=== PATIENT | female | born 1940 | race Caucasian/White ===

== ENCOUNTER 2016-09-23 05:21 | Inpatient (IN) | payer MEDICARE, OTHER ==
[2016-09-22 15:36] VITALS: BMI 25.8
[~2016-09-23] VITALS: Ht 162.6 cm; Wt 69.0 kg
[2016-09-23] VITALS (21 sets, daily range): BP systolic 125–159; BP diastolic 58–85; PULSE 63–88; RESP 17–19; Ht 162.6 cm; Wt 69.0 kg
[2016-09-23] MEDS ORDERED: LACTATED RINGER'S 1,000 ML IV* SCH (05:30)
[2016-09-23] MEDS ORDERED: CEFAZOLIN 2 GM/50 ML (PMX) 50 ML IVPB ONE (05:30)
[2016-09-23] MEDS ORDERED: ROCURONIUM 50 MG INJ ONE (06:47)
[2016-09-23] MEDS ORDERED: GLYCOPYRROLATE 1 MG INJ ONE (06:47)
[2016-09-23] MEDS ORDERED: LIDOCAINE 2% (SDV) 5 ML INJ ONE (06:47)
[2016-09-23] MEDS ORDERED: NEOSTIGMINE 3 MG/3 ML SYRINGE ONE (06:47)
[2016-09-23] MEDS ORDERED: PROPOFOL 20 ML ONE (06:47)
[2016-09-23] MEDS ORDERED: FENTAnyl 50 MCG/ML VIAL ONE (06:48)
[2016-09-23] MEDS ORDERED: MIDAZOLAM 1 MG/ML 2 ML INJ ONE (06:48)
[2016-09-23] MEDS ORDERED: BUPIVACAINE 0.25%/EPI (SDV) 30 ML INJ ONE ×2 (06:54→12:34)
[2016-09-23] MEDS ORDERED: GELATIN SIZE 100 SPONGE ONE (06:54)
[2016-09-23] MEDS ORDERED: POLYMYXIN/BACITRACIN 1L IRRIG ONE (06:54)
[2016-09-23] MEDS ORDERED: BUPIVACAINE 0.25% (MPF) 30 ML INJ ONE (06:54)
[2016-09-23] MEDS ORDERED: THROMBIN 5000 UNIT VIAL ONE (06:55)
[2016-09-23] MEDS ORDERED: ONDANSETRON 4 MG INJ IV PRN (07:00)
[2016-09-23] MEDS ORDERED: MIDAZOLAM 1 MG/ML 2 ML INJ IV PRN (07:00)
[2016-09-23] MEDS ORDERED: CEFAZOLIN 1 GM INJ ONE (07:00)
[2016-09-23] MEDS ORDERED: hydrALAzine 20 MG INJ IV PRN (07:00)
[2016-09-23] MEDS ORDERED: EPHEDrine SULFATE 50 MG/5 ML SYG IV PRN (07:00)
[2016-09-23] MEDS ORDERED: ATROPINE 1 MG/10 ML SYRINGE IV PRN (07:00)
[2016-09-23] MEDS ORDERED: DEXAMETHASONE 4 MG/ML 1 ML INJ ONE (07:00)
[2016-09-23] MEDS ORDERED: ONDANSETRON 4 MG INJ ONE (07:00)
[2016-09-23] MEDS ORDERED: MEPERIDINE 25 MG INJ IV PRN (07:00)
[2016-09-23] MEDS ORDERED: morphine (1 MG/ML) 10ML SYRINGE IV PRN ×3 (07:00)
[2016-09-23] MEDS ORDERED: OXYCODONE/ACETAMINOPHEN (5/325) TAB PO PRN ×2 (07:00)
[2016-09-23] MEDS ORDERED: FENTAnyl 50 MCG/ML VIAL IV PRN ×2 (07:00)
[2016-09-23] MEDS ORDERED: DIPHENHYDRAMINE 50 MG INJ IV PRN (07:00)
[2016-09-23] MEDS ORDERED: LABETALOL HCL 20MG INJ IV PRN (07:00)
[2016-09-23] MEDS ORDERED: HYDROmorphONE (0.2 MG/ML) 10ML SYG IV PRN ×3 (07:00)
--- NOTE | 2016-09-23 07:25 | HPN ---
Date/Time of Note Date/Time of Note DATE: 09/23/16 TIME: 07:25 Interval H&P Admission Note Pt. seen H&P reviewed: No system changes CANDICE PORTER MD Sep 23, 2016 07:25
[2016-09-23] MEDS ORDERED: CITA-104 PO (07:49)
[2016-09-23] MEDS ORDERED: LORA1TAB PO (07:49)
[2016-09-23] MEDS ORDERED: IBUP200C11 PO (07:49)
[2016-09-23] MEDS ORDERED: VENL75TA PO (07:49)
[2016-09-23] MEDS ORDERED: METO25TA4 PO (07:49)
[2016-09-23] MEDS ORDERED: AMLO-147 PO (07:49)
[2016-09-23] MEDS ORDERED: hydrALAzine 20 MG INJ ONE (08:34)
[2016-09-23] MEDS ORDERED: BUPIVACAINE LIPOSOME/PF 266 MG/20 ML VIAL INFIL SCH (09:00)
[2016-09-23] MEDS ORDERED: THROMBIN 5000 UNIT VIAL TOP ONE (12:43)
[2016-09-23] MEDS ORDERED: NACL 0.9% 3 ML SYG IV SCH (14:00)
[2016-09-23] MEDS ORDERED: CEPASTAT LOZENGE MT PRN (14:00)
[2016-09-23] MEDS ORDERED: BETHANECHOL 25 MG TAB PO PRN (14:00)
[2016-09-23] MEDS ORDERED: HYDROCODONE/APAP (5/325) TAB PO PRN ×2 (14:00)
[2016-09-23] MEDS ORDERED: AL HYDROX/MG HYDROX/SIMETH 30 ML CUP PO PRN (14:00)
[2016-09-23] MEDS ORDERED: ACETAMINOPHEN 325 MG TAB PO PRN (14:00)
[2016-09-23] MEDS ORDERED: NALOXONE (0.4 MG/ML) INJ IV PRN (14:00)
[2016-09-23] MEDS ORDERED: ZOLPIDEM 5 MG TAB PO PRN (14:00)
[2016-09-23] MEDS ORDERED: PROCHLORPERAZINE 10 MG TAB PO PRN (14:00)
[2016-09-23] MEDS ORDERED: TRIMETHOBENZAMIDE 100 MG/ML VIAL IM PRN (14:00)
[2016-09-23] MEDS ORDERED: DIPHENHYDRAMINE 50 MG CAP PO PRN (14:00)
[2016-09-23] MEDS ORDERED: HYDROmorphONE 0.2 MG/ML PCA ONE (14:02)
[2016-09-23] MEDS: HYDROmorphONE 0.2 MG/ML PCA IV SCH (14:11)
[2016-09-23] MEDS ORDERED: LORAZEPAM 1 MG TAB PO PRN (14:30)
[2016-09-23] MEDS ORDERED: LORAZEPAM 0.5 MG TAB PO PRN (14:30)
--- NOTE | 2016-09-23 14:42 | RADRPT ---
PROCEDURE: Intraoperative imaging of the lumbar spine with fluoroscopy. CLINICAL INDICATION: Back pain. Intraoperative. TECHNIQUE: 10 images of the lumbar spine were obtained in the operating room with an image intensi fier. No radiologist was in attendance. 46.2 seconds of fluoroscopy time was used. COMPARISON: No prior study is available for comparison. FINDINGS: Images demonstrate surgical instruments overlying the lumbar spine. IMPRESSION: 1. Intraoperative imaging of the lumbar spine. RPTAT: QQ .Juan Smith MD, MD Date Time Electronically viewed and signed by .Juan Smith MD, MD on 09/23/2016 14:42 .R/
[2016-09-23] MEDS ORDERED: CEFAZOLIN 1 GM/50 ML (PMX) 50 ML IVPB ONE (14:57)
[2016-09-23] MEDS: CEFAZOLIN 1 GM/50 ML (PMX) 50 ML IVPB SCH ×2 (15:07→20:40)
--- NOTE | 2016-09-23 15:37 | CONS ---
DATE OF ADMISSION: 09/23/2016 DATE OF CONSULTATION: TYPE OF CONSULTATION: Nephrology. Thank you, Dr. Tello for asking me to participate in the medical management of this patient. REASON FOR CONSULTATION: To manage the patient's hypertension, hyperlipidemia, COPD and chronic con stipation. HISTORY OF PRESENT ILLNESS: This 76-year-old female is now in the postanesthesia recovery room afte r undergoing a lumbar spine surgery by Dr. Tello. The patient is just coming out of anesthesia. She does respond to verbal stimuli and follows simple commands. The patient apparently was having what was thought to be claudication at rest; however, according to a note on the chart from the [facility] a vascular workup was done and did not find vascular disease. An MRI was do ne which showed severe degenerative disk disease. The patient was advised to undergo a lumbar spine surgery, which was performed today. The patient underwent an L3-L5 levels laminectomy. This was d one for severe spinal stenosis and leg pain. PAST MEDICAL HISTORY: Chronic obstructive pulmonary disease, aortic atherosclerosis, hypertension, hyperlipidemia and chronic constipation. PAST MEDICAL HISTORY: She is a former smoker. FAMILY HISTORY: Father, colon cancer. Mother, diabetes mellitus. SOCIAL HISTORY: The patient has a 50 to 45-dlbl-drzq cigarette smoking history. He has not smoked in 8 years. She drinks alcohol occasionally. CURRENT MEDICATIONS: Include the followin. Amlodipine 10 mg a day. 2. Vitamin D3 2000 units a day. 3. Citalopram 60 mg a day. 4. Clonidine 0.1 mg twice a day. 5. Ibuprofen p.r.n. pain, which was discontinued preoperatively. 6. Lorazepam 1 mg one-half tablet twice a day as needed for pain. 7. Metoprolol 25 mg twice a day. 8. Venlafaxine 75 mg a day. PHYSICAL EXAMINATION: GENERAL: At this time reveals an elderly female in no apparent distress. She is lethargic, but philippe uses to verbal stimuli. VITAL SIGNS: Pulse of 80, blood pressure 140/59, O2 saturation 98% on 2 liter nasal cannula. HEENT: Head normocephalic. EYES: Extraocular muscles intact. NOSE AND MOUTH: Normal. NECK: Supple. No neck vein distention. LUNGS: Clear to auscultation. HEART: Regular rhythm. No murmurs, gallops or rubs. ABDOMEN: Soft. EXTREMITIES: No peripheral edema. IMPRESSION: The patient's vital signs are stable postoperatively. Her blood pressure is in an acce ptable range. I will manage the patient's hypertension, hyperlipidemia, COPD and depression. PLAN: 1. Resume routine medications. 2. Check labs in the morning. 3. Postop lumbar spine surgery protocol. 4. I will follow the patient along with you medically. Dictated By: KODI RASCON MD, ND/SONYA Conf#: [id number] DID#: [id number]
[2016-09-23] MEDS: DEXTROSE 5%-0.45% NACL 1,000 ML IV SCH (16:03)
--- NOTE | 2016-09-23 17:12 | EN ---
Date/Time of Note Date/Time of Note DATE: 09/23/16 TIME: 17:07 Event Note Surgery Surgery Event Note ORTHO SPINE STAFF POST OP CHECK S: "Having really good dreams. Speech slurred, but alert and reasonably oriented to time and place. Minor pain in lumbar. "i'm not really having any pain." O: Wounds dry. Calf/ankle strength is normal. Sensation in feet/ankles normal. A: Stable PO course. P: Per Landscape Photographer. Also: 1. Ambulate in AM 2. Progress diet 3. Lumbar corset. 4. Consider DC in AM if conditions permit. 5. Follow up in [place] next week. KATERIN HERNANDEZ MD Sep 23, 2016 17:11
--- NOTE | 2016-09-23 17:14 | EN ---
Date/Time of Note Date/Time of Note DATE: 09/23/16 TIME: 17:12 Event Note Surgery Surgery Event Note BRIEF OP NOTE PRE OP DX: SPINAL STENOSIS, L3-L5 R>L, L3-4> L4-L5 POST OP DX: SAME PROCEDURE: MIS FERRO L3-L5, BILATERAL FROM RIGHT MIS APPROACH X2. SURGEON MARY [employer] PICKER [place] EBL 10 CC COMPLICATIONS NONE DRAINS NONE FINDINGS; STENOSIS EXPECTED, SEVERE L3-4>L4-L5 DISP TO PAR IN SATISFACTORY CONDITION. KATERIN HERNANDEZ MD Sep 23, 2016 17:14
[2016-09-23] MEDS ORDERED: CEFAZOLIN 1 GM/50 ML (PMX) 50 ML IVPB SCH (18:00)
--- NOTE | 2016-09-23 18:51 | OPR ---
DATE OF OPERATION: 09/23/2016 PREOPERATIVE DIAGNOSIS: Severe spinal stenosis, L3-L4 greater than L4-L5. POSTOPERATIVE DIAGNOSIS: Severe spinal stenosis, L3-L4 greater than L4-L5. SURGEON: Aj Tello MD CONCRETE PANEL INSTALLER: Blaze Chinchilla MD OPERATION PERFORMED: 1. MIS lateral approach to L3-L4 for bilateral decompressive laminectomy, L3- L4. 2. MIS lateral approach to L4-L5 for L4-L5 bilateral decompressive laminectomy. DESCRIPTION OF PROCEDURE: The patient was identified in the holding unit, and her questions were answered. The surgical site was marked, and she was taken to the operating room and received general endotracheal anesthetic. She was carefully positioned face down on the [place] [employer] spinal table with care being taken to protect all pressure points. Steridrapes were applied, and the wound was prepped and draped in the usual manner. C-arm was brought into the field, and working x-rays were taken in order to delineate a line 4 cm lateral to the midline which corresponded to 2 crosswise lines at the L3-L4 and the L4-L5 disk spaces. Beginning at the L3-L4 disk space, the skin was infiltrated with Marcaine, and a 25 mm incision was made 4 cm lateral to the midline overlying the L3-L4 disk space. This was taken down through the fascia using first sharp and then electrocautery. Blunt dissection was then used to isolate the L3-L4 facet. Sequential dilators were then used. A 6 cm x tube retractor was then employed and fastened into place using the snake support. The microscope was brought into the field. The soft tissue was removed from this facet. The high-speed drill was then brought in, and the inferior aspect of the inferior articulating process of L3 was drilled off. The superior facet was then exposed. This was carefully drilled back to the level of the pedicle. Additional inferior facet was taken proximally onto the lamina and eventually well across the midline. This was done meticulously, and the ligamentum flavum was allowed to remain in place. Once adequate bony decompression had been obtained, well lateral to the pedicle, superior to the disk space and across the midline, the ligamentum flavum was removed piecemeal. This enabled us to palpate along the L4 pedicle, up into the L3-L4 foramen where the superior facet had been removed, proximally to well above the disk space, and across the midline to the facet joint on the left at L3-L4. The wound was then carefully irrigated, and Marcaine with epinephrine was carefully applied to the thecal sac. Exparel 10 mL was infiltrated into the muscles. The retractor had been removed very carefully with bipolar being used to attend to any wall bleeders. Then #1 Vicryl was used for the fascia followed by 2-0 for the subcutaneous tissue followed by 4-0 Monocryl followed by Dermabond. The second procedure was done at L4-L5 on the right and was identical. From 4 cm lateral, a 25 mm incision was made and taken down through the fascia. The L4 -L5 facet joint was palpated manually with blunt dissection. Dilators were then employed, and a 6 cm x tube retractor was then placed into position and fashioned with a snake articulating arm. The facet was then denuded of bone medially, and the intralaminar space was visualized, and soft tissue was removed down to the level of the ligamentum flavum. The drill was employed to remove portions of the facet out to the level of the pedicle and proximally to above the level of the disk space and then across the midline. The ligamentum flavum was then removed piecemeal. We carefully inspected to well across the midline, out into the foramen on the right, distally along the L5 pedicle and then proximally. We irrigated the wound carefully. We applied a small amount of Marcaine with epinephrine and a small amount of Surgifoam. We then removed the retractor carefully using a bipolar to attend to any wall bleeders once the retractor was removed. The fascia was closed with #1 Vicryl. Subcutaneous tissue was closed with 2-0, and Monocryl was used for the skin, followed by Dermabond. SSEP was monitored during the procedure and was observed to return to normal across L3, L4 and L5 roots bilaterally. The sponge and instrument counts were reported as correct. The estimated blood loss was less than 10 mL. The patient tolerated the procedure well without complications and was returned to the supine position, extubated and transferred to the recovery room in satisfactory condition, breathing spontaneously. Dictated By: AJ GRACE/SONYA Conf#: [id number] DID#: [id number] ABY
[2016-09-23] MEDS: RANITIDINE 150 MG TAB PO SCH (20:32)
[2016-09-23] MEDS: METOPROLOL 25 MG TAB PO SCH (20:32)
[2016-09-24] MEDS: DEXTROSE 5%-0.45% NACL 1,000 ML IV SCH ×2 (00:03→11:54)
[2016-09-24 00:05] VITALS: BP 134/95; PULSE 86; RESP 18
[2016-09-24] MEDS: CEFAZOLIN 1 GM/50 ML (PMX) 50 ML IVPB SCH ×2 (03:03→09:21)
[2016-09-24 05:15] LABS: ALBUMIN 3.2 g/dl (3.3-4.9)
[2016-09-24 05:16] LABS: POTASSIUM 4.2 mmol/L (3.5-5.1)
[2016-09-24 05:18] LABS: ALBUMIN/GLOBULIN RATIO 1.39; BILIRUBIN,INDIRECT 0.1 mg/dl (0-1.1); BILIRUBIN,TOTAL 0.1 mg/dl (0.2-1.3); CREATININE 0.89 mg/dl (0.44-1.00); TOTAL PROTEIN 5.5 g/dl (6.1-8.1)
[2016-09-24 05:19] LABS: CALCIUM 8.8 mg/dl (8.4-10.2)
[2016-09-24 05:38] LABS: BASOPHILS % 0.2 % (0.0-2.0); HEMATOCRIT 34.1 % (37.0-47.0); HEMOGLOBIN 11.4 g/dl (12.0-16.0); LYMPHOCYTES # 1.4 10^3/ul (0.8-2.9); LYMPHOCYTES % 12.3 % (15.0-51.0); MEAN CORPUSCULAR HEMOGLOBIN 31.3 pg (29.0-33.0); MEAN CORPUSCULAR HGB CONC 33.5 g/dl (32.0-37.0); MEAN CORPUSCULAR VOLUME 93.3 fl (82.0-101.0); MONOCYTE # 0.9 10^3/ul (0.3-0.9); NEUTROPHILS % 79.5 % (39.0-77.0); PLATELET COUNT 239 10^3/UL (140-440); RED BLOOD COUNT 3.65 10^6/ul (4.20-5.40); RED CELL DISTRIBUTION WIDTH 14.2 % (11.5-14.5); UNCORRECTED WBC 11.4 10^3/ul (4.8-10.8); WHITE BLOOD COUNT 11.4 10^3/ul (4.8-10.8)
[2016-09-24 06:14] LABS: CONDITION 1
[2016-09-24 08:36] VITALS: BP 148/64; RESP 18
[2016-09-24] MEDS: DOCUSATE SODIUM 100 MG CAP PO SCH ×2 (09:20→21:21)
[2016-09-24] MEDS: METOPROLOL 25 MG TAB PO SCH ×2 (09:20→21:22)
[2016-09-24] MEDS: FERROUS SULFATE (EC) 325 MG TAB PO SCH ×3 (09:20→21:21)
[2016-09-24] MEDS: VENLAFAXINE 75 MG TABLET PO SCH (09:20)
[2016-09-24] MEDS: ASCORBIC ACID 500 MG TAB PO SCH ×2 (09:21→21:22)
[2016-09-24] MEDS: CITALOPRAM 20 MG TAB PO SCH (09:21)
[2016-09-24] MEDS: AMLODIPINE 10 MG TAB PO SCH (09:21)
[2016-09-24] MEDS: RANITIDINE 150 MG TAB PO SCH ×2 (09:21→21:22)
--- NOTE | 2016-09-24 09:54 | CONS ---
Date/Time of Note Date/Time of Note DATE: 09/24/16 TIME: 09:45 Assessment/Plan Assessment/Plan Chief Complaint/Hosp Course 1. She is 1 day post op a lumbar spine surgery . She is doing well . 2. continue current medication and PT . 3. liver enzymes are elevated . She is not having abdominal pain . will repeat tomorrow . Problems: Consultation Date/Type/Reason Admit Date/Time Initial Consult Date 24 HR Interval Summary Free Text/Dictation She is doing well . she is 1 day post op a lumbar spine surgery . Constitutional: improved, no complaints Exam/Review of Systems Vital Signs Vitals Vital Signs Date Time Temp Pulse Resp B/P Pulse Ox O2 Delivery O2 Flow Rate FiO2 09/24/16 08:36 98.4 75 18 148/64 97 09/24/16 00:05 Nasal Cannula 2.0 Intake and Output 09/23/16 09/23/16 09/24/16 15:00 23:00 07:00 Intake Total 350 ml 1450 ml Output Total 550 ml 400 ml 2000 ml Balance -550 ml -50 ml -550 ml Exam Constitutional: alert, oriented, well developed Psych: no complaints Respiratory: clear to auscultation, diminished breath sounds Cardiovascular: regular rate and rhythm Musculoskeletal: nl extremities to inspection Results Result Diagram: 09/24/16 0435 09/24/16 0435 Results 24 hrs Laboratory Tests Test 09/24/16 04:35 Alanine Aminotransferase (ALT/SGPT) 105 H Albumin 3.2 L Albumin/Globulin Ratio 1.39 Alkaline Phosphatase 103 Anion Gap 11 Aspartate Amino Transf (AST/SGOT) 110 H Basophils # 0.0 Basophils % 0.2 Blood Urea Nitrogen 15 Calcium Level 8.8 Carbon Dioxide Level 30 Chloride Level 103 Creatinine 0.89 Direct Bilirubin 0.00 Eosinophils # 0.0 Eosinophils % 0.0 Globulin 2.30 Glucose Level 120 Hematocrit 34.1 L Hemoglobin 11.4 L Indirect Bilirubin 0.1 Lymphocytes # 1.4 Lymphocytes % 12.3 L Mean Corpuscular Hemoglobin 31.3 Mean Corpuscular Hemoglobin Concent 33.5 Mean Corpuscular Volume 93.3 Mean Platelet Volume 8.0 Monocytes # 0.9 Monocytes % 8.0 Neutrophils # 9.0 H Neutrophils % 79.5 H Nucleated Red Blood Cells # 0.0 Nucleated Red Blood Cells % 0.0 Platelet Count 239 Potassium Level 4.2 Red Blood Count 3.65 L Red Cell Distribution Width 14.2 Sodium Level 140 Total Bilirubin 0.1 L Total Protein 5.5 L White Blood Count 11.4 H Medications Medications Current Medications Lactated Ringer's 1,000 ml @ 25 mls/hr Q24H IV* ; Start 09/23/16 at 05:30; Stop 09/24/16 at 21:29 Dextrose/Sodium Chloride (D5-1/2ns) 1,000 ml @ 100 mls/hr Q10H IV Last administered on 09/24/16 00:03; Admin Dose 100 MLS/HR; Start 09/23/16 at 13:55 Acetaminophen/ Hydrocodone Bitart ([place] (5/325)) 1 tab Q4H PRN PO PAIN LEVEL 1 -5; Start 09/23/16 at 14:00; Status Future Hold Acetaminophen/ Hydrocodone Bitart ([place] (5/325)) 2 tab Q4H PRN PO PAIN LEVEL 6 -10; Start 09/23/16 at 14:00; Status Future Hold Zolpidem Tartrate (Ambien) 5 mg HS PRN PO INSOMNIA; Start 09/23/16 at 14:00 Prochlorperazine (Compazine) 10 mg Q4H PRN PO NAUSEA AND/OR VOMITING; Start at 14:00 Trimethobenzamide HCl (Tigan) 200 mg Q4H PRN IM NAUSEA AND/OR VOMITING; Start 09/23/16 at 14:00 Ondansetron HCl (Zofran Inj) 4 mg Q6H PRN IV NAUSEA AND/OR VOMITING; Start at 14:00 Al Hydrox/Mg Hydrox/Simethicone (Mag-Al Plus) 15 ml Q4H PRN PO CONSTIPATION; Start 09/23/16 at 14:00 Docusate Sodium (Colace) 100 mg BID PO Last administered on 09/24/16 09:20; Admin Dose 100 MG; Start 09/24/16 at 09:00 Acetaminophen (Tylenol Tab) 650 mg Q4H PRN PO TEMP GREATER THAN 101F OR MAN; Start 09/23/16 at 14:00 Ascorbic Acid (Vitamin C) 1,000 mg BID PO Last administered on 09/24/16 09:21 ; Admin Dose 1,000 MG; Start 09/24/16 at 09:00 Ferrous Sulfate (Ferrous Sulfate (Ec)) 325 mg TID PO Last administered on 09:20; Admin Dose 325 MG; Start 09/24/16 at 09:00 Ranitidine HCl (Zantac) 150 mg BID PO Last administered on 09/24/16 09:21; Admin Dose 150 MG; Start 09/23/16 at 21:00 Diazepam (Valium) 5 mg Q4H PRN PO MUSCLE SPASMS; Start 09/23/16 at 14:00 Diazepam (Valium) 5 mg Q4H PRN IM MUSCLE SPASMS; Start 09/23/16 at 14:00 Phenol (Cepastat Lozenge) 1 lozenge PRN PRN MT SORE THROAT; Start 09/23/16 at 14:00 Bethanechol Chloride (Urecholine) 25 mg PRN PRN PO UNABLE TO VOID; Start at 14:00 Diphenhydramine HCl (Benadryl) 50 mg Q6H PRN PO PRURITUS; Start 09/23/16 at 14: 00 Hydromorphone HCl (Dilaudid ASSESSOR) Q4PCA IV Last administered on 09/23/16 14:11 ; Admin Dose 6 MG; Start 09/23/16 at 14:00 Naloxone HCl (Narcan) 0.2 mg Q2M PRN IV RR 8 BREATHS/MIN OR LESS; Start at 14:00 Amlodipine Besylate (Norvasc) 10 mg DAILY PO Last administered on 09/24/16 09: 21; Admin Dose 10 MG; Start 09/24/16 at 09:00 Citalopram Hydrobromide (Celexa) 60 mg DAILY PO Last administered on 09/24/16 09:21; Admin Dose 60 MG; Start 09/24/16 at 09:00 Metoprolol Tartrate (Lopressor) 25 mg BID PO Last administered on 09/24/16 09: 20; Admin Dose 25 MG; Start 09/23/16 at 21:00 Venlafaxine HCl (Effexor) 75 mg DAILY PO Last administered on 09/24/16 09:20; Admin Dose 75 MG; Start 09/24/16 at 09:00 Lorazepam (Ativan) 0.5 mg BID PRN PO ANXIETY; Start 09/23/16 at 14:30 KODI RASCON MD Sep 24, 2016 09:53
[2016-09-24] MEDS: ONDANSETRON 4 MG INJ IV PRN (13:23)
[2016-09-24] MEDS: DIAZEPAM 5 MG TAB PO PRN ×2 (16:16→21:22)
[2016-09-24] MEDS: ALBUTEROL/IPRATROPIUM (NEB) 3 ML AMP HHN PRN (17:58)
[2016-09-24 20:15] VITALS: BP 144/89; RESP 22
[2016-09-24] MEDS: HYDROmorphONE 0.2 MG/ML PCA IV SCH (20:20)
[2016-09-24] MEDS: SALMETEROL/FLUTICASONE 250/50 INHA INH SCH (21:23)
[2016-09-25 00:05] VITALS: BP 160/74; PULSE 92; RESP 20
[2016-09-25] MEDS: DEXTROSE 5%-0.45% NACL 1,000 ML IV SCH ×3 (01:02→12:32)
[2016-09-25 05:23] LABS: ADD SCAN DIFF NO
[2016-09-25 05:39] LABS: BASOPHILS % 0.2 % (0.0-2.0); EOSINOPHILS % 0.1 % (0.0-7.0); HEMATOCRIT 34.6 % (37.0-47.0); HEMOGLOBIN 11.5 g/dl (12.0-16.0); LYMPHOCYTES # 1.2 10^3/ul (0.8-2.9); LYMPHOCYTES % 8.9 % (15.0-51.0); MEAN CORPUSCULAR HEMOGLOBIN 31.3 pg (29.0-33.0); MEAN CORPUSCULAR HGB CONC 33.2 g/dl (32.0-37.0); MEAN PLATELET VOLUME 10.4 fl (7.4-10.4); MONOCYTE # 1.4 10^3/ul (0.3-0.9); MONOCYTES % 10.8 % (0.0-11.0); NEUTROPHIL # 10.6 10^3/ul (1.6-7.5); NEUTROPHILS % 79.7 % (39.0-77.0); PLATELET COUNT 178 10^3/UL (140-415); RED BLOOD COUNT 3.68 10^6/ul (4.20-5.40); RED CELL DISTRIBUTION WIDTH 13.5 % (11.5-14.5); WHITE BLOOD COUNT 13.2 10^3/ul (4.8-10.8)
[2016-09-25 05:58] LABS: POTASSIUM 4.2 mmol/L (3.5-5.1)
[2016-09-25 06:00] LABS: ALBUMIN/GLOBULIN RATIO 1.3; BILIRUBIN,INDIRECT 0.2 mg/dl (0-1.1); BILIRUBIN,TOTAL 0.2 mg/dl (0.2-1.3); CREATININE 0.64 mg/dl (0.44-1.00); TOTAL PROTEIN 5.3 g/dl (6.1-8.1)
[2016-09-25 06:01] LABS: CALCIUM 8.9 mg/dl (8.4-10.2)
[2016-09-25] MEDS: ONDANSETRON 4 MG INJ IV PRN (06:48)
[2016-09-25 08:00] VITALS: BP 196/74; RESP 20
[2016-09-25] MEDS: VENLAFAXINE 75 MG TABLET PO SCH (08:30)
[2016-09-25] MEDS: ASCORBIC ACID 500 MG TAB PO SCH ×2 (08:30→22:05)
[2016-09-25] MEDS: FERROUS SULFATE (EC) 325 MG TAB PO SCH ×3 (08:30→22:06)
[2016-09-25] MEDS: CITALOPRAM 20 MG TAB PO SCH (08:31)
[2016-09-25] MEDS: METOPROLOL 25 MG TAB PO SCH ×2 (08:31→22:05)
[2016-09-25] MEDS: AMLODIPINE 10 MG TAB PO SCH (08:32)
[2016-09-25] MEDS: RANITIDINE 150 MG TAB PO SCH ×2 (08:32→22:05)
[2016-09-25] MEDS: DOCUSATE SODIUM 100 MG CAP PO SCH ×2 (08:32→22:05)
[2016-09-25] MEDS: SALMETEROL/FLUTICASONE 250/50 INHA INH SCH ×2 (08:36→22:06)
[2016-09-25] MEDS: DIAZEPAM 5 MG TAB PO PRN (08:36)
--- NOTE | 2016-09-25 08:55 | CONS ---
Date/Time of Note Date/Time of Note DATE: 09/25/16 TIME: 08:52 Assessment/Plan Assessment/Plan Chief Complaint/Hosp Course 1. She is 2 days post op a lumbar spine surgery . she is having back pain 2. continue current medication and PT . 3. liver enzymes were elevated and are now coming down . 4. BP is elevated . will add clonidine prn . Problems: Consultation Date/Type/Reason Admit Date/Time 24 HR Interval Summary Free Text/Dictation she is having back pain . Exam/Review of Systems Vital Signs Vitals Vital Signs Date Time Temp Pulse Resp B/P Pulse Ox O2 Delivery O2 Flow Rate FiO2 09/25/16 08:00 98.7 196 20 196/74 95 09/25/16 07:42 2.0 09/25/16 00:05 Nasal Cannula Intake and Output 09/24/16 09/24/16 09/25/16 15:00 23:00 07:00 Intake Total 1250 ml 1300 ml Output Total 600 ml 1700 ml Balance 650 ml -400 ml Exam Constitutional: alert, oriented, well developed Respiratory: clear to auscultation, normal air movement Cardiovascular: nl pulses, regular rate and rhythm Gastrointestinal: nl liver, spleen, non-tender, soft Musculoskeletal: nl extremities to inspection Results Result Diagram: 09/25/16 0430 09/25/16 0430 Results 24 hrs Laboratory Tests Test 09/25/16 04:30 Alanine Aminotransferase (ALT/SGPT) 60 Albumin 3.0 L Albumin/Globulin Ratio 1.30 Alkaline Phosphatase 93 Anion Gap 10 Aspartate Amino Transf (AST/SGOT) 68 H Basophils # 0.0 Basophils % 0.2 Blood Urea Nitrogen 11 Calcium Level 8.9 Carbon Dioxide Level 30 Chloride Level 99 Creatinine 0.64 Direct Bilirubin 0.00 Eosinophils # 0.0 Eosinophils % 0.1 Globulin 2.30 Glucose Level 106 Hematocrit 34.6 L Hemoglobin 11.5 L Indirect Bilirubin 0.2 Lymphocytes # 1.2 Lymphocytes % 8.9 L Mean Corpuscular Hemoglobin 31.3 Mean Corpuscular Hemoglobin Concent 33.2 Mean Corpuscular Volume 94.0 Mean Platelet Volume 10.4 # Monocytes # 1.4 H Monocytes % 10.8 Neutrophils # 10.6 H Neutrophils % 79.7 H Nucleated Red Blood Cells # 0.0 Nucleated Red Blood Cells % 0.0 Platelet Count 178 Potassium Level 4.2 Red Blood Count 3.68 L Red Cell Distribution Width 13.5 Sodium Level 135 Total Bilirubin 0.2 Total Protein 5.3 L White Blood Count 13.2 H Medications Medications Current Medications Dextrose/Sodium Chloride (D5-1/2ns) 1,000 ml @ 100 mls/hr Q10H IV Last administered on 09/25/16 01:02; Admin Dose 100 MLS/HR; Start 09/23/16 at 13:55 Acetaminophen/ Hydrocodone Bitart ([place] (5/325)) 1 tab Q4H PRN PO PAIN LEVEL 1 -5; Start 09/23/16 at 14:00; Status Future Hold Acetaminophen/ Hydrocodone Bitart ([place] (5/325)) 2 tab Q4H PRN PO PAIN LEVEL 6 -10; Start 09/23/16 at 14:00; Status Future Hold Zolpidem Tartrate (Ambien) 5 mg HS PRN PO INSOMNIA; Start 09/23/16 at 14:00 Prochlorperazine (Compazine) 10 mg Q4H PRN PO NAUSEA AND/OR VOMITING; Start at 14:00 Trimethobenzamide HCl (Tigan) 200 mg Q4H PRN IM NAUSEA AND/OR VOMITING; Start 09/23/16 at 14:00 Ondansetron HCl (Zofran Inj) 4 mg Q6H PRN IV NAUSEA AND/OR VOMITING Last administered on 09/25/16 06:48; Admin Dose 4 MG; Start 09/23/16 at 14:00 Al Hydrox/Mg Hydrox/Simethicone (Mag-Al Plus) 15 ml Q4H PRN PO CONSTIPATION; Start 09/23/16 at 14:00 Docusate Sodium (Colace) 100 mg BID PO Last administered on 09/25/16 08:32; Admin Dose 100 MG; Start 09/24/16 at 09:00 Acetaminophen (Tylenol Tab) 650 mg Q4H PRN PO TEMP GREATER THAN 101F OR MAN; Start 09/23/16 at 14:00 Ascorbic Acid (Vitamin C) 1,000 mg BID PO Last administered on 09/25/16 08:30 ; Admin Dose 1,000 MG; Start 09/24/16 at 09:00 Ferrous Sulfate (Ferrous Sulfate (Ec)) 325 mg TID PO Last administered on 08:30; Admin Dose 325 MG; Start 09/24/16 at 09:00 Ranitidine HCl (Zantac) 150 mg BID PO Last administered on 09/25/16 08:32; Admin Dose 150 MG; Start 09/23/16 at 21:00 Diazepam (Valium) 5 mg Q4H PRN PO MUSCLE SPASMS Last administered on 09/25/16 08:36; Admin Dose 5 MG; Start 09/23/16 at 14:00 Diazepam (Valium) 5 mg Q4H PRN IM MUSCLE SPASMS; Start 09/23/16 at 14:00 Phenol (Cepastat Lozenge) 1 lozenge PRN PRN MT SORE THROAT; Start 09/23/16 at 14:00 Bethanechol Chloride (Urecholine) 25 mg PRN PRN PO UNABLE TO VOID; Start at 14:00 Diphenhydramine HCl (Benadryl) 50 mg Q6H PRN PO PRURITUS; Start 09/23/16 at 14: 00 Hydromorphone HCl (Dilaudid LAND MEASURER) Q4PCA IV Last administered on 09/24/16 20:20 ; Admin Dose 6 MG; Start 09/23/16 at 14:00 Naloxone HCl (Narcan) 0.2 mg Q2M PRN IV RR 8 BREATHS/MIN OR LESS; Start at 14:00 Amlodipine Besylate (Norvasc) 10 mg DAILY PO Last administered on 09/25/16 08: 32; Admin Dose 10 MG; Start 09/24/16 at 09:00 Citalopram Hydrobromide (Celexa) 60 mg DAILY PO Last administered on 09/25/16 08:31; Admin Dose 60 MG; Start 09/24/16 at 09:00 Metoprolol Tartrate (Lopressor) 25 mg BID PO Last administered on 09/25/16 08: 31; Admin Dose 25 MG; Start 09/23/16 at 21:00 Venlafaxine HCl (Effexor) 75 mg DAILY PO Last administered on 09/25/16 08:30; Admin Dose 75 MG; Start 09/24/16 at 09:00 Lorazepam (Ativan) 0.5 mg BID PRN PO ANXIETY; Start 09/23/16 at 14:30 Salmeterol Xinafoate/ Fluticasone (Advair 250/50 Diskus) 1 inh BID INH Last administered on 09/25/16t 08:36; Admin Dose 1 INH; Start 09/24/16 at 21:00 KODI RASCON MD Sep 25, 2016 08:55
--- NOTE | 2016-09-25 19:05 | EN ---
Date/Time of Note Date/Time of Note DATE: 09/25/16 TIME: 19:00 Event Note Surgery Surgery Event Note POD 2 ORS STAFF Seen in AM and afternoon. S: Posterior thigh pain on the right. Declined PT yesterday. Anxious to go home and avoid placement in rehab facility. O: Good muscular strength, all muscles, bilateral LE's. Wounds dry and soft. Stood in PT. TV with respirometer = 500cc. Alert and oriented, although speech slurred slightly. A; Satisfactory post op course orthopaedically. Is orthopaedically clear for discharge when cleared by PT, RN, and hospitalist. May require home care or placement in rehab facility temporarily. P: PT, with goal of DC by 09/27/16. KATERIN Mahoney MD Sep 25, 2016 19:05
[2016-09-25] MEDS: HYDROmorphONE 0.2 MG/ML PCA IV SCH (19:37)
[2016-09-25 20:00] VITALS: RESP 22
[2016-09-25 21:45] VITALS: BP 140/65; PULSE 65
[2016-09-25 23:00] VITALS: BP 130/59; PULSE 62
[2016-09-26 05:54] LABS: ADD SCAN DIFF NO
[2016-09-26 06:11] LABS: BASOPHILS % 0.2 % (0.0-2.0); EOSINOPHILS # 0.1 10^3/ul (0.0-0.5); EOSINOPHILS % 0.4 % (0.0-7.0); HEMATOCRIT 35.9 % (37.0-47.0); HEMOGLOBIN 11.8 g/dl (12.0-16.0); LYMPHOCYTES % 7.9 % (15.0-51.0); MEAN CORPUSCULAR HEMOGLOBIN 30.6 pg (29.0-33.0); MEAN CORPUSCULAR HGB CONC 32.9 g/dl (32.0-37.0); MEAN CORPUSCULAR VOLUME 93.2 fl (82.0-101.0); MEAN PLATELET VOLUME 9.9 fl (7.4-10.4); MONOCYTE # 1.2 10^3/ul (0.3-0.9); MONOCYTES % 9.1 % (0.0-11.0); NEUTROPHIL # 10.6 10^3/ul (1.6-7.5); PLATELET COUNT 184 10^3/UL (140-415); RED BLOOD COUNT 3.85 10^6/ul (4.20-5.40); RED CELL DISTRIBUTION WIDTH 13.2 % (11.5-14.5); WHITE BLOOD COUNT 12.9 10^3/ul (4.8-10.8)
[2016-09-26 06:27] LABS: ALBUMIN 3.4 g/dl (3.3-4.9)
[2016-09-26 06:28] LABS: POTASSIUM 4.1 mmol/L (3.5-5.1)
[2016-09-26 06:30] LABS: ALBUMIN/GLOBULIN RATIO 1.25; BILIRUBIN,INDIRECT 0.3 mg/dl (0-1.1); BILIRUBIN,TOTAL 0.3 mg/dl (0.2-1.3); CREATININE 0.55 mg/dl (0.44-1.00); TOTAL PROTEIN 6.1 g/dl (6.1-8.1)
[2016-09-26 06:31] LABS: CALCIUM 9.1 mg/dl (8.4-10.2)
[2016-09-26] MEDS: DEXTROSE 5%-0.45% NACL 1,000 ML IV SCH (06:37)
[2016-09-26 07:00] VITALS: BP 143/61; RESP 20
[2016-09-26] MEDS: SALMETEROL/FLUTICASONE 250/50 INHA INH SCH ×2 (09:03→21:46)
[2016-09-26] MEDS: FERROUS SULFATE (EC) 325 MG TAB PO SCH ×3 (09:04→21:46)
[2016-09-26] MEDS: VENLAFAXINE 75 MG TABLET PO SCH (09:04)
[2016-09-26] MEDS: METOPROLOL 25 MG TAB PO SCH ×2 (09:04→21:46)
[2016-09-26] MEDS: CITALOPRAM 20 MG TAB PO SCH (09:04)
[2016-09-26] MEDS: DOCUSATE SODIUM 100 MG CAP PO SCH ×2 (09:05→21:46)
[2016-09-26] MEDS: RANITIDINE 150 MG TAB PO SCH ×2 (09:05→21:46)
[2016-09-26] MEDS: AMLODIPINE 10 MG TAB PO SCH (09:05)
[2016-09-26] MEDS: POLYETHYLENE GLYCOL 17 GM PACKET PO SCH (09:05)
[2016-09-26] MEDS: ASCORBIC ACID 500 MG TAB PO SCH ×2 (09:05→21:46)
--- NOTE | 2016-09-26 12:57 | CONS ---
Date/Time of Note Date/Time of Note DATE: 09/26/16 TIME: 12:49 Consult Date/Type/Reason Admit Date/Time 09/23/2016 Initial Consult Date 09/23/2016 Type of Consultation: medicine Reason for Consultation HTN, COPD, MDD, transaminitis, constipation Ordering Provider: KATERIN HERNANDEZ MD Subjective Patient doing well overall. Feels a little loopy but alert and oriented to person, place, time, and situation. Denies fevers, chills, nausea, vomiting. Has been constipated but is chronically constipated. Denies abdominal pain, sob , chest pain, cough. Objective Vital Signs Date Time Temp Pulse Resp B/P Pulse Ox O2 Delivery O2 Flow Rate FiO2 09/26/16 09:00 18 09/26/16 07:33 Nasal Cannula 2.0 09/26/16 07:00 98.6 102 143/61 96 Intake and Output 09/25/16 09/25/16 09/26/16 15:00 23:00 07:00 Intake Total 1260 ml Balance 1260 ml Gen: NAD, laying in bed comfortably HEENT: OP clear, no scleral icterus. AT/NC Cards: rrr, nml s1/s2, no m/r/g Pulm: mostly CTAB, mild crackles bilateral lung grossman. No wheezes Abd: soft, nt/nd, +BS ext: no c/c/e Results/Medications Result Diagram: 09/26/165 09/26/16454 Results 24 hrs Laboratory Tests Test 09/26/16 04:55 Alanine Aminotransferase (ALT/SGPT) 47 Albumin 3.4 Albumin/Globulin Ratio 1.25 Alkaline Phosphatase 130 H Anion Gap 12 Aspartate Amino Transf (AST/SGOT) 49 H Basophils # 0.0 Basophils % 0.2 Blood Urea Nitrogen 12 Calcium Level 9.1 Carbon Dioxide Level 33 H Chloride Level 94 L Creatinine 0.55 Direct Bilirubin 0.00 Eosinophils # 0.1 Eosinophils % 0.4 Globulin 2.70 Glucose Level 104 Hematocrit 35.9 L Hemoglobin 11.8 L Indirect Bilirubin 0.3 Lymphocytes # 1.0 Lymphocytes % 7.9 L Mean Corpuscular Hemoglobin 30.6 Mean Corpuscular Hemoglobin Concent 32.9 Mean Corpuscular Volume 93.2 Mean Platelet Volume 9.9 Monocytes # 1.2 H Monocytes % 9.1 Neutrophils # 10.6 H Neutrophils % 82.0 H Nucleated Red Blood Cells # 0.0 Nucleated Red Blood Cells % 0.0 Platelet Count 184 Potassium Level 4.1 Red Blood Count 3.85 L Red Cell Distribution Width 13.2 Sodium Level 135 Total Bilirubin 0.3 Total Protein 6.1 White Blood Count 12.9 H Medications Current Medications Dextrose/Sodium Chloride (D5-1/2ns) 1,000 ml @ 50 mls/hr Q20H IV Last administered on 09/25/16 12:32; Admin Dose 100 MLS/HR; Start 09/23/16 at 13:55 Acetaminophen/ Hydrocodone Bitart ([place] (5/325)) 1 tab Q4H PRN PO PAIN LEVEL 1 -5; Start 09/23/16 at 14:00; Status Future Hold Acetaminophen/ Hydrocodone Bitart ([place] (5/325)) 2 tab Q4H PRN PO PAIN LEVEL 6 -10; Start 09/23/16 at 14:00; Status Future Hold Zolpidem Tartrate (Ambien) 5 mg HS PRN PO INSOMNIA; Start 09/23/16 at 14:00 Prochlorperazine (Compazine) 10 mg Q4H PRN PO NAUSEA AND/OR VOMITING; Start at 14:00 Trimethobenzamide HCl (Tigan) 200 mg Q4H PRN IM NAUSEA AND/OR VOMITING; Start 09/23/16 at 14:00 Ondansetron HCl (Zofran Inj) 4 mg Q6H PRN IV NAUSEA AND/OR VOMITING Last administered on 09/25/16 06:48; Admin Dose 4 MG; Start 09/23/16 at 14:00 Al Hydrox/Mg Hydrox/Simethicone (Mag-Al Plus) 15 ml Q4H PRN PO CONSTIPATION; Start 09/23/16 at 14:00 Docusate Sodium (Colace) 100 mg BID PO Last administered on 09/26/16 09:05; Admin Dose 100 MG; Start 09/24/16 at 09:00 Acetaminophen (Tylenol Tab) 650 mg Q4H PRN PO TEMP GREATER THAN 101F OR MAN; Start 09/23/16 at 14:00 Ascorbic Acid (Vitamin C) 1,000 mg BID PO Last administered on 09/26/16 09:05 ; Admin Dose 1,000 MG; Start 09/24/16 at 09:00 Ferrous Sulfate (Ferrous Sulfate (Ec)) 325 mg TID PO Last administered on 09:04; Admin Dose 325 MG; Start 09/24/16 at 09:00 Ranitidine HCl (Zantac) 150 mg BID PO Last administered on 09/26/16 09:05; Admin Dose 150 MG; Start 09/23/16 at 21:00 Diazepam (Valium) 5 mg Q4H PRN PO MUSCLE SPASMS Last administered on 09/25/16 08:36; Admin Dose 5 MG; Start 09/23/16 at 14:00 Diazepam (Valium) 5 mg Q4H PRN IM MUSCLE SPASMS; Start 09/23/16 at 14:00 Phenol (Cepastat Lozenge) 1 lozenge PRN PRN MT SORE THROAT; Start 09/23/16 at 14:00 Bethanechol Chloride (Urecholine) 25 mg PRN PRN PO UNABLE TO VOID; Start at 14:00 Diphenhydramine HCl (Benadryl) 50 mg Q6H PRN PO PRURITUS; Start 09/23/16 at 14: 00 Hydromorphone HCl (Dilaudid AZURE DEVELOPER) Q4PCA IV Last administered on 09/25/16 19:37 ; Admin Dose 6 MG; Start 09/23/16 at 14:00 Naloxone HCl (Narcan) 0.2 mg Q2M PRN IV RR 8 BREATHS/MIN OR LESS; Start at 14:00 Amlodipine Besylate (Norvasc) 10 mg DAILY PO Last administered on 09/26/16 09: 05; Admin Dose 10 MG; Start 09/24/16 at 09:00 Citalopram Hydrobromide (Celexa) 60 mg DAILY PO Last administered on 09/26/16 09:04; Admin Dose 60 MG; Start 09/24/16 at 09:00 Metoprolol Tartrate (Lopressor) 25 mg BID PO Last administered on 09/26/16 09: 04; Admin Dose 25 MG; Start 09/23/16 at 21:00 Venlafaxine HCl (Effexor) 75 mg DAILY PO Last administered on 09/26/16 09:04; Admin Dose 75 MG; Start 09/24/16 at 09:00 Lorazepam (Ativan) 0.5 mg BID PRN PO ANXIETY; Start 09/23/16 at 14:30 Salmeterol Xinafoate/ Fluticasone (Advair 250/50 Diskus) 1 inh BID INH Last administered on 09/26/16 09:03; Admin Dose 1 INH; Start 09/24/16 at 21:00 Clonidine (Catapres) 0.1 mg Q6H PRN PO SBP GREATER THAN 160; Start 09/25/16 at 09:00 Polyethylene Glycol (Miralax) 17 gm DAILY PO Last administered on 09/26/16 09: 05; Admin Dose 17 GM; Start 09/26/16 at 09:00 Assessment/Plan Chief Complaint/Hosp Course 76 y/o pmh HTN, HLD, COPD, MDD, chronic constipation s/p L3-L5 laminectomy by Dr. Hernandez 09/23. Course c/b transaminitis now practically resolved. Problems: (1) DDD (degenerative disc disease) (2) S/P laminectomy (3) Transaminitis (4) Essential hypertension (5) COPD (chronic obstructive pulmonary disease) (6) Major depression, recurrent, full remission (7) Constipation (8) Leukocytosis Additional Assessment/Plan A/P Ortho #DDD s/p L3-L5 laminectomy -pain control per ortho -continue PT -dispo per ortho likely will need SNF for rehab, not ready yet GI #transaminitis-unclear etiology, essentially resolved -will ctm until alk phos normalizes as well #constipation -continue bowel regimen but will add miralax as well Pulm #copd -advair ID #leukocytosis-improving, could be 2/2 stress of procedure -ctm Psych #MDD -citalopram -effexor ELEANOR ALVES MD Sep 26, 2016 12:57
[2016-09-26] MEDS ORDERED: POLYETHYLENE GLYCOL 17 GM PACKET PO SCH (13:00)
[2016-09-26] MEDS: DIAZEPAM 5 MG TAB PO PRN ×2 (18:18→21:59)
[2016-09-26] MEDS: HYDROmorphONE 0.2 MG/ML PCA IV SCH (19:17)
[2016-09-26 19:31] VITALS: BP 165/69; RESP 20
[2016-09-27] MEDS: DEXTROSE 5%-0.45% NACL 1,000 ML IV SCH (02:37)
[2016-09-27 05:05] LABS: ADD SCAN DIFF NO
[2016-09-27 05:11] LABS: BASOPHILS % 0.2 % (0.0-2.0); EOSINOPHILS # 0.1 10^3/ul (0.0-0.5); EOSINOPHILS % 0.6 % (0.0-7.0); HEMOGLOBIN 11.1 g/dl (12.0-16.0); LYMPHOCYTES # 0.7 10^3/ul (0.8-2.9); LYMPHOCYTES % 6.3 % (15.0-51.0); MEAN CORPUSCULAR HEMOGLOBIN 31.1 pg (29.0-33.0); MEAN CORPUSCULAR HGB CONC 33.6 g/dl (32.0-37.0); MEAN CORPUSCULAR VOLUME 92.4 fl (82.0-101.0); MEAN PLATELET VOLUME 9.9 fl (7.4-10.4); NEUTROPHIL # 9.1 10^3/ul (1.6-7.5); NEUTROPHILS % 83.4 % (39.0-77.0); PLATELET COUNT 196 10^3/UL (140-415); RED BLOOD COUNT 3.57 10^6/ul (4.20-5.40); RED CELL DISTRIBUTION WIDTH 13.2 % (11.5-14.5); WHITE BLOOD COUNT 10.9 10^3/ul (4.8-10.8)
[2016-09-27 05:50] LABS: ALBUMIN 3.1 g/dl (3.3-4.9)
[2016-09-27 05:53] LABS: ALBUMIN/GLOBULIN RATIO 1.19; BILIRUBIN,INDIRECT 0.2 mg/dl (0-1.1); BILIRUBIN,TOTAL 0.2 mg/dl (0.2-1.3); CREATININE 0.59 mg/dl (0.44-1.00); TOTAL PROTEIN 5.7 g/dl (6.1-8.1)
[2016-09-27 05:54] LABS: CALCIUM 9.1 mg/dl (8.4-10.2)
[2016-09-27 07:58] VITALS: BP 178/81; RESP 18
[2016-09-27] MEDS: SALMETEROL/FLUTICASONE 250/50 INHA INH SCH ×3 (09:00→20:59)
[2016-09-27] MEDS: CITALOPRAM 20 MG TAB PO SCH (09:19)
[2016-09-27] MEDS: METOPROLOL 25 MG TAB PO SCH ×2 (09:19→21:01)
[2016-09-27] MEDS: AMLODIPINE 10 MG TAB PO SCH (09:19)
[2016-09-27] MEDS: FERROUS SULFATE (EC) 325 MG TAB PO SCH ×3 (09:20→20:59)
[2016-09-27] MEDS: ASCORBIC ACID 500 MG TAB PO SCH ×2 (09:20→20:59)
[2016-09-27] MEDS: RANITIDINE 150 MG TAB PO SCH ×2 (09:20→20:59)
[2016-09-27] MEDS: POLYETHYLENE GLYCOL 17 GM PACKET PO SCH (09:20)
[2016-09-27] MEDS: DOCUSATE SODIUM 100 MG CAP PO SCH ×2 (09:20→20:59)
[2016-09-27] MEDS: VENLAFAXINE 75 MG TABLET PO SCH (09:20)
--- NOTE | 2016-09-27 11:25 | CONS ---
Date/Time of Note Date/Time of Note DATE: 09/27/16 TIME: 11:19 Consult Date/Type/Reason Admit Date/Time 09/23/2016 Initial Consult Date 09/23/2016 Type of Consultation: medicine Reason for Consultation HTN, HLD, COPD, MDD, chronic Constipation Ordering Provider: KATERIN HERNANDEZ MD Subjective Patient has not yet had BM. Denies fevers, chills, nausea, vomiting, diarrhea, sob, cp. Endorses improved pain. Has not been progressing with PT. Still max assist. Objective Vital Signs Date Time Temp Pulse Resp B/P Pulse Ox O2 Delivery O2 Flow Rate FiO2 09/27/16 07:58 98.7 90 18 178/81 100 09/26/16 14:43 2.0 09/26/16 07:33 Nasal Cannula Intake and Output 09/26/16 09/26/16 09/27/16 15:00 23:00 07:00 Intake Total 800 ml 960 ml Balance 800 ml 960 ml Gen: NAD, laying in bed comfortably HEENT: OP clear, no scleral icterus. AT/NC Cards: rrr, nml s1/s2, no m/r/g Pulm: mostly CTAB anterior lung grossman. Abd: soft, nt/nd, +BS ext: no c/c/e Results/Medications Result Diagram: 09/27/1641709/27/16417 Results 24 hrs Laboratory Tests Test 09/27/16 04:18 Alanine Aminotransferase (ALT/SGPT) 36 Albumin 3.1 L Albumin/Globulin Ratio 1.19 Alkaline Phosphatase 109 Anion Gap 10 Aspartate Amino Transf (AST/SGOT) 31 Basophils # 0.0 Basophils % 0.2 Blood Urea Nitrogen 15 Calcium Level 9.1 Carbon Dioxide Level 34 H Chloride Level 94 L Creatinine 0.59 Direct Bilirubin 0.00 Eosinophils # 0.1 Eosinophils % 0.6 Globulin 2.60 Glucose Level 113 Hematocrit 33.0 L Hemoglobin 11.1 L Indirect Bilirubin 0.2 Lymphocytes # 0.7 L Lymphocytes % 6.3 L Mean Corpuscular Hemoglobin 31.1 Mean Corpuscular Hemoglobin Concent 33.6 Mean Corpuscular Volume 92.4 Mean Platelet Volume 9.9 Monocytes # 1.0 H Monocytes % 9.0 Neutrophils # 9.1 H Neutrophils % 83.4 H Nucleated Red Blood Cells # 0.0 Nucleated Red Blood Cells % 0.0 Platelet Count 196 Potassium Level 4.0 Red Blood Count 3.57 L Red Cell Distribution Width 13.2 Sodium Level 134 L Total Bilirubin 0.2 Total Protein 5.7 L White Blood Count 10.9 H Medications Current Medications Dextrose/Sodium Chloride (D5-1/2ns) 1,000 ml @ 50 mls/hr Q20H IV Last administered on 09/25/16 12:32; Admin Dose 100 MLS/HR; Start 09/23/16 at 13:55 Acetaminophen/ Hydrocodone Bitart ([place] (5/325)) 1 tab Q4H PRN PO PAIN LEVEL 1 -5; Start 09/23/16 at 14:00; Status Future Hold Acetaminophen/ Hydrocodone Bitart ([place] (5/325)) 2 tab Q4H PRN PO PAIN LEVEL 6 -10; Start 09/23/16 at 14:00; Status Future Hold Zolpidem Tartrate (Ambien) 5 mg HS PRN PO INSOMNIA; Start 09/23/16 at 14:00 Prochlorperazine (Compazine) 10 mg Q4H PRN PO NAUSEA AND/OR VOMITING; Start at 14:00 Trimethobenzamide HCl (Tigan) 200 mg Q4H PRN IM NAUSEA AND/OR VOMITING; Start 09/23/16 at 14:00 Ondansetron HCl (Zofran Inj) 4 mg Q6H PRN IV NAUSEA AND/OR VOMITING Last administered on 09/25/16 06:48; Admin Dose 4 MG; Start 09/23/16 at 14:00 Al Hydrox/Mg Hydrox/Simethicone (Mag-Al Plus) 15 ml Q4H PRN PO CONSTIPATION; Start 09/23/16 at 14:00 Docusate Sodium (Colace) 100 mg BID PO Last administered on 09/27/16 09:20; Admin Dose 100 MG; Start 09/24/16 at 09:00 Acetaminophen (Tylenol Tab) 650 mg Q4H PRN PO TEMP GREATER THAN 101F OR MAN; Start 09/23/16 at 14:00 Ascorbic Acid (Vitamin C) 1,000 mg BID PO Last administered on 09/27/16 09:20 ; Admin Dose 1,000 MG; Start 09/24/16 at 09:00 Ferrous Sulfate (Ferrous Sulfate (Ec)) 325 mg TID PO Last administered on 09:20; Admin Dose 325 MG; Start 09/24/16 at 09:00 Ranitidine HCl (Zantac) 150 mg BID PO Last administered on 09/27/16 09:20; Admin Dose 150 MG; Start 09/23/16 at 21:00 Diazepam (Valium) 5 mg Q4H PRN PO MUSCLE SPASMS Last administered on 09/26/16 21:59; Admin Dose 5 MG; Start 09/23/16 at 14:00 Diazepam (Valium) 5 mg Q4H PRN IM MUSCLE SPASMS; Start 09/23/16 at 14:00 Phenol (Cepastat Lozenge) 1 lozenge PRN PRN MT SORE THROAT; Start 09/23/16 at 14:00 Bethanechol Chloride (Urecholine) 25 mg PRN PRN PO UNABLE TO VOID; Start at 14:00 Diphenhydramine HCl (Benadryl) 50 mg Q6H PRN PO PRURITUS; Start 09/23/16 at 14: 00 Hydromorphone HCl (Dilaudid VALUE ANALYST) Q4PCA IV Last administered on 09/26/16 19:17 ; Admin Dose 6 MG; Start 09/23/16 at 14:00 Naloxone HCl (Narcan) 0.2 mg Q2M PRN IV RR 8 BREATHS/MIN OR LESS; Start at 14:00 Amlodipine Besylate (Norvasc) 10 mg DAILY PO Last administered on 09/27/16 09: 19; Admin Dose 10 MG; Start 09/24/16 at 09:00 Citalopram Hydrobromide (Celexa) 60 mg DAILY PO Last administered on 09/27/16 09:19; Admin Dose 60 MG; Start 09/24/16 at 09:00 Metoprolol Tartrate (Lopressor) 25 mg BID PO Last administered on 09/27/16 09: 19; Admin Dose 25 MG; Start 09/23/16 at 21:00 Venlafaxine HCl (Effexor) 75 mg DAILY PO Last administered on 09/27/16 09:20; Admin Dose 75 MG; Start 09/24/16 at 09:00 Lorazepam (Ativan) 0.5 mg BID PRN PO ANXIETY; Start 09/23/16 at 14:30 Salmeterol Xinafoate/ Fluticasone (Advair 250/50 Diskus) 1 inh BID INH Last administered on 09/26/16 21:46; Admin Dose 1 INH; Start 09/24/16 at 21:00 Clonidine (Catapres) 0.1 mg Q6H PRN PO SBP GREATER THAN 160; Start 09/25/16 at 09:00 Polyethylene Glycol (Miralax) 17 gm DAILY PO Last administered on 09/27/16 09: 20; Admin Dose 17 GM; Start 09/26/16 at 09:00 Assessment/Plan Chief Complaint/Hosp Course 76 y/o pmh HTN, HLD, COPD, MDD, chronic constipation s/p L3-L5 laminectomy by Dr. Hernandez 09/23. Course c/b transaminitis now practically resolved. Problems: Additional Assessment/Plan Ortho #DDD s/p L3-L5 laminectomy -pain control per ortho -continue PT -dispo per ortho likely will need SNF for rehab or ARU. Patient lives alone, son now with her mostly but he cant help her, he broke his leg. Cards #HTN -will dc IVF as patient is eating -uptitrate mtp 37.5 bid -norvasc 10 -pain control -clonidine prn GI #transaminitis-unclear etiology, resolved -no need to ctm #constipation -continue bowel regimen Pulm #copd -advair ID #leukocytosis-practically resolved -no need to ctm Psych #MDD -citalopram -effexor Not yet medically cleared for discharge. Will need to better control BP and find placement. ELEANOR ALVES MD Sep 27, 2016 11:25
[2016-09-27] MEDS ORDERED: HYDROCODONE/APAP (5/325) TAB PO PRN ×2 (12:00)
[2016-09-27] MEDS: DIAZEPAM 5 MG TAB PO PRN ×2 (12:07→19:14)
[2016-09-27 20:23] VITALS: BP 169/71; RESP 18
[2016-09-27 22:30] VITALS: BP 141/66; PULSE 77; RESP 17
[2016-09-28] VITALS: BP 134/62; PULSE 64; RESP 18
[2016-09-28] MEDS: DIAZEPAM 5 MG TAB PO PRN (00:18)
[2016-09-28] MEDS: DIAZEPAM 5 MG/ML SYG IM PRN ×2 (03:57→18:12)
[2016-09-28 07:49] VITALS: BP 181/74; RESP 16
--- NOTE | 2016-09-28 08:46 | CONS ---
Date/Time of Note Date/Time of Note DATE: 09/28/16 TIME: 08:39 Assessment/Plan Assessment/Plan Chief Complaint/Hosp Course 1. She is 5 days post op a lumbar spine surgery . she is confused , probably from pain meds . Recommend switch to po pain meds . 2. PT , she will be evaluated for acute rehabilitation unit 3. liver enzymes were elevated and are now coming down . 4. BP is elevated . will add clonidine prn and Valsartan . Problems: Consultation Date/Type/Reason Admit Date/Time Sep 23, 2016 at 05:21 Type of Consultation: medicine Referring Provider: KATERIN HERNANDEZ MD 24 HR Interval Summary Free Text/Dictation She is lethargic , but rouses easily to verbal stimuli . She is confused , probably from pain meds . Constitutional: disoriented Exam/Review of Systems Vital Signs Vitals Vital Signs Date Time Temp Pulse Resp B/P Pulse Ox O2 Delivery O2 Flow Rate FiO2 09/28/16 07:49 98.8 91 16 181/74 100 09/28/16 00:00 Nasal Cannula 2.0 Intake and Output 09/27/16 09/27/16 09/28/16 15:00 23:00 07:00 Intake Total 960 ml 480 ml Balance 960 ml 480 ml Exam Constitutional: frail Respiratory: clear to auscultation, normal air movement Cardiovascular: regular rate and rhythm Gastrointestinal: soft Musculoskeletal: nl extremities to inspection Results Result Diagram: 09/27/16 0418 09/27/16 0418 Medications Medications Current Medications Zolpidem Tartrate (Ambien) 5 mg HS PRN PO INSOMNIA; Start 09/23/16 at 14:00 Prochlorperazine (Compazine) 10 mg Q4H PRN PO NAUSEA AND/OR VOMITING; Start at 14:00 Trimethobenzamide HCl (Tigan) 200 mg Q4H PRN IM NAUSEA AND/OR VOMITING; Start 09/23/16 at 14:00 Ondansetron HCl (Zofran Inj) 4 mg Q6H PRN IV NAUSEA AND/OR VOMITING Last administered on 09/25/16t 06:48; Admin Dose 4 MG; Start 09/23/16 at 14:00 Al Hydrox/Mg Hydrox/Simethicone (Mag-Al Plus) 15 ml Q4H PRN PO CONSTIPATION; Start 09/23/16 at 14:00 Docusate Sodium (Colace) 100 mg BID PO Last administered on 09/27/16 20:59; Admin Dose 100 MG; Start 09/24/16 at 09:00 Acetaminophen (Tylenol Tab) 650 mg Q4H PRN PO TEMP GREATER THAN 101F OR MAN; Start 09/23/16 at 14:00 Ascorbic Acid (Vitamin C) 1,000 mg BID PO Last administered on 09/27/16 20:59 ; Admin Dose 1,000 MG; Start 09/24/16 at 09:00 Ferrous Sulfate (Ferrous Sulfate (Ec)) 325 mg TID PO Last administered on 20:59; Admin Dose 325 MG; Start 09/24/16 at 09:00 Ranitidine HCl (Zantac) 150 mg BID PO Last administered on 09/27/16 20:59; Admin Dose 150 MG; Start 09/23/16 at 21:00 Diazepam (Valium) 5 mg Q4H PRN PO MUSCLE SPASMS Last administered on 09/28/16 00:18; Admin Dose 5 MG; Start 09/23/16 at 14:00 Diazepam (Valium) 5 mg Q4H PRN IM MUSCLE SPASMS Last administered on 09/28/16 03:57; Admin Dose 5 MG; Start 09/23/16 at 14:00 Phenol (Cepastat Lozenge) 1 lozenge PRN PRN MT SORE THROAT; Start 09/23/16 at 14:00 Bethanechol Chloride (Urecholine) 25 mg PRN PRN PO UNABLE TO VOID; Start at 14:00 Diphenhydramine HCl (Benadryl) 50 mg Q6H PRN PO PRURITUS; Start 09/23/16 at 14: 00 Hydromorphone HCl (Dilaudid DIRECTOR BIOLOGICS) Q4PCA IV Last administered on 09/26/16 19:17 ; Admin Dose 6 MG; Start 09/23/16 at 14:00 Naloxone HCl (Narcan) 0.2 mg Q2M PRN IV RR 8 BREATHS/MIN OR LESS; Start at 14:00 Amlodipine Besylate (Norvasc) 10 mg DAILY PO Last administered on 09/27/16 09: 19; Admin Dose 10 MG; Start 09/24/16 at 09:00 Citalopram Hydrobromide (Celexa) 60 mg DAILY PO Last administered on 09/27/16 09:19; Admin Dose 60 MG; Start 09/24/16 at 09:00 Venlafaxine HCl (Effexor) 75 mg DAILY PO Last administered on 09/27/16 09:20; Admin Dose 75 MG; Start 09/24/16 at 09:00 Lorazepam (Ativan) 0.5 mg BID PRN PO ANXIETY; Start 09/23/16 at 14:30 Salmeterol Xinafoate/ Fluticasone (Advair 250/50 Diskus) 1 inh BID INH Last administered on 09/27/16 20:59; Admin Dose 1 INH; Start 09/24/16 at 21:00 Clonidine (Catapres) 0.1 mg Q6H PRN PO SBP GREATER THAN 160; Start 09/25/16 at 09:00 Polyethylene Glycol (Miralax) 17 gm DAILY PO Last administered on 09/27/16 09: 20; Admin Dose 17 GM; Start 09/26/16 at 09:00 Metoprolol Tartrate (Lopressor) 37.5 mg BID PO Last administered on 09/27/16 21:01; Admin Dose 37.5 MG; Start 09/27/16 at 21:00 Acetaminophen/ Hydrocodone Bitart ([place] (5/325)) 1 tab Q4H PRN PO PAIN LEVEL 1 -5; Start 09/27/16 at 12:00 Acetaminophen/ Hydrocodone Bitart ([place] (5/325)) 2 tab Q4H PRN PO PAIN LEVEL 6 -10; Start 09/27/16 at 12:00 KODI RASCON MD Sep 28, 2016 08:46
[2016-09-28] MEDS: ASCORBIC ACID 500 MG TAB PO SCH ×2 (09:32→20:18)
[2016-09-28] MEDS: AMLODIPINE 10 MG TAB PO SCH (09:32)
[2016-09-28] MEDS: METOPROLOL 25 MG TAB PO SCH ×2 (09:32→20:20)
[2016-09-28] MEDS: RANITIDINE 150 MG TAB PO SCH ×2 (09:33→21:24)
[2016-09-28] MEDS: VENLAFAXINE 75 MG TABLET PO SCH (09:33)
[2016-09-28] MEDS: VALSARTAN 80 MG TAB PO SCH (09:33)
[2016-09-28] MEDS: FERROUS SULFATE (EC) 325 MG TAB PO SCH ×3 (09:33→20:18)
[2016-09-28] MEDS: CITALOPRAM 20 MG TAB PO SCH (09:33)
[2016-09-28] MEDS: DOCUSATE SODIUM 100 MG CAP PO SCH ×2 (09:34→20:18)
[2016-09-28] MEDS: SALMETEROL/FLUTICASONE 250/50 INHA INH SCH ×2 (09:34→20:18)
[2016-09-28] MEDS: POLYETHYLENE GLYCOL 17 GM PACKET PO SCH (09:35)
[2016-09-28] MEDS: HYDROmorphONE 0.2 MG/ML PCA IV SCH (09:41)
--- NOTE | 2016-09-28 13:48 | PN ---
Date/Time of Note Date/Time of Note DATE: 09/28/16 TIME: 13:47 Assessment/Plan Lines/Catheters IV Catheter Type (from Nrsg): Peripheral IV [place] in Place (from Nrsg): No Subjective 24 Hr Interval Summary Patient seen with Dr. Tello today. Patient is postop day #5 from lumbar decompression. She is progressing slowly, physical therapy is recommending short-term rehab. Patient is requesting a facility close to her home in [place] and block and case maker is trying to coordinate the. She is still on the [employer]ER and I will discontinue this, we can use [facility] as needed. She has been voiding but has not had a bowel movement yet. She is tolerating diet. Incision is healing well. Exam/Review of Systems Vital Signs Vitals Vital Signs Date Time Temp Pulse Resp B/P Pulse Ox O2 Delivery O2 Flow Rate FiO2 09/28/16 09:48 18 09/28/16 08:30 Nasal Cannula 2.0 09/28/16 07:49 98.8 91 181/74 100 Intake and Output 09/27/16 09/27/16 09/28/16 15:00 23:00 07:00 Intake Total 960 ml 480 ml Balance 960 ml 480 ml Results Result Diagram: 09/27/16 0418 09/27/16 0418 ATRA MESA Sep 28, 2016 13:48
[2016-09-28 19:52] VITALS: BP 173/70; RESP 21
[2016-09-29 02:45] VITALS: BP 153/68; PULSE 71; RESP 18
[2016-09-29] MEDS: DIAZEPAM 5 MG TAB PO PRN ×2 (03:33→07:51)
[2016-09-29] MEDS: ALBUTEROL/IPRATROPIUM (NEB) 3 ML AMP HHN PRN (04:50)
[2016-09-29 08:04] VITALS: BP 176/70; RESP 18
[2016-09-29] MEDS: SALMETEROL/FLUTICASONE 250/50 INHA INH SCH (08:30)
[2016-09-29] MEDS: AMLODIPINE 10 MG TAB PO SCH (08:30)
[2016-09-29] MEDS: POLYETHYLENE GLYCOL 17 GM PACKET PO SCH (08:30)
[2016-09-29] MEDS: METOPROLOL 25 MG TAB PO SCH (08:31)
[2016-09-29] MEDS: FERROUS SULFATE (EC) 325 MG TAB PO SCH ×2 (08:31→13:00)
[2016-09-29] MEDS: CITALOPRAM 20 MG TAB PO SCH (08:32)
[2016-09-29] MEDS: ASCORBIC ACID 500 MG TAB PO SCH (08:32)
[2016-09-29] MEDS: DOCUSATE SODIUM 100 MG CAP PO SCH (08:32)
[2016-09-29] MEDS: VENLAFAXINE 75 MG TABLET PO SCH (08:34)
[2016-09-29] MEDS: RANITIDINE 150 MG TAB PO SCH (08:34)
[2016-09-29] MEDS: VALSARTAN 80 MG TAB PO SCH (08:35)
[2016-09-29 10:00] VITALS: BP 156/71; PULSE 73; RESP 16
--- NOTE | 2016-09-29 13:37 | CONS ---
Date/Time of Note Date/Time of Note DATE: 09/29/16 TIME: 13:32 Assessment/Plan Assessment/Plan Chief Complaint/Hosp Course 1. She is 6 days post op a lumbar spine surgery . she is confused , probably from pain meds . Recommend switch to po pain meds and D/C valium . will try low dose of gabapentin .Her family says that she has had early dementia . 2. PT , she will be evaluated for acute rehabilitation unit 3. liver enzymes were elevated and are now coming down . 4. BP is elevated . will add clonidine prn and Valsartan . Problems: Consultation Date/Type/Reason Admit Date/Time Sep 23, 2016 at 05:21 Type of Consultation: medicine Referring Provider: KATERIN HERNANDEZ MD 24 HR Interval Summary Free Text/Dictation She is lethargic but does rouse easily to verbal stimuli . She is confused and disoriented . She was having some R leg pain earlier and received [place] and Valium . Constitutional: disoriented Exam/Review of Systems Vital Signs Vitals Vital Signs Date Time Temp Pulse Resp B/P Pulse Ox O2 Delivery O2 Flow Rate FiO2 09/29/16 08:30 Nasal Cannula 2.0 09/29/16 08:04 98.4 79 18 176/70 96 Intake and Output 09/28/16 09/28/16 09/29/16 15:00 23:00 07:00 Intake Total 760 ml 450 ml Balance 760 ml 450 ml Exam Psych: confusion Respiratory: clear to auscultation, normal air movement Cardiovascular: regular rate and rhythm Gastrointestinal: soft Musculoskeletal: nl extremities to inspection Results Result Diagram: 09/27/16 0418 09/27/16 0418 Medications Medications Current Medications Zolpidem Tartrate (Ambien) 5 mg HS PRN PO INSOMNIA; Start 09/23/16 at 14:00 Prochlorperazine (Compazine) 10 mg Q4H PRN PO NAUSEA AND/OR VOMITING; Start at 14:00 Trimethobenzamide HCl (Tigan) 200 mg Q4H PRN IM NAUSEA AND/OR VOMITING; Start 09/23/16 at 14:00 Ondansetron HCl (Zofran Inj) 4 mg Q6H PRN IV NAUSEA AND/OR VOMITING Last administered on 09/25/16 06:48; Admin Dose 4 MG; Start 09/23/16 at 14:00 Al Hydrox/Mg Hydrox/Simethicone (Mag-Al Plus) 15 ml Q4H PRN PO CONSTIPATION; Start 09/23/16 at 14:00 Docusate Sodium (Colace) 100 mg BID PO Last administered on 09/29/16 08:32; Admin Dose 100 MG; Start 09/24/16 at 09:00 Acetaminophen (Tylenol Tab) 650 mg Q4H PRN PO TEMP GREATER THAN 101F OR MAN; Start 09/23/16 at 14:00 Ascorbic Acid (Vitamin C) 1,000 mg BID PO Last administered on 09/29/16 08:32 ; Admin Dose 1,000 MG; Start 09/24/16 at 09:00 Ferrous Sulfate (Ferrous Sulfate (Ec)) 325 mg TID PO Last administered on 08:31; Admin Dose 325 MG; Start 09/24/16 at 09:00 Ranitidine HCl (Zantac) 150 mg BID PO Last administered on 09/29/16 08:34; Admin Dose 150 MG; Start 09/23/16 at 21:00 Diazepam (Valium) 5 mg Q4H PRN PO MUSCLE SPASMS Last administered on 09/29/16 07:51; Admin Dose 5 MG; Start 09/23/16 at 14:00 Diazepam (Valium) 5 mg Q4H PRN IM MUSCLE SPASMS Last administered on 09/28/16 18:12; Admin Dose 5 MG; Start 09/23/16 at 14:00 Phenol (Cepastat Lozenge) 1 lozenge PRN PRN MT SORE THROAT; Start 09/23/16 at 14:00 Bethanechol Chloride (Urecholine) 25 mg PRN PRN PO UNABLE TO VOID; Start at 14:00 Diphenhydramine HCl (Benadryl) 50 mg Q6H PRN PO PRURITUS Last administered on 02:07; Admin Dose 50 MG; Start 09/23/16 at 14:00 Hydromorphone HCl (Dilaudid PICK REMOVER) Q4PCA IV Last administered on 09/28/16 09:41 ; Admin Dose 6 MG; Start 09/23/16 at 14:00 Naloxone HCl (Narcan) 0.2 mg Q2M PRN IV RR 8 BREATHS/MIN OR LESS; Start at 14:00 Amlodipine Besylate (Norvasc) 10 mg DAILY PO Last administered on 09/29/16 08: 30; Admin Dose 10 MG; Start 09/24/16 at 09:00 Citalopram Hydrobromide (Celexa) 60 mg DAILY PO Last administered on 09/29/16 08:32; Admin Dose 60 MG; Start 09/24/16 at 09:00 Venlafaxine HCl (Effexor) 75 mg DAILY PO Last administered on 09/29/16 08:34; Admin Dose 75 MG; Start 09/24/16 at 09:00 Lorazepam (Ativan) 0.5 mg BID PRN PO ANXIETY; Start 09/23/16 at 14:30 Salmeterol Xinafoate/ Fluticasone (Advair 250/50 Diskus) 1 inh BID INH Last administered on 09/29/16 08:30; Admin Dose 1 INH; Start 09/24/16 at 21:00 Clonidine (Catapres) 0.1 mg Q6H PRN PO SBP GREATER THAN 160; Start 09/25/16 at 09:00 Polyethylene Glycol (Miralax) 17 gm DAILY PO Last administered on 09/29/16 08: 30; Admin Dose 17 GM; Start 09/26/16 at 09:00 Metoprolol Tartrate (Lopressor) 37.5 mg BID PO Last administered on 09/29/16 08:31; Admin Dose 37.5 MG; Start 09/27/16 at 21:00 Acetaminophen/ Hydrocodone Bitart ([place] (5/325)) 1 tab Q4H PRN PO PAIN LEVEL 1 -5 Last administered on 09/28/16 21:29; Admin Dose 1 TAB; Start 09/27/16 at 12: 00 Acetaminophen/ Hydrocodone Bitart ([place] (5/325)) 2 tab Q4H PRN PO PAIN LEVEL 6 -10 Last administered on 09/29/16 09:06; Admin Dose 2 TAB; Start 09/27/16 at 12 :00 Valsartan (Diovan) 80 mg DAILY PO Last administered on 09/29/16 08:35; Admin Dose 80 MG; Start 09/28/16 at 09:00 KODI RASCON MD Sep 29, 2016 13:37
[2016-09-29] MEDS ORDERED: GABAPENTIN 100 MG CAP PO SCH (21:00)
[2016-09-30] MEDS ORDERED: CITALOPRAM 20 MG TAB PO SCH (09:00)
== END 2016-09-29 17:45 | DRG 517 ==
LOC: MS1 05:21 → UNDOADMIN 05:21 → SDS 05:21 → REC 05:21 → EDSTATUS 07:30 → UNDOFXSDCSVC 15:30 → SDS 15:30 → MS1 15:30 → EDSTATUS 09-27 07:30 → SDS 09-27 10:45 → MS1 09-27 10:45
PROVIDERS: ADMIT Specialist; ATTEND Specialist
PROC: 01NB0ZZ Release Lumbar Nerve, Open Approach (ICD-10-PCS; principal; 2016-09-23 07:30)
DX: M48.06 Spinal stenosis, lumbar region (principal); J44.9 Chronic obstructive pulmonary disease, unspecified; I10 Essential (primary) hypertension; E78.5 Hyperlipidemia, unspecified; Z87.891 Personal history of nicotine dependence; Z83.3 Family history of diabetes mellitus; Z80.0 Family history of malignant neoplasm of digestive organs; Z95.0 Presence of cardiac pacemaker; F33.42 Major depressive disorder, recurrent, in full remission; K59.00 Constipation, unspecified
CPT/HCPCS: 72114; 80053; 85025; 86850; 86900; 86901; 87086; 94640; 94664; 97530; C9290; J0360; J0690; J1100; J1170; J1644; J2250; J2405; J2710; J3010; J3360; J7042; J7120

== ENCOUNTER 2016-09-29 17:02 | Inpatient (IN) | payer MEDICARE, OTHER ==
[~2016-09-29] VITALS: Ht 162.6 cm; Wt 69.0 kg
[~2016-09-29 17:02] MED LIST: AMLO-147 PO; CITA-104 PO; IBUP200C11 PO; LORA1TAB PO; METO25TA4 PO; VENL75TA PO
[2016-09-29 18:45] VITALS: BP 131/61; PULSE 84; RESP 18
[2016-09-29] MEDS ORDERED: MAGNESIUM HYDROXIDE 30ML CUP PO PRN (19:30)
[2016-09-29] MEDS ORDERED: AL HYDROX/MG HYDROX/SIMETH 30 ML CUP PO PRN (19:30)
[2016-09-29] MEDS ORDERED: ACETAMINOPHEN 325 MG TAB PO PRN ×2 (19:30)
[2016-09-29] MEDS ORDERED: PROCHLORPERAZINE 10 MG TAB PO PRN (19:30)
[2016-09-29] MEDS ORDERED: ALBUTEROL/IPRATROPIUM (NEB) 3 ML AMP HHN PRN (19:30)
[2016-09-29] MEDS ORDERED: ZOLPIDEM 5 MG TAB PO PRN (19:30)
[2016-09-29] MEDS ORDERED: NALOXONE (0.4 MG/ML) INJ IV PRN (19:30)
[2016-09-29 19:32] LABS: ADD UMIC NO; URINE BILIRUBIN (Dip) NEGATIVE (NEGATIVE); URINE BLOOD (Dip) NEGATIVE (NEGATIVE); URINE COLOR LT. YELLOW (YELLOW); URINE GLUCOSE (Dip) NEGATIVE (NEGATIVE); URINE KETONES (Dip) NEGATIVE (NEGATIVE); URINE LEUKOCYTE ESTERASE (Dip) NEGATIVE (NEGATIVE); URINE NITRITE (Dip) NEGATIVE (NEGATIVE); URINE TOTAL PROTEIN (Dip) NEGATIVE (NEGATIVE); URINE UROBILINOGEN (Dip) 4.0 E.U./dL (0.1-1.0)
[2016-09-29] MEDS: DOCUSATE SODIUM 100 MG CAP PO SCH (20:55)
[2016-09-29] MEDS: FERROUS SULFATE (EC) 325 MG TAB PO SCH (20:55)
[2016-09-29] MEDS: SALMETEROL/FLUTICASONE 250/50 INHA INH SCH (20:55)
[2016-09-29] MEDS: RANITIDINE 150 MG TAB PO SCH (20:55)
[2016-09-29] MEDS: SENNA TAB PO SCH (20:55)
[2016-09-29] MEDS: GABAPENTIN 100 MG CAP PO SCH (20:55)
[2016-09-29] MEDS: LORAZEPAM 0.5 MG TAB PO PRN (20:56)
[2016-09-29] MEDS: HYDROCODONE/APAP (5/325) TAB PO PRN (20:56)
[2016-09-29] MEDS: LACTULOSE 30ML CUP PO PRN (20:56)
[2016-09-29] MEDS: METOPROLOL 25 MG TAB PO SCH (20:59)
[2016-09-29] MEDS ORDERED: DOCUSATE SODIUM 100 MG CAP PO SCH (21:00)
[2016-09-29 21:14] VITALS: BP 146/67; RESP 19
[2016-09-29 23:30] VITALS: BP 144/78; PULSE 69; RESP 18
[2016-09-30] MEDS: BISACODYL 10 MG SUPP PR PRN (06:32)
[2016-09-30 07:30] VITALS: BP 166/73; RESP 18
[2016-09-30 07:48] LABS: ADD SCAN DIFF NO
[2016-09-30 07:53] LABS: BASOPHILS % 0.4 % (0.0-2.0); EOSINOPHILS # 0.3 10^3/ul (0.0-0.5); EOSINOPHILS % 3.9 % (0.0-7.0); HEMATOCRIT 35.1 % (37.0-47.0); HEMOGLOBIN 11.7 g/dl (12.0-16.0); LYMPHOCYTES # 1.4 10^3/ul (0.8-2.9); LYMPHOCYTES % 17.1 % (15.0-51.0); MEAN CORPUSCULAR HEMOGLOBIN 30.6 pg (29.0-33.0); MEAN CORPUSCULAR HGB CONC 33.3 g/dl (32.0-37.0); MEAN CORPUSCULAR VOLUME 91.9 fl (82.0-101.0); MEAN PLATELET VOLUME 9.4 fl (7.4-10.4); MONOCYTE # 0.9 10^3/ul (0.3-0.9); MONOCYTES % 11.1 % (0.0-11.0); NEUTROPHIL # 5.5 10^3/ul (1.6-7.5); NEUTROPHILS % 66.9 % (39.0-77.0); PLATELET COUNT 264 10^3/UL (140-415); RED BLOOD COUNT 3.82 10^6/ul (4.20-5.40); RED CELL DISTRIBUTION WIDTH 13.2 % (11.5-14.5); WHITE BLOOD COUNT 8.2 10^3/ul (4.8-10.8)
[2016-09-30 08:08] LABS: ALBUMIN 3.2 g/dl (3.3-4.9); POTASSIUM 4.3 mmol/L (3.5-5.1)
[2016-09-30 08:10] LABS: CREATININE 0.66 mg/dl (0.44-1.00)
[2016-09-30 08:11] LABS: ALBUMIN/GLOBULIN RATIO 0.88; BILIRUBIN,INDIRECT 0.1 mg/dl (0-1.1); BILIRUBIN,TOTAL 0.1 mg/dl (0.2-1.3); TOTAL PROTEIN 6.8 g/dl (6.1-8.1)
[2016-09-30] MEDS: CITALOPRAM 20 MG TAB PO SCH (08:14)
[2016-09-30] MEDS: VALSARTAN 80 MG TAB PO SCH (08:14)
[2016-09-30] MEDS: SALMETEROL/FLUTICASONE 250/50 INHA INH SCH ×2 (08:14→20:43)
[2016-09-30] MEDS: GABAPENTIN 100 MG CAP PO SCH ×3 (08:14→20:44)
[2016-09-30] MEDS: RANITIDINE 150 MG TAB PO SCH ×2 (08:14→20:43)
[2016-09-30] MEDS: HYDROCODONE/APAP (5/325) TAB PO PRN ×3 (08:15→21:00)
[2016-09-30] MEDS: FERROUS SULFATE (EC) 325 MG TAB PO SCH ×3 (08:16→20:44)
[2016-09-30] MEDS: AMLODIPINE 10 MG TAB PO SCH (08:16)
[2016-09-30] MEDS: DOCUSATE SODIUM 100 MG CAP PO SCH ×2 (08:16→20:44)
[2016-09-30] MEDS: VENLAFAXINE 75 MG TABLET PO SCH (08:16)
[2016-09-30] MEDS: METOPROLOL 25 MG TAB PO SCH ×2 (08:16→20:47)
[2016-09-30 08:20] LABS: CALCIUM 9.4 mg/dl (8.4-10.2)
[2016-09-30] MEDS ORDERED: POLYETHYLENE GLYCOL 17 GM PACKET PO SCH (09:00)
--- NOTE | 2016-09-30 12:51 | CONS ---
DATE OF ADMISSION: 09/29/2016 DATE OF CONSULTATION: 09/30/2016 REHABILITATION IMPAIRMENT CATEGORY: Spinal stenosis with radiculopathy status post decompressive la minectomy. ACTIVE COMORBIDITIES: 1. Acute pain syndrome. 2. Chronic obstructive pulmonary disease. 3. Hypertension. 4. Hyperlipidemia. 5. Constipation. 6. Impairments in self-care and mobility. HISTORY OF PRESENT ILLNESS: The patient is a pleasant 76-year-old female with a history of COPD, hy pertension, hyperlipidemia, who was admitted with severe radiating low back pain despite conservativ e measures. The patient underwent a decompressive laminectomy for her spinal stenosis and radiculop athy on 09/23/2016. Her hospital course has been notable for constipation, in addition to transamin itis, hypertension and leukocytosis. The patient has been noted to have a significant impairment in self-care and mobility as compared to baseline, and has been cleared to transfer to the rehabilitat ion unit for comprehensive interdisciplinary rehab care. FUNCTIONAL HISTORY: Prior to the recent events, she was independent in self-care tasks and mobility . Currently, she requires maximal assist for self-care and mobility tasks. SOCIAL HISTORY: The patient reports living at home with family and hopes to return there upon disch arge. PAST MEDICAL HISTORY: 1. COPD. 2. Hypertension. 3. Hyperlipidemia. 4. Chronic constipation. CURRENT MEDICATIONS: 1. Albuterol inhaler. 2. Norvasc 10 mg p.o. daily. 3. Celexa 20 mg p.o. daily. 4. Catapres p.r.n. 5. Colace 100 mg b.i.d. 6. Ferrous sulfate 325 p.o. t.i.d. 7. Neurontin 100 mg p.o. t.i.d. 8. [place] p.r.n. 9. Ativan p.r.n. 10. Lopressor 37.5 b.i.d. 11. MiraLax. 12. Zantac 150 b.i.d. 13. Advair inhaler. 14. Diovan 80 mg p.o. daily. 15. Effexor 75 mg p.o. daily. 16. Ambien p.r.n. ALLERGIES: Vitamin D. PHYSICAL EXAMINATION: VITAL SIGNS: The patient is currently afebrile with stable vital signs. HEENT: The extraocular motions are intact. Oropharynx clear. NECK: Supple. LUNGS: Clear anteriorly. CARDIAC: S1, S2. ABDOMEN: Soft, nontender, positive bowel sounds. NEUROLOGIC: She is awake and alert and oriented x3. She can follow simple 1-step commands. Crania l nerves are grossly intact. She has good strength in bilateral upper extremity, antigravity streng th in bilateral lower extremity. Impaired dynamic balance. PLAN: The patient has been admitted for comprehensive interdisciplinary acute rehab and is anticipa nehemiah to tolerate 3 hours of daily therapy in divided doses for at least 5/7 days a week. The treatme nt plan will include: 1. Physical therapy to focus on bed mobility, transfers, and household ambulation with the goal of having the patient reach standby assist level. 2. Occupational therapy to focus on hygiene, grooming, dressing, bathing, and toileting activities with the goal of having the patient reach standby assist level. 3. Rehabilitation nursing for carryover of therapeutic interventions, the goal of continent of robert l and bladder, and the goal of pain adequately managed on oral medications. ESTIMATED LENGTH OF STAY: 10 days. DISPOSITION GOAL: Home. REHABILITATION BARRIER: Pain. INTERVENTION FOR BARRIER: Comprehensive interdisciplinary approach. I acknowledge that I performed a full physical examination on this patient within 24 hours of admiss ion to the rehabilitation unit. I believe the patient is a good candidate for comprehensive interdi sciplinary rehab care and is anticipated to make reasonable goals in a reasonable period of time as outlined above. Dictated By: ROSLYN STARK/SONYA Conf#: [id number] DID#: [id number]
--- NOTE | 2016-09-30 13:52 | CONS ---
Date/Time of Note Date/Time of Note DATE: 09/30/16 TIME: 13:45 Assessment/Plan Assessment/Plan Chief Complaint/Hosp Course 1. she is post op a lumbar spine surgery , 09/23/16, for spinal stenosis and radiculopathy . Continue current medication and PT . 2. confusion/disorientation is resolving , due to medication and probably some underlying cognitive impairment . 3. HTN , 4. COPD 5. hyperlipidemia 6. chronic constipation Problems: Consultation Date/Type/Reason Admit Date/Time Sep 29, 2016 at 18:18 Initial Consult Date 24 HR Interval Summary Free Text/Dictation She is awake and more lucid today . Constitutional: improved, no complaints Exam/Review of Systems Vital Signs Vitals Vital Signs Date Time Temp Pulse Resp B/P Pulse Ox O2 Delivery O2 Flow Rate FiO2 09/30/16 07:30 98.1 72 18 166/73 97 09/30/16 05:48 21 09/29/16 23:30 Room Air Intake and Output 09/29/16 09/29/16 09/30/16 15:00 23:00 07:00 Intake Total 1300 ml Balance 1300 ml Exam Constitutional: alert, oriented, well developed Psych: no complaints Respiratory: clear to auscultation, normal air movement Cardiovascular: nl pulses, regular rate and rhythm Gastrointestinal: soft Musculoskeletal: nl extremities to inspection Results Result Diagram: 09/30/16 0709 09/30/16 0709 Results 24 hrs Laboratory Tests Test 09/29/16 19:00 09/30/16 07:09 Urine Bilirubin NEGATIVE Urine Clarity CLEAR Urine Color LT. YELLOW Urine Glucose NEGATIVE Urine Hemoglobin NEGATIVE Urine Ketones NEGATIVE Urine Leukocyte Esterase NEGATIVE Urine Nitrite NEGATIVE Urine Specific [place] <=1.005 L Urine Total Protein NEGATIVE Urine Urobilinogen 4.0 E.U./dL H Urine pH 7.0 Alanine Aminotransferase (ALT/SGPT) 41 Albumin 3.2 L Albumin/Globulin Ratio 0.88 Alkaline Phosphatase 166 H Anion Gap 11 Aspartate Amino Transf (AST/SGOT) 30 Basophils # 0.0 Basophils % 0.4 Blood Urea Nitrogen 15 Calcium Level 9.4 Carbon Dioxide Level 38 H Chloride Level 91 L Creatinine 0.66 Direct Bilirubin 0.00 Eosinophils # 0.3 Eosinophils % 3.9 Globulin 3.60 H Glucose Level 94 Hematocrit 35.1 L Hemoglobin 11.7 L Indirect Bilirubin 0.1 Lymphocytes # 1.4 Lymphocytes % 17.1 Mean Corpuscular Hemoglobin 30.6 Mean Corpuscular Hemoglobin Concent 33.3 Mean Corpuscular Volume 91.9 Mean Platelet Volume 9.4 Monocytes # 0.9 Monocytes % 11.1 H Neutrophils # 5.5 Neutrophils % 66.9 Nucleated Red Blood Cells # 0.0 Nucleated Red Blood Cells % 0.0 Platelet Count 264 # Potassium Level 4.3 Red Blood Count 3.82 L Red Cell Distribution Width 13.2 Sodium Level 136 Total Bilirubin 0.1 L Total Protein 6.8 White Blood Count 8.2 # Medications Medications Current Medications Acetaminophen (Tylenol Tab) 650 mg Q4H PRN PO TEMP GREATER THAN 101F OR MAN; Start 09/29/16 at 19:30 Al Hydrox/Mg Hydrox/Simethicone (Mag-Al Plus) 15 ml Q4H PRN PO CONSTIPATION; Start 09/29/16 at 19:30 Amlodipine Besylate (Norvasc) 10 mg DAILY PO Last administered on 09/30/16 08: 16; Admin Dose 10 MG; Start 09/30/16 at 09:00 Citalopram Hydrobromide (Celexa) 20 mg DAILY PO Last administered on 09/30/16 08:14; Admin Dose 20 MG; Start 09/30/16 at 09:00 Clonidine (Catapres) 0.1 mg Q6H PRN PO SBP GREATER THAN 160; Start 09/29/16 at 19:30 Docusate Sodium (Colace) 100 mg BID PO Last administered on 09/30/16 08:16; Admin Dose 100 MG; Start 09/29/16 at 21:00 Ferrous Sulfate (Ferrous Sulfate (Ec)) 325 mg TID PO Last administered on 12:14; Admin Dose 325 MG; Start 09/29/16 at 21:00 Gabapentin (Neurontin) 100 mg TID PO Last administered on 09/30/16 12:14; Admin Dose 100 MG; Start 09/29/16 at 21:00 Acetaminophen/ Hydrocodone Bitart ([place] (5/325)) 1 tab Q4H PRN PO PAIN LEVEL 1 -5; Start 09/29/16 at 19:30 Acetaminophen/ Hydrocodone Bitart ([place] (5/325)) 2 tab Q4H PRN PO PAIN LEVEL 6 -10 Last administered on 09/30/16 08:15; Admin Dose 2 TAB; Start 09/29/16 at 19: 30 Lorazepam (Ativan) 0.5 mg BID PRN PO ANXIETY Last administered on 09/29/16 20: 56; Admin Dose 0.5 MG; Start 09/29/16 at 19:30 Metoprolol Tartrate (Lopressor) 37.5 mg BID PO Last administered on 09/30/16 08 :16; Admin Dose 37.5 MG; Start 09/29/16 at 21:00 Naloxone HCl (Narcan) 0.2 mg Q2M PRN IV RR 8 BREATHS/MIN OR LESS; Start at 19:30 Polyethylene Glycol (Miralax) 17 gm DAILY PRN PO CONSTIPATION; Start 09/29/16 at 19:30 Ranitidine HCl (Zantac) 150 mg BID PO Last administered on 09/30/16 08:14; Admin Dose 150 MG; Start 09/29/16 at 21:00 Salmeterol Xinafoate/ Fluticasone (Advair 250/50 Diskus) 1 inh BID INH Last administered on 09/30/16 08:14; Admin Dose 1 INH; Start 09/29/16 at 21:00 Valsartan (Diovan) 80 mg DAILY PO Last administered on 09/30/16 08:14; Admin Dose 80 MG; Start 09/30/16 at 09:00 Venlafaxine HCl (Effexor) 75 mg DAILY PO Last administered on 09/30/16 08:16; Admin Dose 75 MG; Start 09/30/16 at 09:00 Zolpidem Tartrate (Ambien) 5 mg HS PRN PO INSOMNIA; Start 09/29/16 at 19:30 Senna (Senokot) 1 tab HS PO Last administered on 09/29/16 20:55; Admin Dose 1 TAB; Start 09/29/16 at 21:00 Acetaminophen (Tylenol Tab) 650 mg Q4H PRN PO PAIN; Start 09/29/16 at 19:30 Bisacodyl (Dulcolax Supp) 10 mg DAILY PRN [place] CONSTIPATION Last administered on 09/30/16 06:32; Admin Dose 10 MG; Start 09/29/16 at 19:30 Magnesium Hydroxide (Milk Of Mag) 30 ml BID PRN PO CONSTIPATION; Start at 19:30 Lactulose (Enulose) 20 gm DAILY PRN PO CONSTIPATION Last administered on t 20:56; Admin Dose 20 GM; Start 09/29/16 at 19:30 Senna (Senokot) 1 tab QHS PO ; Start 09/30/16 at 21:00 KODI RASCON MD Sep 30, 2016 13:52
[2016-09-30 20:00] VITALS: BP 119/59; RESP 18
[2016-09-30] MEDS: LORAZEPAM 0.5 MG TAB PO PRN (20:44)
[2016-09-30] MEDS: SENNA TAB PO SCH ×2 (20:44→20:58)
[2016-10-01 08:00] VITALS: BP 130/88; PULSE 88; RESP 18
[2016-10-01] MEDS: SALMETEROL/FLUTICASONE 250/50 INHA INH SCH ×2 (09:36→21:08)
[2016-10-01] MEDS: VENLAFAXINE 75 MG TABLET PO SCH (09:36)
[2016-10-01] MEDS: HYDROCODONE/APAP (5/325) TAB PO PRN ×3 (09:37→19:29)
[2016-10-01] MEDS: METOPROLOL 25 MG TAB PO SCH ×2 (09:37→21:09)
[2016-10-01] MEDS: FERROUS SULFATE (EC) 325 MG TAB PO SCH ×3 (09:38→21:10)
[2016-10-01] MEDS: GABAPENTIN 100 MG CAP PO SCH ×3 (09:38→21:09)
[2016-10-01] MEDS: RANITIDINE 150 MG TAB PO SCH ×2 (09:38→21:10)
[2016-10-01] MEDS: VALSARTAN 80 MG TAB PO SCH (09:38)
[2016-10-01] MEDS: DOCUSATE SODIUM 100 MG CAP PO SCH ×2 (09:38→21:10)
[2016-10-01] MEDS: AMLODIPINE 10 MG TAB PO SCH (09:39)
[2016-10-01] MEDS: CITALOPRAM 20 MG TAB PO SCH (09:53)
--- NOTE | 2016-10-01 12:21 | CONS ---
Date/Time of Note Date/Time of Note DATE: 10/01/16 TIME: 12:20 Consult Date/Type/Reason Admit Date/Time Sep 29, 2016 at 18:18 Initial Consult Date Subjective Results with bowel program Objective pulm-cta abd-soft mod assist 30 feet Vital Signs Date Time Temp Pulse Resp B/P Pulse Ox O2 Delivery O2 Flow Rate FiO2 09/30/16 20:00 98.3 73 18 119/59 94 09/30/16 05:48 21 09/29/16 23:30 Room Air Intake and Output 09/30/16 09/30/16 10/01/16 15:00 23:00 07:00 Intake Total 1340 ml 280 ml Output Total 1000 ml Balance 340 ml 280 ml Results/Medications Result Diagram: 09/30/16 0709 09/30/16 0709 Medications Current Medications Acetaminophen (Tylenol Tab) 650 mg Q4H PRN PO TEMP GREATER THAN 101F OR MAN; Start 09/29/16 at 19:30 Al Hydrox/Mg Hydrox/Simethicone (Mag-Al Plus) 15 ml Q4H PRN PO CONSTIPATION; Start 09/29/16 at 19:30 Amlodipine Besylate (Norvasc) 10 mg DAILY PO Last administered on 10/01/16 09: 39; Admin Dose 10 MG; Start 09/30/16 at 09:00 Citalopram Hydrobromide (Celexa) 20 mg DAILY PO Last administered on 10/01/16 09:53; Admin Dose 20 MG; Start 09/30/16 at 09:00 Clonidine (Catapres) 0.1 mg Q6H PRN PO SBP GREATER THAN 160; Start 09/29/16 at 19:30 Docusate Sodium (Colace) 100 mg BID PO Last administered on 10/01/16 09:38; Admin Dose 100 MG; Start 09/29/16 at 21:00 Ferrous Sulfate (Ferrous Sulfate (Ec)) 325 mg TID PO Last administered on 09:38; Admin Dose 325 MG; Start 09/29/16 at 21:00 Gabapentin (Neurontin) 100 mg TID PO Last administered on 10/01/16 09:38; Admin Dose 100 MG; Start 09/29/16 at 21:00 Acetaminophen/ Hydrocodone Bitart ([place] (5/325)) 1 tab Q4H PRN PO PAIN LEVEL 1 -5 Last administered on 10/01/16 09:37; Admin Dose 1 TAB; Start 09/29/16 at 19: 30 Acetaminophen/ Hydrocodone Bitart ([place] (5/325)) 2 tab Q4H PRN PO PAIN LEVEL 6 -10 Last administered on 09/30/16 21:00; Admin Dose 2 TAB; Start 09/29/16 at 19: 30 Lorazepam (Ativan) 0.5 mg BID PRN PO ANXIETY Last administered on 09/30/16 20: 44; Admin Dose 0.5 MG; Start 09/29/16 at 19:30 Metoprolol Tartrate (Lopressor) 37.5 mg BID PO Last administered on 10/01/16 09 :37; Admin Dose 37.5 MG; Start 09/29/16 at 21:00 Naloxone HCl (Narcan) 0.2 mg Q2M PRN IV RR 8 BREATHS/MIN OR LESS; Start at 19:30 Polyethylene Glycol (Miralax) 17 gm DAILY PRN PO CONSTIPATION; Start 09/29/16 at 19:30 Ranitidine HCl (Zantac) 150 mg BID PO Last administered on 10/01/16 09:38; Admin Dose 150 MG; Start 09/29/16 at 21:00 Salmeterol Xinafoate/ Fluticasone (Advair 250/50 Diskus) 1 inh BID INH Last administered on 10/01/16 09:36; Admin Dose 1 INH; Start 09/29/16 at 21:00 Valsartan (Diovan) 80 mg DAILY PO Last administered on 10/01/16 09:38; Admin Dose 80 MG; Start 09/30/16 at 09:00 Venlafaxine HCl (Effexor) 75 mg DAILY PO Last administered on 10/01/16 09:36; Admin Dose 75 MG; Start 09/30/16 at 09:00 Zolpidem Tartrate (Ambien) 5 mg HS PRN PO INSOMNIA; Start 09/29/16 at 19:30 Senna (Senokot) 1 tab HS PO Last administered on 09/30/16 20:44; Admin Dose 1 TAB; Start 09/29/16 at 21:00 Acetaminophen (Tylenol Tab) 650 mg Q4H PRN PO PAIN; Start 09/29/16 at 19:30 Bisacodyl (Dulcolax Supp) 10 mg DAILY PRN [place] CONSTIPATION Last administered on 09/30/16 06:32; Admin Dose 10 MG; Start 09/29/16 at 19:30 Magnesium Hydroxide (Milk Of Mag) 30 ml BID PRN PO CONSTIPATION Last administered on 09/30/16 20:43; Admin Dose 30 ML; Start 09/29/16 at 19:30 Lactulose (Enulose) 20 gm DAILY PRN PO CONSTIPATION Last administered on 20:56; Admin Dose 20 GM; Start 09/29/16 at 19:30 Senna (Senokot) 1 tab QHS PO Last administered on 09/30/16 20:58; Admin Dose 1 TAB; Start 09/30/16 at 21:00 Assessment/Plan Additional Assessment/Plan Rehab- Spinal stenosis with radiculopathy status post decompressive laminectomy. Tolerating rehab program well Acute pain syndrome-under control. Chronic obstructive pulmonary disease. Hypertension. Hyperlipidemia. Constipation-results with program ROSLYN SEVILLA MD Oct 01, 2016 12:21
--- NOTE | 2016-10-01 13:16 | CONS ---
Date/Time of Note Date/Time of Note DATE: 10/01/16 TIME: 13:13 Assessment/Plan Assessment/Plan Chief Complaint/Hosp Course 1. she is post op a lumbar spine surgery , 09/23/16, for spinal stenosis and radiculopathy . Continue current medication and PT . 2. confusion/disorientation is resolving , due to medication and probably some underlying cognitive impairment . 3. HTN , 4. COPD 5. hyperlipidemia 6. chronic constipation 7. rash on back , contact dermatitis , will apply hydrocortisone cream Problems: Consultation Date/Type/Reason Admit Date/Time Sep 29, 2016 at 18:18 24 HR Interval Summary Free Text/Dictation she has a rash on her back that is itchy . Exam/Review of Systems Vital Signs Vitals Vital Signs Date Time Temp Pulse Resp B/P Pulse Ox O2 Delivery O2 Flow Rate FiO2 09/30/16 20:00 98.3 73 18 119/59 94 09/30/16 05:48 21 09/29/16 23:30 Room Air Intake and Output 09/30/16 09/30/16 10/01/16 15:00 23:00 07:00 Intake Total 1340 ml 280 ml Output Total 1000 ml Balance 340 ml 280 ml Exam Constitutional: alert, oriented, well developed Respiratory: clear to auscultation, normal air movement Cardiovascular: regular rate and rhythm Gastrointestinal: soft Musculoskeletal: nl extremities to inspection Results Result Diagram: 09/30/16 0709 09/30/16 0709 Medications Medications Current Medications Acetaminophen (Tylenol Tab) 650 mg Q4H PRN PO TEMP GREATER THAN 101F OR MAN; Start 09/29/16 at 19:30 Al Hydrox/Mg Hydrox/Simethicone (Mag-Al Plus) 15 ml Q4H PRN PO CONSTIPATION; Start 09/29/16 at 19:30 Amlodipine Besylate (Norvasc) 10 mg DAILY PO Last administered on 10/01/16 09: 39; Admin Dose 10 MG; Start 09/30/16 at 09:00 Citalopram Hydrobromide (Celexa) 20 mg DAILY PO Last administered on 10/01/16 09:53; Admin Dose 20 MG; Start 09/30/16 at 09:00 Clonidine (Catapres) 0.1 mg Q6H PRN PO SBP GREATER THAN 160; Start 09/29/16 at 19:30 Docusate Sodium (Colace) 100 mg BID PO Last administered on 10/01/16 09:38; Admin Dose 100 MG; Start 09/29/16 at 21:00 Ferrous Sulfate (Ferrous Sulfate (Ec)) 325 mg TID PO Last administered on 09:38; Admin Dose 325 MG; Start 09/29/16 at 21:00 Gabapentin (Neurontin) 100 mg TID PO Last administered on 10/01/16 09:38; Admin Dose 100 MG; Start 09/29/16 at 21:00 Acetaminophen/ Hydrocodone Bitart ([place] (5/325)) 1 tab Q4H PRN PO PAIN LEVEL 1 -5 Last administered on 10/01/16 09:37; Admin Dose 1 TAB; Start 09/29/16 at 19: 30 Acetaminophen/ Hydrocodone Bitart ([place] (5/325)) 2 tab Q4H PRN PO PAIN LEVEL 6 -10 Last administered on 09/30/16 21:00; Admin Dose 2 TAB; Start 09/29/16 at 19: 30 Lorazepam (Ativan) 0.5 mg BID PRN PO ANXIETY Last administered on 09/30/16 20: 44; Admin Dose 0.5 MG; Start 09/29/16 at 19:30 Metoprolol Tartrate (Lopressor) 37.5 mg BID PO Last administered on 10/01/16 09 :37; Admin Dose 37.5 MG; Start 09/29/16 at 21:00 Naloxone HCl (Narcan) 0.2 mg Q2M PRN IV RR 8 BREATHS/MIN OR LESS; Start at 19:30 Polyethylene Glycol (Miralax) 17 gm DAILY PRN PO CONSTIPATION; Start 09/29/16 at 19:30 Ranitidine HCl (Zantac) 150 mg BID PO Last administered on 10/01/16 09:38; Admin Dose 150 MG; Start 09/29/16 at 21:00 Salmeterol Xinafoate/ Fluticasone (Advair 250/50 Diskus) 1 inh BID INH Last administered on 10/01/16 09:36; Admin Dose 1 INH; Start 09/29/16 at 21:00 Valsartan (Diovan) 80 mg DAILY PO Last administered on 10/01/16 09:38; Admin Dose 80 MG; Start 09/30/16 at 09:00 Venlafaxine HCl (Effexor) 75 mg DAILY PO Last administered on 10/01/16 09:36; Admin Dose 75 MG; Start 09/30/16 at 09:00 Zolpidem Tartrate (Ambien) 5 mg HS PRN PO INSOMNIA; Start 09/29/16 at 19:30 Senna (Senokot) 1 tab HS PO Last administered on 09/30/16 20:44; Admin Dose 1 TAB; Start 09/29/16 at 21:00 Acetaminophen (Tylenol Tab) 650 mg Q4H PRN PO PAIN; Start 09/29/16 at 19:30 Bisacodyl (Dulcolax Supp) 10 mg DAILY PRN [place] CONSTIPATION Last administered on 09/30/16 06:32; Admin Dose 10 MG; Start 09/29/16 at 19:30 Magnesium Hydroxide (Milk Of Mag) 30 ml BID PRN PO CONSTIPATION Last administered on 09/30/16 20:43; Admin Dose 30 ML; Start 09/29/16 at 19:30 Lactulose (Enulose) 20 gm DAILY PRN PO CONSTIPATION Last administered on 20:56; Admin Dose 20 GM; Start 09/29/16 at 19:30 Senna (Senokot) 1 tab QHS PO Last administered on 09/30/16 20:58; Admin Dose 1 TAB; Start 09/30/16 at 21:00 KODI RASCON MD Oct 01, 2016 13:16
[2016-10-01 16:18] VITALS: BP 163/80; RESP 14
[2016-10-01 20:01] VITALS: BP 128/59; RESP 19
[2016-10-01] MEDS: HYDROCORTISONE 2.5% 20 GM CR TOP SCH (21:00)
[2016-10-01] MEDS: POLYETHYLENE GLYCOL 17 GM PACKET PO PRN (21:08)
[2016-10-01] MEDS: LACTULOSE 30ML CUP PO PRN (21:08)
[2016-10-01] MEDS: SENNA TAB PO SCH ×2 (21:09→21:10)
[2016-10-02] MEDS: HYDROCODONE/APAP (5/325) TAB PO PRN ×3 (06:25→23:16)
[2016-10-02] MEDS: VENLAFAXINE 75 MG TABLET PO SCH (08:33)
[2016-10-02] MEDS: CITALOPRAM 20 MG TAB PO SCH (08:33)
[2016-10-02] MEDS: DOCUSATE SODIUM 100 MG CAP PO SCH ×2 (08:33→20:28)
[2016-10-02] MEDS: AMLODIPINE 10 MG TAB PO SCH (08:33)
[2016-10-02] MEDS: GABAPENTIN 100 MG CAP PO SCH ×3 (08:35→20:28)
[2016-10-02] MEDS: FERROUS SULFATE (EC) 325 MG TAB PO SCH ×3 (08:35→20:28)
[2016-10-02] MEDS: VALSARTAN 80 MG TAB PO SCH (08:35)
[2016-10-02] MEDS: METOPROLOL 25 MG TAB PO SCH ×2 (08:35→20:35)
[2016-10-02] MEDS: RANITIDINE 150 MG TAB PO SCH ×2 (08:36→20:28)
[2016-10-02] MEDS: HYDROCORTISONE 2.5% 20 GM CR TOP SCH ×2 (08:36→20:28)
[2016-10-02] MEDS: SALMETEROL/FLUTICASONE 250/50 INHA INH SCH ×2 (08:36→20:27)
[2016-10-02] MEDS: BISACODYL 10 MG SUPP PR PRN (08:39)
[2016-10-02] MEDS: POLYETHYLENE GLYCOL 17 GM PACKET PO PRN (08:39)
[2016-10-02 09:47] VITALS: BP 125/58; RESP 16
--- NOTE | 2016-10-02 11:18 | CONS ---
Date/Time of Note Date/Time of Note DATE: 10/02/16 TIME: 11:17 Consult Date/Type/Reason Admit Date/Time Sep 29, 2016 at 18:18 Subjective Pain improving Objective pulm-cta abd-soft cga ambulation Vital Signs Date Time Temp Pulse Resp B/P Pulse Ox O2 Delivery O2 Flow Rate FiO2 10/02/16 09:47 97.7 72 16 125/58 94 10/01/16 08:00 Room Air 09/30/16 05:48 21 Intake and Output 10/01/16 10/01/16 10/02/16 15:00 23:00 07:00 Intake Total 300 ml 400 ml Output Total 200 ml Balance 300 ml 200 ml Results/Medications Result Diagram: 09/30/16 0709 09/30/16 0709 Medications Current Medications Acetaminophen (Tylenol Tab) 650 mg Q4H PRN PO TEMP GREATER THAN 101F OR MAN; Start 09/29/16 at 19:30 Al Hydrox/Mg Hydrox/Simethicone (Mag-Al Plus) 15 ml Q4H PRN PO CONSTIPATION; Start 09/29/16 at 19:30 Amlodipine Besylate (Norvasc) 10 mg DAILY PO Last administered on 10/02/16 08: 33; Admin Dose 10 MG; Start 09/30/16 at 09:00 Citalopram Hydrobromide (Celexa) 20 mg DAILY PO Last administered on 10/02/16 08:33; Admin Dose 20 MG; Start 09/30/16 at 09:00 Clonidine (Catapres) 0.1 mg Q6H PRN PO SBP GREATER THAN 160; Start 09/29/16 at 19:30 Docusate Sodium (Colace) 100 mg BID PO Last administered on 10/02/16 08:33; Admin Dose 100 MG; Start 09/29/16 at 21:00 Ferrous Sulfate (Ferrous Sulfate (Ec)) 325 mg TID PO Last administered on 08:35; Admin Dose 325 MG; Start 09/29/16 at 21:00 Gabapentin (Neurontin) 100 mg TID PO Last administered on 10/02/16 08:35; Admin Dose 100 MG; Start 09/29/16 at 21:00 Acetaminophen/ Hydrocodone Bitart ([place] (5/325)) 1 tab Q4H PRN PO PAIN LEVEL 1 -5 Last administered on 10/01/16 09:37; Admin Dose 1 TAB; Start 09/29/16 at 19: 30 Acetaminophen/ Hydrocodone Bitart ([place] (5/325)) 2 tab Q4H PRN PO PAIN LEVEL 6 -10 Last administered on 10/02/16 06:25; Admin Dose 2 TAB; Start 09/29/16 at 19: 30 Lorazepam (Ativan) 0.5 mg BID PRN PO ANXIETY Last administered on 09/30/16 20: 44; Admin Dose 0.5 MG; Start 09/29/16 at 19:30 Metoprolol Tartrate (Lopressor) 37.5 mg BID PO Last administered on 10/02/16 08 :35; Admin Dose 37.5 MG; Start 09/29/16 at 21:00 Naloxone HCl (Narcan) 0.2 mg Q2M PRN IV RR 8 BREATHS/MIN OR LESS; Start at 19:30 Polyethylene Glycol (Miralax) 17 gm DAILY PRN PO CONSTIPATION Last administered on 10/02/16 08:39; Admin Dose 17 GM; Start 09/29/16 at 19:30 Ranitidine HCl (Zantac) 150 mg BID PO Last administered on 10/02/16 08:36; Admin Dose 150 MG; Start 09/29/16 at 21:00 Salmeterol Xinafoate/ Fluticasone (Advair 250/50 Diskus) 1 inh BID INH Last administered on 10/02/16 08:36; Admin Dose 1 INH; Start 09/29/16 at 21:00 Valsartan (Diovan) 80 mg DAILY PO Last administered on 10/02/16 08:35; Admin Dose 80 MG; Start 09/30/16 at 09:00 Venlafaxine HCl (Effexor) 75 mg DAILY PO Last administered on 10/02/16 08:33; Admin Dose 75 MG; Start 09/30/16 at 09:00 Zolpidem Tartrate (Ambien) 5 mg HS PRN PO INSOMNIA; Start 09/29/16 at 19:30 Senna (Senokot) 1 tab HS PO Last administered on 10/01/16 21:09; Admin Dose 1 TAB; Start 09/29/16 at 21:00 Acetaminophen (Tylenol Tab) 650 mg Q4H PRN PO PAIN; Start 09/29/16 at 19:30 Bisacodyl (Dulcolax Supp) 10 mg DAILY PRN [place] CONSTIPATION Last administered on 10/02/16 08:39; Admin Dose 10 MG; Start 09/29/16 at 19:30 Magnesium Hydroxide (Milk Of Mag) 30 ml BID PRN PO CONSTIPATION Last administered on 09/30/16 20:43; Admin Dose 30 ML; Start 09/29/16 at 19:30 Lactulose (Enulose) 20 gm DAILY PRN PO CONSTIPATION Last administered on 21:08; Admin Dose 20 GM; Start 09/29/16 at 19:30 Hydrocortisone (Hydrocortisone 2.5% Cr) 1 applic BID TOP Last administered on 08:36; Admin Dose 1 APPLIC; Start 10/01/16 at 21:00 Assessment/Plan Additional Assessment/Plan Rehab- Spinal stenosis with radiculopathy status post decompressive laminectomy. progressing with rehab program Acute pain syndrome-under control. Chronic obstructive pulmonary disease. Hypertension. Hyperlipidemia. Constipation-continue bowel program ROSLYN SEVILLA MD Oct 02, 2016 11:18
[2016-10-02] MEDS: BACLOFEN 10 MG TAB PO SCH ×2 (11:49→20:28)
--- NOTE | 2016-10-02 13:20 | CONS ---
Date/Time of Note Date/Time of Note DATE: 10/02/16 TIME: 13:13 Assessment/Plan Assessment/Plan Chief Complaint/Hosp Course 1. she is post op a lumbar spine surgery , 09/23/16, for spinal stenosis and radiculopathy . Continue current medication and PT . She is overall doing much better. 2. confusion/disorientation is resolving , due to medication and probably some underlying cognitive impairment . 3. HTN , 4. COPD 5. hyperlipidemia 6. chronic constipation 7. rash on back , contact dermatitis , will apply hydrocortisone cream Problems: Consultation Date/Type/Reason Admit Date/Time Sep 29, 2016 at 18:18 Type of Consultation: medicine 24 HR Interval Summary Constitutional: improved, no complaints Exam/Review of Systems Vital Signs Vitals Vital Signs Date Time Temp Pulse Resp B/P Pulse Ox O2 Delivery O2 Flow Rate FiO2 10/02/16 09:47 97.7 72 16 125/58 94 10/01/16 08:00 Room Air 09/30/16 05:48 21 Intake and Output 10/01/16 10/01/16 10/02/16 15:00 23:00 07:00 Intake Total 300 ml 400 ml Output Total 200 ml Balance 300 ml 200 ml Exam Constitutional: alert, oriented, well developed Respiratory: clear to auscultation, diminished breath sounds, normal air movement Cardiovascular: regular rate and rhythm Musculoskeletal: nl extremities to inspection Results Result Diagram: 09/30/16 0709 09/30/16 0709 Medications Medications Current Medications Acetaminophen (Tylenol Tab) 650 mg Q4H PRN PO TEMP GREATER THAN 101F OR MAN; Start 09/29/16 at 19:30 Al Hydrox/Mg Hydrox/Simethicone (Mag-Al Plus) 15 ml Q4H PRN PO CONSTIPATION; Start 09/29/16 at 19:30 Amlodipine Besylate (Norvasc) 10 mg DAILY PO Last administered on 10/02/16 08: 33; Admin Dose 10 MG; Start 09/30/16 at 09:00 Citalopram Hydrobromide (Celexa) 20 mg DAILY PO Last administered on 10/02/16 08:33; Admin Dose 20 MG; Start 09/30/16 at 09:00 Clonidine (Catapres) 0.1 mg Q6H PRN PO SBP GREATER THAN 160; Start 09/29/16 at 19:30 Docusate Sodium (Colace) 100 mg BID PO Last administered on 10/02/16 08:33; Admin Dose 100 MG; Start 09/29/16 at 21:00 Ferrous Sulfate (Ferrous Sulfate (Ec)) 325 mg TID PO Last administered on 08:35; Admin Dose 325 MG; Start 09/29/16 at 21:00 Gabapentin (Neurontin) 100 mg TID PO Last administered on 10/02/16 08:35; Admin Dose 100 MG; Start 09/29/16 at 21:00 Acetaminophen/ Hydrocodone Bitart ([place] (5/325)) 1 tab Q4H PRN PO PAIN LEVEL 1 -5 Last administered on 10/01/16 09:37; Admin Dose 1 TAB; Start 09/29/16 at 19: 30 Acetaminophen/ Hydrocodone Bitart ([place] (5/325)) 2 tab Q4H PRN PO PAIN LEVEL 6 -10 Last administered on 10/02/16 11:49; Admin Dose 2 TAB; Start 09/29/16 at 19: 30 Lorazepam (Ativan) 0.5 mg BID PRN PO ANXIETY Last administered on 09/30/16 20: 44; Admin Dose 0.5 MG; Start 09/29/16 at 19:30 Metoprolol Tartrate (Lopressor) 37.5 mg BID PO Last administered on 10/02/16 08 :35; Admin Dose 37.5 MG; Start 09/29/16 at 21:00 Naloxone HCl (Narcan) 0.2 mg Q2M PRN IV RR 8 BREATHS/MIN OR LESS; Start at 19:30 Polyethylene Glycol (Miralax) 17 gm DAILY PRN PO CONSTIPATION Last administered on 10/02/16 08:39; Admin Dose 17 GM; Start 09/29/16 at 19:30 Ranitidine HCl (Zantac) 150 mg BID PO Last administered on 10/02/16 08:36; Admin Dose 150 MG; Start 09/29/16 at 21:00 Salmeterol Xinafoate/ Fluticasone (Advair 250/50 Diskus) 1 inh BID INH Last administered on 10/02/16 08:36; Admin Dose 1 INH; Start 09/29/16 at 21:00 Valsartan (Diovan) 80 mg DAILY PO Last administered on 10/02/16 08:35; Admin Dose 80 MG; Start 09/30/16 at 09:00 Venlafaxine HCl (Effexor) 75 mg DAILY PO Last administered on 10/02/16 08:33; Admin Dose 75 MG; Start 09/30/16 at 09:00 Zolpidem Tartrate (Ambien) 5 mg HS PRN PO INSOMNIA; Start 09/29/16 at 19:30 Senna (Senokot) 1 tab HS PO Last administered on 10/01/16 21:09; Admin Dose 1 TAB; Start 09/29/16 at 21:00 Acetaminophen (Tylenol Tab) 650 mg Q4H PRN PO PAIN; Start 09/29/16 at 19:30 Bisacodyl (Dulcolax Supp) 10 mg DAILY PRN [place] CONSTIPATION Last administered on 10/02/16 08:39; Admin Dose 10 MG; Start 09/29/16 at 19:30 Magnesium Hydroxide (Milk Of Mag) 30 ml BID PRN PO CONSTIPATION Last administered on 09/30/16 20:43; Admin Dose 30 ML; Start 09/29/16 at 19:30 Lactulose (Enulose) 20 gm DAILY PRN PO CONSTIPATION Last administered on 21:08; Admin Dose 20 GM; Start 09/29/16 at 19:30 Hydrocortisone (Hydrocortisone 2.5% Cr) 1 applic BID TOP Last administered on 08:36; Admin Dose 1 APPLIC; Start 10/01/16 at 21:00 Baclofen (Lioresal) 10 mg BID PO Last administered on 10/02/16 11:49; Admin Dose 10 MG; Start 10/02/16 at 11:30 KODI RASCON MD Oct 02, 2016 13:20
[2016-10-02 20:00] VITALS: BP 150/72; RESP 19
[2016-10-02] MEDS: SENNA TAB PO SCH (20:28)
[2016-10-02] MEDS: LORAZEPAM 0.5 MG TAB PO PRN (22:12)
[2016-10-03 07:30] VITALS: BP 136/97; RESP 18
[2016-10-03] MEDS: SALMETEROL/FLUTICASONE 250/50 INHA INH SCH ×2 (08:55→21:25)
[2016-10-03] MEDS: FERROUS SULFATE (EC) 325 MG TAB PO SCH ×3 (08:56→21:25)
[2016-10-03] MEDS: VENLAFAXINE 75 MG TABLET PO SCH (08:56)
[2016-10-03] MEDS: HYDROCORTISONE 2.5% 20 GM CR TOP SCH ×2 (08:56→21:25)
[2016-10-03] MEDS: DOCUSATE SODIUM 100 MG CAP PO SCH ×2 (08:56→21:25)
[2016-10-03] MEDS: RANITIDINE 150 MG TAB PO SCH ×2 (08:57→21:25)
[2016-10-03] MEDS: HYDROCODONE/APAP (5/325) TAB PO PRN ×2 (08:57→21:25)
[2016-10-03] MEDS: GABAPENTIN 100 MG CAP PO SCH ×3 (08:57→21:26)
[2016-10-03] MEDS: CITALOPRAM 20 MG TAB PO SCH (08:57)
[2016-10-03] MEDS: BACLOFEN 10 MG TAB PO SCH ×2 (08:57→21:26)
[2016-10-03] MEDS: VALSARTAN 80 MG TAB PO SCH (09:05)
[2016-10-03] MEDS: METOPROLOL 25 MG TAB PO SCH ×2 (09:05→21:26)
[2016-10-03] MEDS: AMLODIPINE 10 MG TAB PO SCH (09:06)
--- NOTE | 2016-10-03 09:45 | CONS ---
Date/Time of Note Date/Time of Note DATE: 10/03/16 TIME: 09:44 Consult Date/Type/Reason Admit Date/Time Sep 29, 2016 at 18:18 Type of Consultation: medicine Subjective Comfortable Objective pulm-cta abd-soft Vital Signs Date Time Temp Pulse Resp B/P Pulse Ox O2 Delivery O2 Flow Rate FiO2 10/03/16 07:30 98.4 77 18 136/97 94 10/01/16 08:00 Room Air 09/30/16 05:48 21 Intake and Output 10/02/16 10/02/16 10/03/16 15:00 23:00 07:00 Intake Total 1600 ml Output Total 1 ml Balance 1599 ml Results/Medications Result Diagram: 09/30/16 0709 09/30/16 0709 Medications Current Medications Acetaminophen (Tylenol Tab) 650 mg Q4H PRN PO TEMP GREATER THAN 101F OR MAN; Start 09/29/16 at 19:30 Al Hydrox/Mg Hydrox/Simethicone (Mag-Al Plus) 15 ml Q4H PRN PO CONSTIPATION; Start 09/29/16 at 19:30 Amlodipine Besylate (Norvasc) 10 mg DAILY PO Last administered on 10/03/16 09: 06; Admin Dose 10 MG; Start 09/30/16 at 09:00 Citalopram Hydrobromide (Celexa) 20 mg DAILY PO Last administered on 10/03/16 08:57; Admin Dose 20 MG; Start 09/30/16 at 09:00 Clonidine (Catapres) 0.1 mg Q6H PRN PO SBP GREATER THAN 160; Start 09/29/16 at 19:30 Docusate Sodium (Colace) 100 mg BID PO Last administered on 10/03/16 08:56; Admin Dose 100 MG; Start 09/29/16 at 21:00 Ferrous Sulfate (Ferrous Sulfate (Ec)) 325 mg TID PO Last administered on 08:56; Admin Dose 325 MG; Start 09/29/16 at 21:00 Gabapentin (Neurontin) 100 mg TID PO Last administered on 10/03/16 08:57; Admin Dose 100 MG; Start 09/29/16 at 21:00 Acetaminophen/ Hydrocodone Bitart ([place] (5/325)) 1 tab Q4H PRN PO PAIN LEVEL 1 -5 Last administered on 10/01/16 09:37; Admin Dose 1 TAB; Start 09/29/16 at 19: 30 Acetaminophen/ Hydrocodone Bitart ([place] (5/325)) 2 tab Q4H PRN PO PAIN LEVEL 6 -10 Last administered on 10/03/16 08:57; Admin Dose 2 TAB; Start 09/29/16 at 19: 30 Lorazepam (Ativan) 0.5 mg BID PRN PO ANXIETY Last administered on 10/02/16 22: 12; Admin Dose 0.5 MG; Start 09/29/16 at 19:30 Metoprolol Tartrate (Lopressor) 37.5 mg BID PO Last administered on 10/03/16 09 :05; Admin Dose 37.5 MG; Start 09/29/16 at 21:00 Naloxone HCl (Narcan) 0.2 mg Q2M PRN IV RR 8 BREATHS/MIN OR LESS; Start at 19:30 Polyethylene Glycol (Miralax) 17 gm DAILY PRN PO CONSTIPATION Last administered on 10/02/16 08:39; Admin Dose 17 GM; Start 09/29/16 at 19:30 Ranitidine HCl (Zantac) 150 mg BID PO Last administered on 10/03/16 08:57; Admin Dose 150 MG; Start 09/29/16 at 21:00 Salmeterol Xinafoate/ Fluticasone (Advair 250/50 Diskus) 1 inh BID INH Last administered on 10/03/16 08:55; Admin Dose 1 INH; Start 09/29/16 at 21:00 Valsartan (Diovan) 80 mg DAILY PO Last administered on 10/03/16 09:05; Admin Dose 80 MG; Start 09/30/16 at 09:00 Venlafaxine HCl (Effexor) 75 mg DAILY PO Last administered on 10/03/16 08:56; Admin Dose 75 MG; Start 09/30/16 at 09:00 Zolpidem Tartrate (Ambien) 5 mg HS PRN PO INSOMNIA; Start 09/29/16 at 19:30 Senna (Senokot) 1 tab HS PO Last administered on 10/02/16 20:28; Admin Dose 1 TAB; Start 09/29/16 at 21:00 Acetaminophen (Tylenol Tab) 650 mg Q4H PRN PO PAIN; Start 09/29/16 at 19:30 Bisacodyl (Dulcolax Supp) 10 mg DAILY PRN [place] CONSTIPATION Last administered on 10/02/16 08:39; Admin Dose 10 MG; Start 09/29/16 at 19:30 Magnesium Hydroxide (Milk Of Mag) 30 ml BID PRN PO CONSTIPATION Last administered on 09/30/16 20:43; Admin Dose 30 ML; Start 09/29/16 at 19:30 Lactulose (Enulose) 20 gm DAILY PRN PO CONSTIPATION Last administered on 21:08; Admin Dose 20 GM; Start 09/29/16 at 19:30 Hydrocortisone (Hydrocortisone 2.5% Cr) 1 applic BID TOP Last administered on 08:56; Admin Dose 1 APPLIC; Start 10/01/16 at 21:00 Baclofen (Lioresal) 10 mg BID PO Last administered on 10/03/16 08:57; Admin Dose 10 MG; Start 10/02/16 at 11:30 Assessment/Plan Additional Assessment/Plan Rehab- Spinal stenosis with radiculopathy status post decompressive laminectomy. Continue rehab program, overall improving Acute pain syndrome-under control. Chronic obstructive pulmonary disease. Hypertension. Hyperlipidemia. Constipation-continue bowel program ORSLYN SEVILLA MD Oct 03, 2016 09:44
--- NOTE | 2016-10-03 13:17 | CONS ---
Date/Time of Note Date/Time of Note DATE: 10/03/16 TIME: 13:16 Assessment/Plan Assessment/Plan Additional Assessment/Plan 1. post op lumbar spine surgery , 09/23/16, for spinal stenosis and radiculopathy . - doing well with PT, cont course 2. confusion/disorientation - resolved 3. HTN 4. COPD 5. hyperlipidemia 6. chronic constipation 7. Contact dermatitis - cont hydrocortisone cream Consultation Date/Type/Reason Admit Date/Time Sep 29, 2016 at 18:18 Initial Consult Date Type of Consultation: medicine 24 HR Interval Summary Free Text/Dictation no acute complaints. Hoping to go home soon. Constitutional: improved, no complaints Exam/Review of Systems Vital Signs Vitals Vital Signs Date Time Temp Pulse Resp B/P Pulse Ox O2 Delivery O2 Flow Rate FiO2 10/03/16 07:30 98.4 77 18 136/97 94 10/01/16 08:00 Room Air 09/30/16 05:48 21 Intake and Output 10/02/16 10/02/16 10/03/16 15:00 23:00 07:00 Intake Total 1600 ml Output Total 1 ml Balance 1599 ml Exam Constitutional: alert, oriented, well developed Respiratory: clear to auscultation, normal air movement Cardiovascular: nl pulses, regular rate and rhythm Results Result Diagram: 09/30/16 0709 09/30/16 0709 Medications Medications Current Medications Acetaminophen (Tylenol Tab) 650 mg Q4H PRN PO TEMP GREATER THAN 101F OR MAN; Start 09/29/16 at 19:30 Al Hydrox/Mg Hydrox/Simethicone (Mag-Al Plus) 15 ml Q4H PRN PO CONSTIPATION; Start 09/29/16 at 19:30 Amlodipine Besylate (Norvasc) 10 mg DAILY PO Last administered on 10/03/16 09: 06; Admin Dose 10 MG; Start 09/30/16 at 09:00 Citalopram Hydrobromide (Celexa) 20 mg DAILY PO Last administered on 10/03/16 08:57; Admin Dose 20 MG; Start 09/30/16 at 09:00 Clonidine (Catapres) 0.1 mg Q6H PRN PO SBP GREATER THAN 160; Start 09/29/16 at 19:30 Docusate Sodium (Colace) 100 mg BID PO Last administered on 10/03/16 08:56; Admin Dose 100 MG; Start 09/29/16 at 21:00 Ferrous Sulfate (Ferrous Sulfate (Ec)) 325 mg TID PO Last administered on 12:44; Admin Dose 325 MG; Start 09/29/16 at 21:00 Gabapentin (Neurontin) 100 mg TID PO Last administered on 10/03/16 12:44; Admin Dose 100 MG; Start 09/29/16 at 21:00 Acetaminophen/ Hydrocodone Bitart ([place] (5/325)) 1 tab Q4H PRN PO PAIN LEVEL 1 -5 Last administered on 10/01/16 09:37; Admin Dose 1 TAB; Start 09/29/16 at 19: 30 Acetaminophen/ Hydrocodone Bitart ([place] (5/325)) 2 tab Q4H PRN PO PAIN LEVEL 6 -10 Last administered on 10/03/16 08:57; Admin Dose 2 TAB; Start 09/29/16 at 19: 30 Lorazepam (Ativan) 0.5 mg BID PRN PO ANXIETY Last administered on 10/02/16 22: 12; Admin Dose 0.5 MG; Start 09/29/16 at 19:30 Metoprolol Tartrate (Lopressor) 37.5 mg BID PO Last administered on 10/03/16 09 :05; Admin Dose 37.5 MG; Start 09/29/16 at 21:00 Naloxone HCl (Narcan) 0.2 mg Q2M PRN IV RR 8 BREATHS/MIN OR LESS; Start at 19:30 Polyethylene Glycol (Miralax) 17 gm DAILY PRN PO CONSTIPATION Last administered on 10/02/16 08:39; Admin Dose 17 GM; Start 09/29/16 at 19:30 Ranitidine HCl (Zantac) 150 mg BID PO Last administered on 10/03/16 08:57; Admin Dose 150 MG; Start 09/29/16 at 21:00 Salmeterol Xinafoate/ Fluticasone (Advair 250/50 Diskus) 1 inh BID INH Last administered on 10/03/16 08:55; Admin Dose 1 INH; Start 09/29/16 at 21:00 Valsartan (Diovan) 80 mg DAILY PO Last administered on 10/03/16 09:05; Admin Dose 80 MG; Start 09/30/16 at 09:00 Venlafaxine HCl (Effexor) 75 mg DAILY PO Last administered on 10/03/16 08:56; Admin Dose 75 MG; Start 09/30/16 at 09:00 Zolpidem Tartrate (Ambien) 5 mg HS PRN PO INSOMNIA; Start 09/29/16 at 19:30 Senna (Senokot) 1 tab HS PO Last administered on 10/02/16 20:28; Admin Dose 1 TAB; Start 09/29/16 at 21:00 Acetaminophen (Tylenol Tab) 650 mg Q4H PRN PO PAIN; Start 09/29/16 at 19:30 Bisacodyl (Dulcolax Supp) 10 mg DAILY PRN [place] CONSTIPATION Last administered on 10/02/16 08:39; Admin Dose 10 MG; Start 09/29/16 at 19:30 Magnesium Hydroxide (Milk Of Mag) 30 ml BID PRN PO CONSTIPATION Last administered on 09/30/16 20:43; Admin Dose 30 ML; Start 09/29/16 at 19:30 Lactulose (Enulose) 20 gm DAILY PRN PO CONSTIPATION Last administered on 21:08; Admin Dose 20 GM; Start 09/29/16 at 19:30 Hydrocortisone (Hydrocortisone 2.5% Cr) 1 applic BID TOP Last administered on 08:56; Admin Dose 1 APPLIC; Start 10/01/16 at 21:00 Baclofen (Lioresal) 10 mg BID PO Last administered on 10/03/16 08:57; Admin Dose 10 MG; Start 10/02/16 at 11:30 TODD DIANA MD Oct 03, 2016 13:17
[2016-10-03 19:53] VITALS: BP 115/72; RESP 18
[2016-10-03] MEDS: SENNA TAB PO SCH (21:25)
[2016-10-03] MEDS: LORAZEPAM 0.5 MG TAB PO PRN (21:26)
[2016-10-04 08:00] VITALS: BP 147/65; PULSE 64; RESP 18
[2016-10-04] MEDS: FERROUS SULFATE (EC) 325 MG TAB PO SCH ×3 (08:35→20:52)
[2016-10-04] MEDS: BACLOFEN 10 MG TAB PO SCH ×2 (08:35→20:53)
[2016-10-04] MEDS: GABAPENTIN 100 MG CAP PO SCH ×3 (08:35→20:53)
[2016-10-04] MEDS: SALMETEROL/FLUTICASONE 250/50 INHA INH SCH ×2 (08:35→20:52)
[2016-10-04] MEDS: VALSARTAN 80 MG TAB PO SCH (08:36)
[2016-10-04] MEDS: DOCUSATE SODIUM 100 MG CAP PO SCH ×2 (08:36→20:53)
[2016-10-04] MEDS: RANITIDINE 150 MG TAB PO SCH ×2 (08:36→20:53)
[2016-10-04] MEDS: VENLAFAXINE 75 MG TABLET PO SCH (08:36)
[2016-10-04] MEDS: CITALOPRAM 20 MG TAB PO SCH (08:36)
[2016-10-04] MEDS: METOPROLOL 25 MG TAB PO SCH ×2 (08:37→20:56)
[2016-10-04] MEDS: AMLODIPINE 10 MG TAB PO SCH (08:37)
[2016-10-04] MEDS: HYDROCORTISONE 2.5% 20 GM CR TOP SCH ×2 (08:38→20:52)
--- NOTE | 2016-10-04 12:13 | CONS ---
Date/Time of Note Date/Time of Note DATE: 10/04/16 TIME: 12:12 Assessment/Plan Assessment/Plan Additional Assessment/Plan 1. post op lumbar spine surgery , 09/23/16, for spinal stenosis and radiculopathy . - doing well with PT, cont course 2. confusion/disorientation - resolved 3. HTN 4. COPD 5. hyperlipidemia 6. chronic constipation 7. Contact dermatitis - cont hydrocortisone cream Consultation Date/Type/Reason Admit Date/Time Sep 29, 2016 at 18:18 Type of Consultation: medicine 24 HR Interval Summary Free Text/Dictation no acute complaints. Exam/Review of Systems Vital Signs Vitals Vital Signs Date Time Temp Pulse Resp B/P Pulse Ox O2 Delivery O2 Flow Rate FiO2 10/04/16 08:00 98.0 64 18 147/65 97 Room Air Intake and Output 10/03/16 10/03/16 10/04/16 15:00 23:00 07:00 Intake Total 850 ml 1520 ml Balance 850 ml 1520 ml Exam Constitutional: alert, oriented, well developed Respiratory: clear to auscultation, normal air movement Cardiovascular: nl pulses, regular rate and rhythm Results Result Diagram: 09/30/16 0709 09/30/16 0709 Medications Medications Current Medications Acetaminophen (Tylenol Tab) 650 mg Q4H PRN PO TEMP GREATER THAN 101F OR MAN; Start 09/29/16 at 19:30 Al Hydrox/Mg Hydrox/Simethicone (Mag-Al Plus) 15 ml Q4H PRN PO CONSTIPATION; Start 09/29/16 at 19:30 Amlodipine Besylate (Norvasc) 10 mg DAILY PO Last administered on 10/04/16 08: 37; Admin Dose 10 MG; Start 09/30/16 at 09:00 Citalopram Hydrobromide (Celexa) 20 mg DAILY PO Last administered on 10/04/16 08:36; Admin Dose 20 MG; Start 09/30/16 at 09:00 Clonidine (Catapres) 0.1 mg Q6H PRN PO SBP GREATER THAN 160; Start 09/29/16 at 19:30 Docusate Sodium (Colace) 100 mg BID PO Last administered on 10/04/16 08:36; Admin Dose 100 MG; Start 09/29/16 at 21:00 Ferrous Sulfate (Ferrous Sulfate (Ec)) 325 mg TID PO Last administered on 08:35; Admin Dose 325 MG; Start 09/29/16 at 21:00 Gabapentin (Neurontin) 100 mg TID PO Last administered on 10/04/16 08:35; Admin Dose 100 MG; Start 09/29/16 at 21:00 Acetaminophen/ Hydrocodone Bitart ([place] (5/325)) 1 tab Q4H PRN PO PAIN LEVEL 1 -5 Last administered on 10/01/16 09:37; Admin Dose 1 TAB; Start 09/29/16 at 19: 30 Acetaminophen/ Hydrocodone Bitart ([place] (5/325)) 2 tab Q4H PRN PO PAIN LEVEL 6 -10 Last administered on 10/03/16 21:25; Admin Dose 2 TAB; Start 09/29/16 at 19: 30 Lorazepam (Ativan) 0.5 mg BID PRN PO ANXIETY Last administered on 10/03/16 21: 26; Admin Dose 0.5 MG; Start 09/29/16 at 19:30 Metoprolol Tartrate (Lopressor) 37.5 mg BID PO Last administered on 10/04/16 08 :37; Admin Dose 37.5 MG; Start 09/29/16 at 21:00 Naloxone HCl (Narcan) 0.2 mg Q2M PRN IV RR 8 BREATHS/MIN OR LESS; Start at 19:30 Polyethylene Glycol (Miralax) 17 gm DAILY PRN PO CONSTIPATION Last administered on 10/02/16 08:39; Admin Dose 17 GM; Start 09/29/16 at 19:30 Ranitidine HCl (Zantac) 150 mg BID PO Last administered on 10/04/16 08:36; Admin Dose 150 MG; Start 09/29/16 at 21:00 Salmeterol Xinafoate/ Fluticasone (Advair 250/50 Diskus) 1 inh BID INH Last administered on 10/04/16 08:35; Admin Dose 1 INH; Start 09/29/16 at 21:00 Valsartan (Diovan) 80 mg DAILY PO Last administered on 10/04/16 08:36; Admin Dose 80 MG; Start 09/30/16 at 09:00 Venlafaxine HCl (Effexor) 75 mg DAILY PO Last administered on 10/04/16 08:36; Admin Dose 75 MG; Start 09/30/16 at 09:00 Zolpidem Tartrate (Ambien) 5 mg HS PRN PO INSOMNIA; Start 09/29/16 at 19:30 Senna (Senokot) 1 tab HS PO Last administered on 10/03/16 21:25; Admin Dose 1 TAB; Start 09/29/16 at 21:00 Acetaminophen (Tylenol Tab) 650 mg Q4H PRN PO PAIN; Start 09/29/16 at 19:30 Bisacodyl (Dulcolax Supp) 10 mg DAILY PRN [place] CONSTIPATION Last administered on 10/02/16 08:39; Admin Dose 10 MG; Start 09/29/16 at 19:30 Magnesium Hydroxide (Milk Of Mag) 30 ml BID PRN PO CONSTIPATION Last administered on 09/30/16 20:43; Admin Dose 30 ML; Start 09/29/16 at 19:30 Lactulose (Enulose) 20 gm DAILY PRN PO CONSTIPATION Last administered on 21:08; Admin Dose 20 GM; Start 09/29/16 at 19:30 Hydrocortisone (Hydrocortisone 2.5% Cr) 1 applic BID TOP Last administered on 08:38; Admin Dose 1 APPLIC; Start 10/01/16 at 21:00 Baclofen (Lioresal) 10 mg BID PO Last administered on 10/04/16 08:35; Admin Dose 10 MG; Start 10/02/16 at 11:30 TODD DIANA MD Oct 04, 2016 12:13
[2016-10-04] MEDS: HYDROCODONE/APAP (5/325) TAB PO PRN ×2 (16:25→23:54)
[2016-10-04 19:18] VITALS: BP 128/60; RESP 20
[2016-10-04] MEDS: SENNA TAB PO SCH (20:53)
[2016-10-04] MEDS: LORAZEPAM 0.5 MG TAB PO PRN (23:50)
[2016-10-05 07:30] VITALS: BP 136/62; RESP 18
[2016-10-05] MEDS: HYDROCODONE/APAP (5/325) TAB PO PRN ×2 (08:55→20:19)
[2016-10-05] MEDS: VALSARTAN 80 MG TAB PO SCH (09:35)
[2016-10-05] MEDS: SALMETEROL/FLUTICASONE 250/50 INHA INH SCH ×2 (09:35→20:17)
[2016-10-05] MEDS: FERROUS SULFATE (EC) 325 MG TAB PO SCH ×3 (09:36→20:18)
[2016-10-05] MEDS: BACLOFEN 10 MG TAB PO SCH ×2 (09:36→20:18)
[2016-10-05] MEDS: VENLAFAXINE 75 MG TABLET PO SCH (09:36)
[2016-10-05] MEDS: DOCUSATE SODIUM 100 MG CAP PO SCH ×2 (09:36→20:18)
[2016-10-05] MEDS: RANITIDINE 150 MG TAB PO SCH ×2 (09:36→20:19)
[2016-10-05] MEDS: AMLODIPINE 10 MG TAB PO SCH (09:36)
[2016-10-05] MEDS: CITALOPRAM 20 MG TAB PO SCH (09:36)
[2016-10-05] MEDS: GABAPENTIN 100 MG CAP PO SCH ×3 (09:36→20:18)
[2016-10-05] MEDS: HYDROCORTISONE 2.5% 20 GM CR TOP SCH ×2 (09:37→20:26)
[2016-10-05] MEDS: METOPROLOL 25 MG TAB PO SCH ×2 (09:37→20:25)
--- NOTE | 2016-10-05 11:32 | CONS ---
Date/Time of Note Date/Time of Note DATE: 10/05/16 TIME: 11:31 Consult Date/Type/Reason Admit Date/Time Sep 29, 2016 at 18:18 Type of Consultation: medicine Objective Vital Signs Date Time Temp Pulse Resp B/P Pulse Ox O2 Delivery O2 Flow Rate FiO2 10/05/16 07:30 98.8 76 18 136/62 96 10/04/16 08:00 Room Air Intake and Output 10/04/16 10/04/16 10/05/16 15:00 23:00 07:00 Intake Total 500 ml 600 ml Balance 500 ml 600 ml INTERDISCIPLINARY TEAM CONFERENCE BOWEL- Cont BLADDER-Cont SKIN- intact OT- DRESSING-min BATHING-min TOILETING-min PT- BED MOBILITY-min TRANSFERS-min AMBULATION-min 150 feet A/P- Interdisciplinary team conference held today. Please see interdisciplinary sheet. Working toward d.cSherice on 10/08 with post discharge follow up of physical therapy, occupational therapy. Results/Medications Medications Current Medications Acetaminophen (Tylenol Tab) 650 mg Q4H PRN PO TEMP GREATER THAN 101F OR MAN; Start 09/29/16 at 19:30 Al Hydrox/Mg Hydrox/Simethicone (Mag-Al Plus) 15 ml Q4H PRN PO CONSTIPATION; Start 09/29/16 at 19:30 Amlodipine Besylate (Norvasc) 10 mg DAILY PO Last administered on 10/05/16 09: 36; Admin Dose 10 MG; Start 09/30/16 at 09:00 Citalopram Hydrobromide (Celexa) 20 mg DAILY PO Last administered on 10/05/16 09:36; Admin Dose 20 MG; Start 09/30/16 at 09:00 Clonidine (Catapres) 0.1 mg Q6H PRN PO SBP GREATER THAN 160; Start 09/29/16 at 19:30 Docusate Sodium (Colace) 100 mg BID PO Last administered on 10/05/16 09:36; Admin Dose 100 MG; Start 09/29/16 at 21:00 Ferrous Sulfate (Ferrous Sulfate (Ec)) 325 mg TID PO Last administered on 09:36; Admin Dose 325 MG; Start 09/29/16 at 21:00 Gabapentin (Neurontin) 100 mg TID PO Last administered on 10/05/16 09:36; Admin Dose 100 MG; Start 09/29/16 at 21:00 Acetaminophen/ Hydrocodone Bitart ([place] (5/325)) 1 tab Q4H PRN PO PAIN LEVEL 1 -5 Last administered on 10/05/16 08:55; Admin Dose 1 TAB; Start 09/29/16 at 19: 30 Acetaminophen/ Hydrocodone Bitart ([place] (5/325)) 2 tab Q4H PRN PO PAIN LEVEL 6 -10 Last administered on 10/03/16 21:25; Admin Dose 2 TAB; Start 09/29/16 at 19: 30 Lorazepam (Ativan) 0.5 mg BID PRN PO ANXIETY Last administered on 10/04/16 23: 50; Admin Dose 0.5 MG; Start 09/29/16 at 19:30 Metoprolol Tartrate (Lopressor) 37.5 mg BID PO Last administered on 10/05/16 09 :37; Admin Dose 37.5 MG; Start 09/29/16 at 21:00 Naloxone HCl (Narcan) 0.2 mg Q2M PRN IV RR 8 BREATHS/MIN OR LESS; Start at 19:30 Polyethylene Glycol (Miralax) 17 gm DAILY PRN PO CONSTIPATION Last administered on 10/02/16 08:39; Admin Dose 17 GM; Start 09/29/16 at 19:30 Ranitidine HCl (Zantac) 150 mg BID PO Last administered on 10/05/16 09:36; Admin Dose 150 MG; Start 09/29/16 at 21:00 Salmeterol Xinafoate/ Fluticasone (Advair 250/50 Diskus) 1 inh BID INH Last administered on 10/05/16 09:35; Admin Dose 1 INH; Start 09/29/16 at 21:00 Valsartan (Diovan) 80 mg DAILY PO Last administered on 10/05/16 09:35; Admin Dose 80 MG; Start 09/30/16 at 09:00 Venlafaxine HCl (Effexor) 75 mg DAILY PO Last administered on 10/05/16 09:36; Admin Dose 75 MG; Start 09/30/16 at 09:00 Zolpidem Tartrate (Ambien) 5 mg HS PRN PO INSOMNIA; Start 09/29/16 at 19:30 Senna (Senokot) 1 tab HS PO Last administered on 10/04/16 20:53; Admin Dose 1 TAB; Start 09/29/16 at 21:00 Acetaminophen (Tylenol Tab) 650 mg Q4H PRN PO PAIN; Start 09/29/16 at 19:30 Bisacodyl (Dulcolax Supp) 10 mg DAILY PRN [place] CONSTIPATION Last administered on 10/02/16 08:39; Admin Dose 10 MG; Start 09/29/16 at 19:30 Magnesium Hydroxide (Milk Of Mag) 30 ml BID PRN PO CONSTIPATION Last administered on 09/30/16 20:43; Admin Dose 30 ML; Start 09/29/16 at 19:30 Lactulose (Enulose) 20 gm DAILY PRN PO CONSTIPATION Last administered on 21:08; Admin Dose 20 GM; Start 09/29/16 at 19:30 Hydrocortisone (Hydrocortisone 2.5% Cr) 1 applic BID TOP Last administered on 09:37; Admin Dose 1 APPLIC; Start 10/01/16 at 21:00 Baclofen (Lioresal) 10 mg BID PO Last administered on 10/05/16 09:36; Admin Dose 10 MG; Start 10/02/16 at 11:30 ROSLYN SEVILLA MD Oct 05, 2016 11:32
--- NOTE | 2016-10-05 12:35 | CONS ---
Date/Time of Note Date/Time of Note DATE: 10/05/16 TIME: 12:30 Assessment/Plan Assessment/Plan Chief Complaint/Hosp Course 1. she is post op a lumbar spine surgery , 09/23/16, for spinal stenosis and radiculopathy . Continue current medication and PT . She is overall doing much better.. I will order labs for tomorrow morning. 2. confusion/disorientation is resolving , due to medication and probably some underlying cognitive impairment . 3. HTN , 4. COPD 5. hyperlipidemia 6. chronic constipation 7. rash on back , contact dermatitis , will apply hydrocortisone cream , this has improved. Problems: Consultation Date/Type/Reason Admit Date/Time Sep 29, 2016 at 18:18 Type of Consultation: medicine 24 HR Interval Summary Free Text/Dictation She says that she is feeling better. She is having less right leg pain. She is sitting up now at the lunch table in the dining room. Exam/Review of Systems Vital Signs Vitals Vital Signs Date Time Temp Pulse Resp B/P Pulse Ox O2 Delivery O2 Flow Rate FiO2 10/05/16 07:30 98.8 76 18 136/62 96 10/04/16 08:00 Room Air Intake and Output 10/04/16 10/04/16 10/05/16 15:00 23:00 07:00 Intake Total 500 ml 600 ml Balance 500 ml 600 ml Exam Constitutional: alert, oriented, well developed Psych: nl mood/affect, no complaints Respiratory: clear to auscultation, normal air movement Cardiovascular: nl pulses, regular rate and rhythm Gastrointestinal: soft Musculoskeletal: nl extremities to inspection Medications Medications Current Medications Acetaminophen (Tylenol Tab) 650 mg Q4H PRN PO TEMP GREATER THAN 101F OR MAN; Start 09/29/16 at 19:30 Al Hydrox/Mg Hydrox/Simethicone (Mag-Al Plus) 15 ml Q4H PRN PO CONSTIPATION; Start 09/29/16 at 19:30 Amlodipine Besylate (Norvasc) 10 mg DAILY PO Last administered on 10/05/16 09: 36; Admin Dose 10 MG; Start 09/30/16 at 09:00 Citalopram Hydrobromide (Celexa) 20 mg DAILY PO Last administered on 10/05/16 09:36; Admin Dose 20 MG; Start 09/30/16 at 09:00 Clonidine (Catapres) 0.1 mg Q6H PRN PO SBP GREATER THAN 160; Start 09/29/16 at 19:30 Docusate Sodium (Colace) 100 mg BID PO Last administered on 10/05/16 09:36; Admin Dose 100 MG; Start 09/29/16 at 21:00 Ferrous Sulfate (Ferrous Sulfate (Ec)) 325 mg TID PO Last administered on 09:36; Admin Dose 325 MG; Start 09/29/16 at 21:00 Gabapentin (Neurontin) 100 mg TID PO Last administered on 10/05/16 09:36; Admin Dose 100 MG; Start 09/29/16 at 21:00 Acetaminophen/ Hydrocodone Bitart ([place] (5/325)) 1 tab Q4H PRN PO PAIN LEVEL 1 -5 Last administered on 10/05/16 08:55; Admin Dose 1 TAB; Start 09/29/16 at 19: 30 Acetaminophen/ Hydrocodone Bitart ([place] (5/325)) 2 tab Q4H PRN PO PAIN LEVEL 6 -10 Last administered on 10/03/16 21:25; Admin Dose 2 TAB; Start 09/29/16 at 19: 30 Lorazepam (Ativan) 0.5 mg BID PRN PO ANXIETY Last administered on 10/04/16 23: 50; Admin Dose 0.5 MG; Start 09/29/16 at 19:30 Metoprolol Tartrate (Lopressor) 37.5 mg BID PO Last administered on 10/05/16 09 :37; Admin Dose 37.5 MG; Start 09/29/16 at 21:00 Naloxone HCl (Narcan) 0.2 mg Q2M PRN IV RR 8 BREATHS/MIN OR LESS; Start at 19:30 Polyethylene Glycol (Miralax) 17 gm DAILY PRN PO CONSTIPATION Last administered on 10/02/16 08:39; Admin Dose 17 GM; Start 09/29/16 at 19:30 Ranitidine HCl (Zantac) 150 mg BID PO Last administered on 10/05/16 09:36; Admin Dose 150 MG; Start 09/29/16 at 21:00 Salmeterol Xinafoate/ Fluticasone (Advair 250/50 Diskus) 1 inh BID INH Last administered on 10/05/16 09:35; Admin Dose 1 INH; Start 09/29/16 at 21:00 Valsartan (Diovan) 80 mg DAILY PO Last administered on 10/05/16 09:35; Admin Dose 80 MG; Start 09/30/16 at 09:00 Venlafaxine HCl (Effexor) 75 mg DAILY PO Last administered on 10/05/16 09:36; Admin Dose 75 MG; Start 09/30/16 at 09:00 Zolpidem Tartrate (Ambien) 5 mg HS PRN PO INSOMNIA; Start 09/29/16 at 19:30 Senna (Senokot) 1 tab HS PO Last administered on 10/04/16 20:53; Admin Dose 1 TAB; Start 09/29/16 at 21:00 Acetaminophen (Tylenol Tab) 650 mg Q4H PRN PO PAIN; Start 09/29/16 at 19:30 Bisacodyl (Dulcolax Supp) 10 mg DAILY PRN [place] CONSTIPATION Last administered on 10/02/16 08:39; Admin Dose 10 MG; Start 09/29/16 at 19:30 Magnesium Hydroxide (Milk Of Mag) 30 ml BID PRN PO CONSTIPATION Last administered on 09/30/16 20:43; Admin Dose 30 ML; Start 09/29/16 at 19:30 Lactulose (Enulose) 20 gm DAILY PRN PO CONSTIPATION Last administered on 21:08; Admin Dose 20 GM; Start 09/29/16 at 19:30 Hydrocortisone (Hydrocortisone 2.5% Cr) 1 applic BID TOP Last administered on 09:37; Admin Dose 1 APPLIC; Start 10/01/16 at 21:00 Baclofen (Lioresal) 10 mg BID PO Last administered on 10/05/16 09:36; Admin Dose 10 MG; Start 10/02/16 at 11:30 KODI RASCON MD Oct 05, 2016 12:35
[2016-10-05 19:31] VITALS: BP 165/70; RESP 19
[2016-10-05] MEDS: SENNA TAB PO SCH (20:18)
[2016-10-05] MEDS: LORAZEPAM 0.5 MG TAB PO PRN (20:19)
[2016-10-06 07:07] LABS: ADD SCAN DIFF NO
[2016-10-06 07:15] LABS: BASOPHILS % 0.5 % (0.0-2.0); EOSINOPHILS # 0.2 10^3/ul (0.0-0.5); EOSINOPHILS % 3.1 % (0.0-7.0); HEMATOCRIT 36.1 % (37.0-47.0); HEMOGLOBIN 11.6 g/dl (12.0-16.0); LYMPHOCYTES # 1.5 10^3/ul (0.8-2.9); LYMPHOCYTES % 19.4 % (15.0-51.0); MEAN CORPUSCULAR HEMOGLOBIN 30.5 pg (29.0-33.0); MEAN CORPUSCULAR HGB CONC 32.1 g/dl (32.0-37.0); MEAN PLATELET VOLUME 8.9 fl (7.4-10.4); MONOCYTE # 0.7 10^3/ul (0.3-0.9); MONOCYTES % 9.7 % (0.0-11.0); NEUTROPHIL # 5.1 10^3/ul (1.6-7.5); NEUTROPHILS % 66.8 % (39.0-77.0); PLATELET COUNT 276 10^3/UL (140-415); RED CELL DISTRIBUTION WIDTH 13.3 % (11.5-14.5); WHITE BLOOD COUNT 7.6 10^3/ul (4.8-10.8)
[2016-10-06 07:26] LABS: ALBUMIN 3.3 g/dl (3.3-4.9); POTASSIUM 4.8 mmol/L (3.5-5.1)
[2016-10-06 07:28] LABS: CREATININE 0.77 mg/dl (0.44-1.00)
[2016-10-06 07:29] LABS: ALBUMIN/GLOBULIN RATIO 1.1; CALCIUM 9.5 mg/dl (8.4-10.2); TOTAL PROTEIN 6.3 g/dl (6.1-8.1)
[2016-10-06] MEDS: HYDROCODONE/APAP (5/325) TAB PO PRN ×2 (08:00→20:44)
[2016-10-06 08:23] VITALS: BP 133/62; RESP 18
[2016-10-06] MEDS: AMLODIPINE 10 MG TAB PO SCH (09:00)
[2016-10-06] MEDS: VENLAFAXINE 75 MG TABLET PO SCH (09:00)
[2016-10-06] MEDS: METOPROLOL 25 MG TAB PO SCH ×2 (09:00→20:43)
[2016-10-06] MEDS: VALSARTAN 80 MG TAB PO SCH (09:00)
[2016-10-06] MEDS: HYDROCORTISONE 2.5% 20 GM CR TOP SCH ×2 (09:00→20:48)
[2016-10-06] MEDS: DOCUSATE SODIUM 100 MG CAP PO SCH ×2 (09:27→20:44)
[2016-10-06] MEDS: SALMETEROL/FLUTICASONE 250/50 INHA INH SCH ×2 (09:27→20:41)
[2016-10-06] MEDS: FERROUS SULFATE (EC) 325 MG TAB PO SCH ×3 (09:27→20:44)
[2016-10-06] MEDS: GABAPENTIN 100 MG CAP PO SCH ×3 (09:27→20:44)
[2016-10-06] MEDS: CITALOPRAM 20 MG TAB PO SCH (09:28)
[2016-10-06] MEDS: RANITIDINE 150 MG TAB PO SCH ×2 (09:28→20:44)
[2016-10-06] MEDS: BACLOFEN 10 MG TAB PO SCH ×2 (09:29→20:44)
--- NOTE | 2016-10-06 12:27 | CONS ---
Date/Time of Note Date/Time of Note DATE: 10/06/16 TIME: 12:27 Consult Date/Type/Reason Admit Date/Time Sep 29, 2016 at 18:18 Type of Consultation: medicine Subjective no new complaints Objective pulm-cta abd-soft sba ambulation Vital Signs Date Time Temp Pulse Resp B/P Pulse Ox O2 Delivery O2 Flow Rate FiO2 10/06/16 08:23 98.7 69 18 133/62 96 10/04/16 08:00 Room Air Intake and Output 10/05/16 10/05/16 10/06/16 15:00 23:00 07:00 Intake Total 860 ml 240 ml Balance 860 ml 240 ml Results/Medications Result Diagram: 10/06/1662210/06/16 0623 Results 24 hrs Laboratory Tests Test 10/06/16 06:23 Alanine Aminotransferase (ALT/SGPT) 41 Albumin 3.3 Albumin/Globulin Ratio 1.10 Alkaline Phosphatase 163 H Anion Gap 12 Aspartate Amino Transf (AST/SGOT) 27 Basophils # 0.0 Basophils % 0.5 Blood Urea Nitrogen 18 Calcium Level 9.5 Carbon Dioxide Level 34 H Chloride Level 101 Creatinine 0.77 Direct Bilirubin 0.00 Eosinophils # 0.2 Eosinophils % 3.1 Globulin 3.00 Glucose Level 88 Hematocrit 36.1 L Hemoglobin 11.6 L Indirect Bilirubin 0.0 Lymphocytes # 1.5 Lymphocytes % 19.4 Mean Corpuscular Hemoglobin 30.5 Mean Corpuscular Hemoglobin Concent 32.1 Mean Corpuscular Volume 95.0 Mean Platelet Volume 8.9 Monocytes # 0.7 Monocytes % 9.7 Neutrophils # 5.1 Neutrophils % 66.8 Nucleated Red Blood Cells # 0.0 Nucleated Red Blood Cells % 0.0 Platelet Count 276 Potassium Level 4.8 Red Blood Count 3.80 L Red Cell Distribution Width 13.3 Sodium Level 142 Total Bilirubin 0.0 L Total Protein 6.3 White Blood Count 7.6 Medications Current Medications Acetaminophen (Tylenol Tab) 650 mg Q4H PRN PO TEMP GREATER THAN 101F OR MAN; Start 09/29/16 at 19:30 Al Hydrox/Mg Hydrox/Simethicone (Mag-Al Plus) 15 ml Q4H PRN PO CONSTIPATION; Start 09/29/16 at 19:30 Amlodipine Besylate (Norvasc) 10 mg DAILY PO Last administered on 10/05/16t 09: 36; Admin Dose 10 MG; Start 09/30/16 at 09:00 Citalopram Hydrobromide (Celexa) 20 mg DAILY PO Last administered on 10/06/16 09:28; Admin Dose 20 MG; Start 09/30/16 at 09:00 Clonidine (Catapres) 0.1 mg Q6H PRN PO SBP GREATER THAN 160; Start 09/29/16 at 19:30 Docusate Sodium (Colace) 100 mg BID PO Last administered on 10/06/16 09:27; Admin Dose 100 MG; Start 09/29/16 at 21:00 Ferrous Sulfate (Ferrous Sulfate (Ec)) 325 mg TID PO Last administered on 09:27; Admin Dose 325 MG; Start 09/29/16 at 21:00 Gabapentin (Neurontin) 100 mg TID PO Last administered on 10/06/16 09:27; Admin Dose 100 MG; Start 09/29/16 at 21:00 Acetaminophen/ Hydrocodone Bitart ([place] (5/325)) 1 tab Q4H PRN PO PAIN LEVEL 1 -5 Last administered on 10/05/16 20:19; Admin Dose 1 TAB; Start 09/29/16 at 19: 30 Acetaminophen/ Hydrocodone Bitart ([place] (5/325)) 2 tab Q4H PRN PO PAIN LEVEL 6 -10 Last administered on 10/06/16 08:00; Admin Dose 2 TAB; Start 09/29/16 at 19: 30 Lorazepam (Ativan) 0.5 mg BID PRN PO ANXIETY Last administered on 10/05/16 20: 19; Admin Dose 0.5 MG; Start 09/29/16 at 19:30 Metoprolol Tartrate (Lopressor) 37.5 mg BID PO Last administered on 10/05/16 20 :25; Admin Dose 37.5 MG; Start 09/29/16 at 21:00 Naloxone HCl (Narcan) 0.2 mg Q2M PRN IV RR 8 BREATHS/MIN OR LESS; Start at 19:30 Polyethylene Glycol (Miralax) 17 gm DAILY PRN PO CONSTIPATION Last administered on 10/02/16 08:39; Admin Dose 17 GM; Start 09/29/16 at 19:30 Ranitidine HCl (Zantac) 150 mg BID PO Last administered on 10/06/16 09:28; Admin Dose 150 MG; Start 09/29/16 at 21:00 Salmeterol Xinafoate/ Fluticasone (Advair 250/50 Diskus) 1 inh BID INH Last administered on 10/06/16 09:27; Admin Dose 1 INH; Start 09/29/16 at 21:00 Valsartan (Diovan) 80 mg DAILY PO Last administered on 10/05/16 09:35; Admin Dose 80 MG; Start 09/30/16 at 09:00 Venlafaxine HCl (Effexor) 75 mg DAILY PO Last administered on 10/05/16 09:36; Admin Dose 75 MG; Start 09/30/16 at 09:00 Zolpidem Tartrate (Ambien) 5 mg HS PRN PO INSOMNIA; Start 09/29/16 at 19:30 Senna (Senokot) 1 tab HS PO Last administered on 10/05/16 20:18; Admin Dose 1 TAB; Start 09/29/16 at 21:00 Acetaminophen (Tylenol Tab) 650 mg Q4H PRN PO PAIN; Start 09/29/16 at 19:30 Bisacodyl (Dulcolax Supp) 10 mg DAILY PRN [place] CONSTIPATION Last administered on 10/02/16 08:39; Admin Dose 10 MG; Start 09/29/16 at 19:30 Magnesium Hydroxide (Milk Of Mag) 30 ml BID PRN PO CONSTIPATION Last administered on 09/30/16 20:43; Admin Dose 30 ML; Start 09/29/16 at 19:30 Lactulose (Enulose) 20 gm DAILY PRN PO CONSTIPATION Last administered on 21:08; Admin Dose 20 GM; Start 09/29/16 at 19:30 Hydrocortisone (Hydrocortisone 2.5% Cr) 1 applic BID TOP Last administered on 20:26; Admin Dose 1 APPLIC; Start 10/01/16 at 21:00 Baclofen (Lioresal) 10 mg BID PO Last administered on 10/06/16 09:29; Admin Dose 10 MG; Start 10/02/16 at 11:30 Assessment/Plan Additional Assessment/Plan Rehab- Spinal stenosis with radiculopathy status post decompressive laminectomy. Excellent progress. Continue treatment Acute pain syndrome-under control. Chronic obstructive pulmonary disease. Hypertension. Hyperlipidemia. Constipation-continue bowel program ROSLYN SEVILLA MD Oct 06, 2016 12:27
--- NOTE | 2016-10-06 13:34 | CONS ---
Date/Time of Note Date/Time of Note DATE: 10/06/16 TIME: 13:28 Assessment/Plan Assessment/Plan Chief Complaint/Hosp Course 1. she is post op a lumbar spine surgery , 09/23/16, for spinal stenosis and radiculopathy . Continue current medication and PT . She is overall doing much better.. 2. confusion/disorientation is resolving , due to medication and probably some underlying cognitive impairment . 3. HTN , 4. COPD 5. hyperlipidemia 6. chronic constipation 7. rash on back , contact dermatitis , will apply hydrocortisone cream , this has improved. 8 she has a persistently elevated alkaline phosphatase and I am going to order an abdominal ultrasound . Problems: Consultation Date/Type/Reason Admit Date/Time Sep 29, 2016 at 18:18 Type of Consultation: medicine 24 HR Interval Summary Free Text/Dictation She is doing well . She has no complaints and continues to make good progress . Constitutional: improved, no complaints Exam/Review of Systems Vital Signs Vitals Vital Signs Date Time Temp Pulse Resp B/P Pulse Ox O2 Delivery O2 Flow Rate FiO2 10/06/16 08:23 98.7 69 18 133/62 96 10/04/16 08:00 Room Air Intake and Output 10/05/16 10/05/16 10/06/16 15:00 23:00 07:00 Intake Total 860 ml 240 ml Balance 860 ml 240 ml Exam Constitutional: alert, oriented, well developed Psych: nl mood/affect, no complaints Respiratory: clear to auscultation, normal air movement Cardiovascular: regular rate and rhythm Musculoskeletal: nl extremities to inspection Results Result Diagram: 10/06/16 0623 10/06/16 0623 Results 24 hrs Laboratory Tests Test 10/06/16 06:23 Alanine Aminotransferase (ALT/SGPT) 41 Albumin 3.3 Albumin/Globulin Ratio 1.10 Alkaline Phosphatase 163 H Anion Gap 12 Aspartate Amino Transf (AST/SGOT) 27 Basophils # 0.0 Basophils % 0.5 Blood Urea Nitrogen 18 Calcium Level 9.5 Carbon Dioxide Level 34 H Chloride Level 101 Creatinine 0.77 Direct Bilirubin 0.00 Eosinophils # 0.2 Eosinophils % 3.1 Globulin 3.00 Glucose Level 88 Hematocrit 36.1 L Hemoglobin 11.6 L Indirect Bilirubin 0.0 Lymphocytes # 1.5 Lymphocytes % 19.4 Mean Corpuscular Hemoglobin 30.5 Mean Corpuscular Hemoglobin Concent 32.1 Mean Corpuscular Volume 95.0 Mean Platelet Volume 8.9 Monocytes # 0.7 Monocytes % 9.7 Neutrophils # 5.1 Neutrophils % 66.8 Nucleated Red Blood Cells # 0.0 Nucleated Red Blood Cells % 0.0 Platelet Count 276 Potassium Level 4.8 Red Blood Count 3.80 L Red Cell Distribution Width 13.3 Sodium Level 142 Total Bilirubin 0.0 L Total Protein 6.3 White Blood Count 7.6 Medications Medications Current Medications Acetaminophen (Tylenol Tab) 650 mg Q4H PRN PO TEMP GREATER THAN 101F OR MAN; Start 09/29/16 at 19:30 Al Hydrox/Mg Hydrox/Simethicone (Mag-Al Plus) 15 ml Q4H PRN PO CONSTIPATION; Start 09/29/16 at 19:30 Amlodipine Besylate (Norvasc) 10 mg DAILY PO Last administered on 10/05/16 09: 36; Admin Dose 10 MG; Start 09/30/16 at 09:00 Citalopram Hydrobromide (Celexa) 20 mg DAILY PO Last administered on 10/06/16 09:28; Admin Dose 20 MG; Start 09/30/16 at 09:00 Clonidine (Catapres) 0.1 mg Q6H PRN PO SBP GREATER THAN 160; Start 09/29/16 at 19:30 Docusate Sodium (Colace) 100 mg BID PO Last administered on 10/06/16 09:27; Admin Dose 100 MG; Start 09/29/16 at 21:00 Ferrous Sulfate (Ferrous Sulfate (Ec)) 325 mg TID PO Last administered on 09:27; Admin Dose 325 MG; Start 09/29/16 at 21:00 Gabapentin (Neurontin) 100 mg TID PO Last administered on 10/06/16 09:27; Admin Dose 100 MG; Start 09/29/16 at 21:00 Acetaminophen/ Hydrocodone Bitart ([place] (5/325)) 1 tab Q4H PRN PO PAIN LEVEL 1 -5 Last administered on 10/05/16 20:19; Admin Dose 1 TAB; Start 09/29/16 at 19: 30 Acetaminophen/ Hydrocodone Bitart ([place] (5/325)) 2 tab Q4H PRN PO PAIN LEVEL 6 -10 Last administered on 10/06/16 08:00; Admin Dose 2 TAB; Start 09/29/16 at 19: 30 Lorazepam (Ativan) 0.5 mg BID PRN PO ANXIETY Last administered on 10/05/16 20: 19; Admin Dose 0.5 MG; Start 09/29/16 at 19:30 Metoprolol Tartrate (Lopressor) 37.5 mg BID PO Last administered on 10/05/16 20 :25; Admin Dose 37.5 MG; Start 09/29/16 at 21:00 Naloxone HCl (Narcan) 0.2 mg Q2M PRN IV RR 8 BREATHS/MIN OR LESS; Start at 19:30 Polyethylene Glycol (Miralax) 17 gm DAILY PRN PO CONSTIPATION Last administered on 10/02/16 08:39; Admin Dose 17 GM; Start 09/29/16 at 19:30 Ranitidine HCl (Zantac) 150 mg BID PO Last administered on 10/06/16 09:28; Admin Dose 150 MG; Start 09/29/16 at 21:00 Salmeterol Xinafoate/ Fluticasone (Advair 250/50 Diskus) 1 inh BID INH Last administered on 10/06/16 09:27; Admin Dose 1 INH; Start 09/29/16 at 21:00 Valsartan (Diovan) 80 mg DAILY PO Last administered on 10/05/16 09:35; Admin Dose 80 MG; Start 09/30/16 at 09:00 Venlafaxine HCl (Effexor) 75 mg DAILY PO Last administered on 10/05/16 09:36; Admin Dose 75 MG; Start 09/30/16 at 09:00 Zolpidem Tartrate (Ambien) 5 mg HS PRN PO INSOMNIA; Start 09/29/16 at 19:30 Senna (Senokot) 1 tab HS PO Last administered on 10/05/16 20:18; Admin Dose 1 TAB; Start 09/29/16 at 21:00 Acetaminophen (Tylenol Tab) 650 mg Q4H PRN PO PAIN; Start 09/29/16 at 19:30 Bisacodyl (Dulcolax Supp) 10 mg DAILY PRN [place] CONSTIPATION Last administered on 10/02/16 08:39; Admin Dose 10 MG; Start 09/29/16 at 19:30 Magnesium Hydroxide (Milk Of Mag) 30 ml BID PRN PO CONSTIPATION Last administered on 09/30/16 20:43; Admin Dose 30 ML; Start 09/29/16 at 19:30 Lactulose (Enulose) 20 gm DAILY PRN PO CONSTIPATION Last administered on 21:08; Admin Dose 20 GM; Start 09/29/16 at 19:30 Hydrocortisone (Hydrocortisone 2.5% Cr) 1 applic BID TOP Last administered on 20:26; Admin Dose 1 APPLIC; Start 10/01/16 at 21:00 Baclofen (Lioresal) 10 mg BID PO Last administered on 10/06/16 09:29; Admin Dose 10 MG; Start 10/02/16 at 11:30 KODI RASCON MD Oct 06, 2016 13:34
[2016-10-06 19:24] VITALS: BP 150/67
[2016-10-06] MEDS: SENNA TAB PO SCH (20:43)
[2016-10-06] MEDS: LORAZEPAM 0.5 MG TAB PO PRN (20:44)
[2016-10-07 08:00] VITALS: BP 144/64; PULSE 73; RESP 20
--- NOTE | 2016-10-07 09:16 | RADRPT ---
PROCEDURE: US Abdomen Limited . CLINICAL INDICATION: Elevated liver function tests and alkaline phosphatase. TECHNIQUE: Multiple real-time images were acquired of the patient's right upper quadrant abdomen u tilizing a high resolution transducer. COMPARISON: None FINDINGS: The liver measures 14.6 cm and demonstrates a normal echogenicity. The gallbladder has been removed. The common bile duct measures 4.2 mm in diameter. The visualized portions of the proximal pancreas are unremarkable. The tail of the pancreas is not well visualized. Antegrade flow is seen in the portal vein. Right kidney measures 9.0 cm. Increased cortical echogenicity is identified in the right kidney. N o hydronephrosis, masses or stones are noted. IMPRESSION: Unremarkable liver. Status post cholecystectomy. Increased cortical echogenicity in the right kidney. Finding may reflect medical renal disease. Tail of the pancreas not well visualized. If characterization of this structure is needed repeat exa m or CT/MRI is recommended. If further characterization of the abdomen is needed CT should be considered. RPTAT: AA .Kelechi Pacheco MD, MD Date Time Electronically viewed and signed by .Kelechi Pacheco MD, on 10/07/2016 09:16 .P/
[2016-10-07] MEDS: DOCUSATE SODIUM 100 MG CAP PO SCH ×2 (09:18→20:48)
[2016-10-07] MEDS: CITALOPRAM 20 MG TAB PO SCH (09:18)
[2016-10-07] MEDS: SALMETEROL/FLUTICASONE 250/50 INHA INH SCH ×2 (09:18→20:48)
[2016-10-07] MEDS: VALSARTAN 80 MG TAB PO SCH (09:23)
[2016-10-07] MEDS: VENLAFAXINE 75 MG TABLET PO SCH (09:24)
[2016-10-07] MEDS: BACLOFEN 10 MG TAB PO SCH ×2 (09:24→20:49)
[2016-10-07] MEDS: FERROUS SULFATE (EC) 325 MG TAB PO SCH ×3 (09:24→20:48)
[2016-10-07] MEDS: METOPROLOL 25 MG TAB PO SCH ×2 (09:25→20:50)
[2016-10-07] MEDS: GABAPENTIN 100 MG CAP PO SCH ×3 (09:26→20:49)
[2016-10-07] MEDS: RANITIDINE 150 MG TAB PO SCH ×2 (09:26→20:49)
[2016-10-07] MEDS: AMLODIPINE 10 MG TAB PO SCH (09:26)
[2016-10-07] MEDS: HYDROCORTISONE 2.5% 20 GM CR TOP SCH ×2 (09:27→20:50)
[2016-10-07] MEDS: HYDROCODONE/APAP (5/325) TAB PO PRN ×2 (09:47→23:00)
--- NOTE | 2016-10-07 12:21 | CONS ---
Date/Time of Note Date/Time of Note DATE: 10/07/16 TIME: 12:21 Consult Date/Type/Reason Admit Date/Time Sep 29, 2016 at 18:18 Type of Consultation: medicine Subjective doing well Objective pulm-cta sba ambulation Vital Signs Date Time Temp Pulse Resp B/P Pulse Ox O2 Delivery O2 Flow Rate FiO2 10/07/16 08:00 98.0 73 20 144/64 97 Room Air Intake and Output 10/06/16 10/06/16 10/07/16 15:00 23:00 07:00 Intake Total 720 ml 360 ml 350 ml Output Total 400 ml 1050 ml Balance 320 ml 360 ml -700 ml Results/Medications Result Diagram: 10/06/1662210/06/16622 Medications Current Medications Acetaminophen (Tylenol Tab) 650 mg Q4H PRN PO TEMP GREATER THAN 101F OR MAN; Start 09/29/16 at 19:30 Al Hydrox/Mg Hydrox/Simethicone (Mag-Al Plus) 15 ml Q4H PRN PO CONSTIPATION; Start 09/29/16 at 19:30 Amlodipine Besylate (Norvasc) 10 mg DAILY PO Last administered on 10/07/16 09: 26; Admin Dose 10 MG; Start 09/30/16 at 09:00 Citalopram Hydrobromide (Celexa) 20 mg DAILY PO Last administered on 10/07/16 09:18; Admin Dose 20 MG; Start 09/30/16 at 09:00 Clonidine (Catapres) 0.1 mg Q6H PRN PO SBP GREATER THAN 160; Start 09/29/16 at 19:30 Docusate Sodium (Colace) 100 mg BID PO Last administered on 10/07/16 09:18; Admin Dose 100 MG; Start 09/29/16 at 21:00 Ferrous Sulfate (Ferrous Sulfate (Ec)) 325 mg TID PO Last administered on 12:08; Admin Dose 325 MG; Start 09/29/16 at 21:00 Gabapentin (Neurontin) 100 mg TID PO Last administered on 10/07/16 12:08; Admin Dose 100 MG; Start 09/29/16 at 21:00 Acetaminophen/ Hydrocodone Bitart ([place] (5/325)) 1 tab Q4H PRN PO PAIN LEVEL 1 -5 Last administered on 10/07/16 09:47; Admin Dose 1 TAB; Start 09/29/16 at 19: 30 Acetaminophen/ Hydrocodone Bitart ([place] (5/325)) 2 tab Q4H PRN PO PAIN LEVEL 6 -10 Last administered on 10/06/16 08:00; Admin Dose 2 TAB; Start 09/29/16 at 19: 30 Lorazepam (Ativan) 0.5 mg BID PRN PO ANXIETY Last administered on 10/06/16 20: 44; Admin Dose 0.5 MG; Start 09/29/16 at 19:30 Metoprolol Tartrate (Lopressor) 37.5 mg BID PO Last administered on 10/07/16 09 :25; Admin Dose 37.5 MG; Start 09/29/16 at 21:00 Naloxone HCl (Narcan) 0.2 mg Q2M PRN IV RR 8 BREATHS/MIN OR LESS; Start at 19:30 Polyethylene Glycol (Miralax) 17 gm DAILY PRN PO CONSTIPATION Last administered on 10/02/16 08:39; Admin Dose 17 GM; Start 09/29/16 at 19:30 Ranitidine HCl (Zantac) 150 mg BID PO Last administered on 10/07/16 09:26; Admin Dose 150 MG; Start 09/29/16 at 21:00 Salmeterol Xinafoate/ Fluticasone (Advair 250/50 Diskus) 1 inh BID INH Last administered on 10/07/16 09:18; Admin Dose 1 INH; Start 09/29/16 at 21:00 Valsartan (Diovan) 80 mg DAILY PO Last administered on 10/07/16 09:23; Admin Dose 80 MG; Start 09/30/16 at 09:00 Venlafaxine HCl (Effexor) 75 mg DAILY PO Last administered on 10/07/16 09:24; Admin Dose 75 MG; Start 09/30/16 at 09:00 Zolpidem Tartrate (Ambien) 5 mg HS PRN PO INSOMNIA; Start 09/29/16 at 19:30 Senna (Senokot) 1 tab HS PO Last administered on 10/06/16 20:43; Admin Dose 1 TAB; Start 09/29/16 at 21:00 Acetaminophen (Tylenol Tab) 650 mg Q4H PRN PO PAIN; Start 09/29/16 at 19:30 Bisacodyl (Dulcolax Supp) 10 mg DAILY PRN [place] CONSTIPATION Last administered on 10/02/16 08:39; Admin Dose 10 MG; Start 09/29/16 at 19:30 Magnesium Hydroxide (Milk Of Mag) 30 ml BID PRN PO CONSTIPATION Last administered on 09/30/16 20:43; Admin Dose 30 ML; Start 09/29/16 at 19:30 Lactulose (Enulose) 20 gm DAILY PRN PO CONSTIPATION Last administered on 21:08; Admin Dose 20 GM; Start 09/29/16 at 19:30 Hydrocortisone (Hydrocortisone 2.5% Cr) 1 applic BID TOP Last administered on 09:27; Admin Dose 1 APPLIC; Start 10/01/16 at 21:00 Baclofen (Lioresal) 10 mg BID PO Last administered on 10/07/16 09:24; Admin Dose 10 MG; Start 10/02/16 at 11:30 Assessment/Plan Additional Assessment/Plan Rehab- Spinal stenosis with radiculopathy status post decompressive laminectomy. Continue rehab therapies Acute pain syndrome-under control. Chronic obstructive pulmonary disease. Hypertension. Hyperlipidemia. Constipation-continue bowel program ROSLYN SEVILLA MD Oct 07, 2016 12:21
--- NOTE | 2016-10-07 13:20 | CONS ---
Date/Time of Note Date/Time of Note DATE: 10/07/16 TIME: 13:15 Assessment/Plan Assessment/Plan Chief Complaint/Hosp Course 1. she is post op a lumbar spine surgery , 09/23/16, for spinal stenosis and radiculopathy . Continue current medication and PT . She is overall doing much better.. 2. confusion/disorientation is resolving , due to medication and probably some underlying cognitive impairment . 3. HTN , 4. COPD 5. hyperlipidemia 6. chronic constipation 7. rash on back , contact dermatitis , will apply hydrocortisone cream , this has improved. 8 she has a persistently elevated alkaline phosphatase and I am going to order an abdominal ultrasound . She had an ultrasound done yesterday. The the liver was normal. The elevated alkaline phosphatase could be coming from her bone. Problems: Consultation Date/Type/Reason Admit Date/Time Sep 29, 2016 at 18:18 Type of Consultation: medicine 24 HR Interval Summary Free Text/Dictation She is feeling better. She is doing well with physical therapy and is expected to go home tomorrow. Constitutional: improved, no complaints Exam/Review of Systems Vital Signs Vitals Vital Signs Date Time Temp Pulse Resp B/P Pulse Ox O2 Delivery O2 Flow Rate FiO2 10/07/16 08:00 98.0 73 20 144/64 97 Room Air Intake and Output 10/06/16 10/06/16 10/07/16 15:00 23:00 07:00 Intake Total 720 ml 360 ml 350 ml Output Total 400 ml 1050 ml Balance 320 ml 360 ml -700 ml Exam Constitutional: alert, oriented, well developed Psych: nl mood/affect, no complaints Respiratory: clear to auscultation, normal air movement Cardiovascular: nl pulses, regular rate and rhythm Gastrointestinal: soft Musculoskeletal: nl extremities to inspection Results Result Diagram: 10/06/1662210/06/16622 Medications Medications Current Medications Acetaminophen (Tylenol Tab) 650 mg Q4H PRN PO TEMP GREATER THAN 101F OR MAN; Start 09/29/16 at 19:30 Al Hydrox/Mg Hydrox/Simethicone (Mag-Al Plus) 15 ml Q4H PRN PO CONSTIPATION; Start 09/29/16 at 19:30 Amlodipine Besylate (Norvasc) 10 mg DAILY PO Last administered on 10/07/16t 09: 26; Admin Dose 10 MG; Start 09/30/16 at 09:00 Citalopram Hydrobromide (Celexa) 20 mg DAILY PO Last administered on 10/07/16 09:18; Admin Dose 20 MG; Start 09/30/16 at 09:00 Clonidine (Catapres) 0.1 mg Q6H PRN PO SBP GREATER THAN 160; Start 09/29/16 at 19:30 Docusate Sodium (Colace) 100 mg BID PO Last administered on 10/07/16 09:18; Admin Dose 100 MG; Start 09/29/16 at 21:00 Ferrous Sulfate (Ferrous Sulfate (Ec)) 325 mg TID PO Last administered on 12:08; Admin Dose 325 MG; Start 09/29/16 at 21:00 Gabapentin (Neurontin) 100 mg TID PO Last administered on 10/07/16 12:08; Admin Dose 100 MG; Start 09/29/16 at 21:00 Acetaminophen/ Hydrocodone Bitart ([place] (5/325)) 1 tab Q4H PRN PO PAIN LEVEL 1 -5 Last administered on 10/07/16 09:47; Admin Dose 1 TAB; Start 09/29/16 at 19: 30 Acetaminophen/ Hydrocodone Bitart ([place] (5/325)) 2 tab Q4H PRN PO PAIN LEVEL 6 -10 Last administered on 10/06/16 08:00; Admin Dose 2 TAB; Start 09/29/16 at 19: 30 Lorazepam (Ativan) 0.5 mg BID PRN PO ANXIETY Last administered on 10/06/16 20: 44; Admin Dose 0.5 MG; Start 09/29/16 at 19:30 Metoprolol Tartrate (Lopressor) 37.5 mg BID PO Last administered on 10/07/16 09 :25; Admin Dose 37.5 MG; Start 09/29/16 at 21:00 Naloxone HCl (Narcan) 0.2 mg Q2M PRN IV RR 8 BREATHS/MIN OR LESS; Start at 19:30 Polyethylene Glycol (Miralax) 17 gm DAILY PRN PO CONSTIPATION Last administered on 10/02/16 08:39; Admin Dose 17 GM; Start 09/29/16 at 19:30 Ranitidine HCl (Zantac) 150 mg BID PO Last administered on 10/07/16 09:26; Admin Dose 150 MG; Start 09/29/16 at 21:00 Salmeterol Xinafoate/ Fluticasone (Advair 250/50 Diskus) 1 inh BID INH Last administered on 10/07/16 09:18; Admin Dose 1 INH; Start 09/29/16 at 21:00 Valsartan (Diovan) 80 mg DAILY PO Last administered on 10/07/16 09:23; Admin Dose 80 MG; Start 09/30/16 at 09:00 Venlafaxine HCl (Effexor) 75 mg DAILY PO Last administered on 10/07/16 09:24; Admin Dose 75 MG; Start 09/30/16 at 09:00 Zolpidem Tartrate (Ambien) 5 mg HS PRN PO INSOMNIA; Start 09/29/16 at 19:30 Senna (Senokot) 1 tab HS PO Last administered on 10/06/16 20:43; Admin Dose 1 TAB; Start 09/29/16 at 21:00 Acetaminophen (Tylenol Tab) 650 mg Q4H PRN PO PAIN; Start 09/29/16 at 19:30 Bisacodyl (Dulcolax Supp) 10 mg DAILY PRN [place] CONSTIPATION Last administered on 10/02/16 08:39; Admin Dose 10 MG; Start 09/29/16 at 19:30 Magnesium Hydroxide (Milk Of Mag) 30 ml BID PRN PO CONSTIPATION Last administered on 09/30/16 20:43; Admin Dose 30 ML; Start 09/29/16 at 19:30 Lactulose (Enulose) 20 gm DAILY PRN PO CONSTIPATION Last administered on 21:08; Admin Dose 20 GM; Start 09/29/16 at 19:30 Hydrocortisone (Hydrocortisone 2.5% Cr) 1 applic BID TOP Last administered on 09:27; Admin Dose 1 APPLIC; Start 10/01/16 at 21:00 Baclofen (Lioresal) 10 mg BID PO Last administered on 10/07/16 09:24; Admin Dose 10 MG; Start 10/02/16 at 11:30 KODI RASCON MD Oct 07, 2016 13:19
[2016-10-07 20:27] VITALS: BP 148/64; RESP 18
[2016-10-07] MEDS: SENNA TAB PO SCH (20:49)
[2016-10-08 07:30] VITALS: BP 140/60; RESP 18
[2016-10-08] MEDS: CITALOPRAM 20 MG TAB PO SCH (08:56)
[2016-10-08] MEDS: SALMETEROL/FLUTICASONE 250/50 INHA INH SCH (08:56)
[2016-10-08] MEDS: GABAPENTIN 100 MG CAP PO SCH ×2 (08:56→12:38)
[2016-10-08] MEDS: AMLODIPINE 10 MG TAB PO SCH (08:57)
[2016-10-08] MEDS: VENLAFAXINE 75 MG TABLET PO SCH (08:58)
[2016-10-08] MEDS: FERROUS SULFATE (EC) 325 MG TAB PO SCH ×2 (08:58→12:38)
[2016-10-08] MEDS: DOCUSATE SODIUM 100 MG CAP PO SCH (08:58)
[2016-10-08] MEDS: RANITIDINE 150 MG TAB PO SCH (08:58)
[2016-10-08] MEDS: VALSARTAN 80 MG TAB PO SCH (08:58)
[2016-10-08] MEDS: BACLOFEN 10 MG TAB PO SCH (08:58)
[2016-10-08] MEDS: METOPROLOL 25 MG TAB PO SCH (08:58)
[2016-10-08] MEDS: HYDROCORTISONE 2.5% 20 GM CR TOP SCH (08:59)
--- NOTE | 2016-10-08 13:56 | CONS ---
Date/Time of Note Date/Time of Note DATE: 10/08/16 TIME: 13:54 Assessment/Plan Assessment/Plan Chief Complaint/Hosp Course 1. she is post op a lumbar spine surgery , 09/23/16, for spinal stenosis and radiculopathy . Continue current medication and PT . She is overall doing much better..She can be discharged to home today . 2. confusion/disorientation is resolving , due to medication and probably some underlying cognitive impairment . 3. HTN , 4. COPD 5. hyperlipidemia 6. chronic constipation 7. rash on back , contact dermatitis , will apply hydrocortisone cream , this has improved. 8 she has a persistently elevated alkaline phosphatase and I am going to order an abdominal ultrasound . She had an ultrasound done yesterday. The the liver was normal. The elevated alkaline phosphatase could be coming from her bone. Problems: Consultation Date/Type/Reason Admit Date/Time Sep 29, 2016 at 18:18 Type of Consultation: medicine 24 HR Interval Summary Free Text/Dictation She is up walking with a walker . She feels well . Constitutional: improved, no complaints Exam/Review of Systems Vital Signs Vitals Vital Signs Date Time Temp Pulse Resp B/P Pulse Ox O2 Delivery O2 Flow Rate FiO2 10/08/16 07:30 98.5 68 18 140/60 92 10/07/16 08:00 Room Air Intake and Output 10/07/16 10/07/16 10/08/16 15:00 23:00 07:00 Intake Total 720 ml 1030 ml 360 ml Output Total 200 ml 350 ml Balance 520 ml 680 ml 360 ml Exam Constitutional: alert, oriented, well developed Psych: nl mood/affect, no complaints Respiratory: clear to auscultation, normal air movement Cardiovascular: regular rate and rhythm Gastrointestinal: soft Musculoskeletal: nl extremities to inspection Results Result Diagram: 10/06/1623 10/06/16622 Medications Medications Current Medications Acetaminophen (Tylenol Tab) 650 mg Q4H PRN PO TEMP GREATER THAN 101F OR MAN; Start 09/29/16 at 19:30 Al Hydrox/Mg Hydrox/Simethicone (Mag-Al Plus) 15 ml Q4H PRN PO CONSTIPATION; Start 09/29/16 at 19:30 Amlodipine Besylate (Norvasc) 10 mg DAILY PO Last administered on 10/08/16t 08: 57; Admin Dose 10 MG; Start 09/30/16 at 09:00 Citalopram Hydrobromide (Celexa) 20 mg DAILY PO Last administered on 10/08/16 08:56; Admin Dose 20 MG; Start 09/30/16 at 09:00 Clonidine (Catapres) 0.1 mg Q6H PRN PO SBP GREATER THAN 160; Start 09/29/16 at 19:30 Docusate Sodium (Colace) 100 mg BID PO Last administered on 10/08/16 08:58; Admin Dose 100 MG; Start 09/29/16 at 21:00 Ferrous Sulfate (Ferrous Sulfate (Ec)) 325 mg TID PO Last administered on 12:38; Admin Dose 325 MG; Start 09/29/16 at 21:00 Gabapentin (Neurontin) 100 mg TID PO Last administered on 10/08/16 12:38; Admin Dose 100 MG; Start 09/29/16 at 21:00 Acetaminophen/ Hydrocodone Bitart ([place] (5/325)) 1 tab Q4H PRN PO PAIN LEVEL 1 -5 Last administered on 10/07/16 23:00; Admin Dose 1 TAB; Start 09/29/16 at 19: 30 Acetaminophen/ Hydrocodone Bitart ([place] (5/325)) 2 tab Q4H PRN PO PAIN LEVEL 6 -10 Last administered on 10/06/16 08:00; Admin Dose 2 TAB; Start 09/29/16 at 19: 30 Lorazepam (Ativan) 0.5 mg BID PRN PO ANXIETY Last administered on 10/06/16 20: 44; Admin Dose 0.5 MG; Start 09/29/16 at 19:30 Metoprolol Tartrate (Lopressor) 37.5 mg BID PO Last administered on 10/08/16 08 :58; Admin Dose 37.5 MG; Start 09/29/16 at 21:00 Naloxone HCl (Narcan) 0.2 mg Q2M PRN IV RR 8 BREATHS/MIN OR LESS; Start at 19:30 Polyethylene Glycol (Miralax) 17 gm DAILY PRN PO CONSTIPATION Last administered on 10/02/16 08:39; Admin Dose 17 GM; Start 09/29/16 at 19:30 Ranitidine HCl (Zantac) 150 mg BID PO Last administered on 10/08/16 08:58; Admin Dose 150 MG; Start 09/29/16 at 21:00 Salmeterol Xinafoate/ Fluticasone (Advair 250/50 Diskus) 1 inh BID INH Last administered on 10/08/16 08:56; Admin Dose 1 INH; Start 09/29/16 at 21:00 Valsartan (Diovan) 80 mg DAILY PO Last administered on 10/08/16 08:58; Admin Dose 80 MG; Start 09/30/16 at 09:00 Venlafaxine HCl (Effexor) 75 mg DAILY PO Last administered on 10/08/16 08:58; Admin Dose 75 MG; Start 09/30/16 at 09:00 Zolpidem Tartrate (Ambien) 5 mg HS PRN PO INSOMNIA Last administered on 22:56; Admin Dose 5 MG; Start 09/29/16 at 19:30 Senna (Senokot) 1 tab HS PO Last administered on 10/07/16 20:49; Admin Dose 1 TAB; Start 09/29/16 at 21:00 Acetaminophen (Tylenol Tab) 650 mg Q4H PRN PO PAIN; Start 09/29/16 at 19:30 Bisacodyl (Dulcolax Supp) 10 mg DAILY PRN [place] CONSTIPATION Last administered on 10/02/16 08:39; Admin Dose 10 MG; Start 09/29/16 at 19:30 Magnesium Hydroxide (Milk Of Mag) 30 ml BID PRN PO CONSTIPATION Last administered on 09/30/16 20:43; Admin Dose 30 ML; Start 09/29/16 at 19:30 Lactulose (Enulose) 20 gm DAILY PRN PO CONSTIPATION Last administered on 21:08; Admin Dose 20 GM; Start 09/29/16 at 19:30 Hydrocortisone (Hydrocortisone 2.5% Cr) 1 applic BID TOP Last administered on 08:59; Admin Dose 1 APPLIC; Start 10/01/16 at 21:00 Baclofen (Lioresal) 10 mg BID PO Last administered on 10/08/16 08:58; Admin Dose 10 MG; Start 10/02/16 at 11:30 KODI RASCON MD Oct 08, 2016 13:56
--- NOTE | 2016-10-13 12:30 | DS ---
DATE OF ADMISSION: 09/29/2016 DATE OF DISCHARGE: 10/08/2016 ADMISSION DIAGNOSES 1. Spinal stenosis with radiculopathy status post decompressive laminectomy. 2. Acute pain syndrome. 3. Chronic obstructive pulmonary disease. 4. Hypertension. 5. Hyperlipidemia. 6. Constipation. 7. Impairments in self-care and mobility. DISCHARGE DIAGNOSES: 1. Spinal stenosis with radiculopathy status post decompressive laminectomy. 2. Acute pain syndrome. 3. Chronic obstructive pulmonary disease. 4. Hypertension. 5. Hyperlipidemia. 6. Constipation. 7. Improvements in self-care and mobility. HOSPITAL COURSE: The patient was admitted for comprehensive interdisciplinary acute rehab and made excellent functional gains during the course of the stay. The patient progressed from an initial mo derate assist for self-care and mobility tasks and progressed to the point of supervised to modified independent for all areas of self-care and mobility including ambulating over 150 feet with the use of a front-wheel walker. The patient is being discharged home with the recommendation of [facility] physical therapy and occupational therapy followup. DISCHARGE MEDICATIONS: Per the medication reconciliation sheet. CONDITION ON DISCHARGE: Stable. Dictated By: ROSLYN STARK/NTS Conf#: [id number] DID#: [id number]
== END 2016-10-08 15:24 | disposition home health service (06) | DRG 948 ==
LOC: VRC 18:18
PROVIDERS: ADMIT Physical Medicine & Rehabilitation; ATTEND Internal Medicine
DX: G89.18 Other acute postprocedural pain (principal); J44.9 Chronic obstructive pulmonary disease, unspecified; I10 Essential (primary) hypertension; Z47.89 Encounter for other orthopedic aftercare; M54.16 Radiculopathy, lumbar region; M48.06 Spinal stenosis, lumbar region; E78.5 Hyperlipidemia, unspecified; K59.00 Constipation, unspecified
CPT/HCPCS: 76705; 80053; 81003; 85025; 87081; 87086; 95852; 97110; 97112; 97116; 97150; 97162; 97167; 97530; 97535